=== PATIENT | female | born 1940 | race Caucasian/White ===

== ENCOUNTER → 2016-07-31 | Outpatient (CLI) | payer BC ==
[~2016-07-31] MED LIST: ALBINS/ INH; ALBU0.08 INH; ALBUAER19 INH; ASPI81TA28 PO; ATOR-24 PO; BACL10TA PO; CALC-393 PO; CALCTAB5 PO; CHOL1TAB42 PO; CLC/300 PO; CLOP1TAB15 PO; DIAZ-165 PO; GABA-113 PO; HYDR-4079 PO; LISI-461 PO; LISI10TA PO; MRP25 PO; MULT-506 PO; OXYC1TAB3 PO; PANT1TAB48 PO; PARO1TAB27 PO; PRAM0.754 PO; PRAM1TAB PO; PRED-301 PO; PRED1SUS3 OPR; RANI150T3 PO; SENN-61 PO; SERT50TA PO; VERA180T10 PO; VERA240T20 PO; VITA400C15 PO; VNTHFA/IN INH; VRPSR240 PO
--- NOTE | 2016-07-31 14:29 | DIAGNOSTIC IMAGING REPORT ---
CHEST 2 VIEWS ROUTINE HISTORY: Shortness of breath. COMPARISON: Chest 06/23/2015. FINDINGS: There is a moderate hiatus hernia, unchanged. The heart is normal in size. No focal lung consolidations to suggest pneumonia. No evidence for pulmonary edema. No pleural effusions. No pneumothorax. IMPRESSION: No significant change compared to the prior study. No acute process. Moderate hiatus hernia. Electronically signed by: Caleb Rizo M.D. 07/31/2016 2:27 PM Dictated Date/Time: 07/31/2016 2:26 PM
== END | disposition home or self-care (01) ==
LOC: C.RAD 13:58
PROVIDERS: ATTEND Internal Medicine
DX: R06.02 Shortness of breath (principal); K44.9 Diaphragmatic hernia without obstruction or gangrene

== ENCOUNTER → 2016-10-13 | Day surgery (SDC) | payer BC ==
[2016-09-22 10:41] VITALS: Ht 156.2 cm; Wt 68.2 kg
[~2016-10-13] VITALS: Ht 156.2 cm; Wt 68.2 kg
[~2016-10-13] MED LIST changes: +500ML BSS 0.3ML EPI 1:1000PF IRRIG ONE; +ACETAMINOPHEN 325 MG TAB PO PRN; +AMVISC PLUS 0.8ML SYRINGE INT OCU ONE; +ATROPINE SULFATE 0.1 MG/ML 5ML SYR IV PRN; +BSS FLUSH ONE; -CLOP1TAB15 PO; +EpHEDrine SULFATE INJ 50 MG/ML AMP IV PRN; +EpINEphrine INJ 1MG/ML AMP 1 MG/ML AMP ONE; +FENTANYL CITRATE INJ 50 MCG/1 ML 2 ML VIAL ONE; +LACTATED RINGER'S 1000ML 500 ML IV SCH; +LIDOCAINE 3.5% OPH GEL PER APPLICATION CHARGE ONE; +LIDOCAINE HCL 1% MPF 2 ML VIAL ONE; -LISI10TA PO; +MIDAZOLAM HCL 1 MG/ML 2ML VIAL ONE; -MRP25 PO; +OCUCOAT 1 ML SOLN IO ONE; -OXYC1TAB3 PO; +POVIDONE-IODINE OP SOLN 30 ML BTL ONE; +PROPARACAINE 0.5% OP SOLN PER DROP CHARGE OPR SCH; -RANI150T3 PO; -SENN-61 PO; -SERT50TA PO; +TOBRAMYCIN/DEXAMETHASONE OPH OINT PER APPLN CHARGE ONE; -VERA180T10 PO; -VITA400C15 PO
[2016-10-13] MEDS: PHENYLEPHRINE HCL 2.5% OP SOLN PER DROP CHARGE OPR SCH ×2 (10:38→10:43)
[2016-10-13] MEDS: TROPICAMIDE 1% OP SOLN PER DROP CHARGE OPR SCH ×2 (10:39→10:44)
[2016-10-13] MEDS: CYCLOPENTOLATE HCL 1% OP SOLN PER DROP CHARGE OPR SCH ×2 (10:40→10:45)
[2016-10-13] MEDS: KETOROLAC 0.5% OP SOLN PER DROP CHARGE OPR SCH ×2 (10:41→10:46)
[2016-10-13] MEDS: GATIFLOXACIN OP SOLN PER DROP CHARGE OPR SCH ×2 (10:42→10:52)
--- NOTE | 2016-10-13 11:10 | History & Physical Bridge - SC ---
H&P Re-Evaluation Bridge Note: I have examined the patient, reviewed the History & Physical and in the interval since the performance of the History & Physical I have noted the following changes of clinical significance: Diagnosis: Right Cataract Procedure: Right Cataract Removal with Lens Implant No changes noted
--- NOTE | 2016-10-13 11:36 | History & Physical Bridge - SC ---
H&P Re-Evaluation Bridge Note: I have examined the patient, reviewed the History & Physical and in the interval since the performance of the History & Physical I have noted the following changes of clinical significance: No changes noted
--- NOTE | 2016-10-13 11:55 | Discharge Instructions-SurgCtr ---
Discharge Instructions Date of Service Oct 13, 2016. Visit Reason for Visit: Cataract Right Eye Discharge Discharge Diagnosis / Problem: cataract Discharge Goals Goal(s): Improve function Activity Recommendations Activity Limitations: per Instructions/Follow-up section Anesthesia . Post Anesthesia Instructions: If you have had General Anesthesia or IV Sedation: * Do not drive today. * Resume driving when surgeon permits. * Do not make important decisions or sign legal documents today. * Call surgeon for: 1. Temperature elevations greater than 101 degrees F. 2. Uncontrollable pain. 3. Excessive bleeding. 4. Persistent nausea and vomiting. 5. Medication intolerance (nausea, vomiting or rash). * For nausea and vomiting use only clear liquids such as: tea, soda, bouillon until nausea subsides, then gradually increase diet as tolerated. * If you have any concerns or questions, call your surgeon's office. If physician is unavailable and it is an emergency, call 911 or go to the nearest emergency room. . Instructions / Follow-Up Instructions / Follow-Up ACTIVITY RECOMMENDATIONS: * No strenuous lifting, jogging or running for 4 days * No swimming or yard work for 1 week. * Limited bending is permitted, such as putting on shoes. RETURN TO SCHOOL/WORK: No work until seen by physician in office. MEDICATIONS: Resume previous medications unless instructed otherwise by your surgeon. This includes eye drops for glaucoma. Zymaxid/Gatifloxacin (flores cap) - one drop every 2 hours until bedtime Nevanac/Ilevro/Prolensa/Ketorolac (spear cap) - one drop every 4 hours until bedtime Prednisolone (white/pink cap, SHAKE WELL) - one drop every 2 hours until bedtime Starting tomorrow - all 3 drops every 4 hours until seen in the office Optive drops - as needed for discomfort SPECIAL CARE INSTRUCTIONS: * Wear eyeshield when sleeping, for four nights. * You may wear your own glasses or sunglasses while awake. * You may read or watch TV * You may shower and wash your face, but be gentle around the eye and pat dry. * Blurry vision and mild irritation are normal. * Call office if pain is more severe or vision becomes dark at . FOLLOW UP VISIT: Follow-up with Dr Ivory tomorrow. Diet Recommendations Home Diet: resume previous diet Procedures Procedures Performed: Right Cataract Phacoemulsification With Intraocular Lens Implant Pending Studies Studies pending at discharge: no Medical Emergencies . Who to Call and When: Medical Emergencies: If at any time you feel your situation is an emergency, please call 911 immediately. . Non-Emergent Contact Non-Emergency issues call your: [employer] . . "Provider Documentation" section prepared by Raghav Ivory.
--- NOTE | 2016-10-13 11:56 | [facility] Operative Report ---
Operative Report Date of Service Oct 13, 2016. Operative Report 1. PREOPERATIVE DIAGNOSIS: Cataract of the right eye. 2. POSTOPERATIVE DIAGNOSIS: Same. 3. PROCEDURE: Phacoemulsification with intraocular lens implantation of the right eye. SURGEON: Dr. Raghav Ivory. ANESTHESIA: Topical Lidocaine gel, 1% Non- Preserved intracameral Lidocaine, and monitored intravenous sedation. INDICATIONS FOR THE PROCEDURE: The patient is a 76 - year-old female with a history of cataract of the right eye causing significant visual impairment. The details of the proposed procedure were explained to the patient who asked appropriate questions and following discussion of all risks, benefits and alternatives agreed to have the procedure done. 4. OPERATION AND FINDINGS: DESCRIPTION OF PROCEDURE: After informed consent was obtained, the patient was brought to the Operating Room at the [facility]. The patient was placed in a supine position and then the right eye was prepped and draped in the usual sterile fashion for intraocular surgery. A drop of topical Lidocaine gel was placed in the operative eye. A wire lid speculum was then placed in the fornices. A corneal paracentesis was then created temporally. The Non-Preserved Lidocaine was then instilled into the anterior chamber. The anterior chamber was then pressurized with viscoelastic. A 2.0 mm clear corneal incision was then created temporally. A cystotome was inserted into the anterior chamber and used to create a tear in the anterior lens capsule. This capsular tear was then used to create a small flap and the flap was dragged in a counterclockwise direction in order to create a continuous curvilinear capsulorrhexis. Hydrodissection was accomplished with balanced salt solution. Phacoemulsification of the lens nucleus was then performed in a standard [id number] technique. The phaco time was 21 seconds with an average power of 12 %. The remaining cortical material was removed using irrigation aspiration. The capsular bag was then filled with viscoelastic. A Bausch & Lomb MI60L +23.5 diopters lens was then loaded into the injector and injected into the capsular bag. The remaining viscoelastic was removed with the irrigation aspiration handpiece. The wound was hydrated and then checked and found to be watertight. The intraocular pressure was checked and found to be adequate. The wire lid speculum was removed and the patient's face was cleaned and dried. TobraDex ointment was placed in the inferior fornix. The patient was discharged to the Recovery Room having tolerated the procedure well. There were no complications. The patient will be seen tomorrow in the office for follow-up. I attest to the content of the Intraoperative Record and any orders documented therein. Any exceptions are noted below.
[2016-10-13 12:30] VITALS: BP 151/80; PULSE 63; O2SAT 98
--- NOTE | 2016-10-13 12:47 | Anesthesia Progress Nt - [facility] ---
Anesthesia Post Op Note Date & Time Oct 13, 2016 at 12:46 Vital Signs Pain Intensity: 0 Vital Signs Past 12 Hours Date Time Temp Pulse Resp B/P Pulse Ox O2 Delivery O2 Flow Rate FiO2 10/13/16 12:30 63 16 151/80 98 Room Air 10/13/16 12:00 36.4 62 16 154/75 98 Room Air 10/13/16 10:36 36.8 68 20 150/84 97 Room Air Notes Mental Status: alert / awake / arousable, participated in evaluation Pt Amnestic to Procedure: Yes Nausea / Vomiting: adequately controlled Pain: adequately controlled Airway Patency, RR, SpO2: stable & adequate BP & HR: stable & adequate Hydration State: stable & adequate Anesthetic Complications: no major complications apparent
== END | disposition home or self-care (01) ==
LOC: X.SURG 09:52
PROVIDERS: ATTEND Ophthalmology
DX: H26.9 Unspecified cataract (principal)

== ENCOUNTER → 2016-10-19 | Outpatient (CLI) | payer BC ==
[~2016-10-19] MED LIST changes: -500ML BSS 0.3ML EPI 1:1000PF IRRIG ONE; -ACETAMINOPHEN 325 MG TAB PO PRN; -AMVISC PLUS 0.8ML SYRINGE INT OCU ONE; -ATROPINE SULFATE 0.1 MG/ML 5ML SYR IV PRN; -BSS FLUSH ONE; -EpHEDrine SULFATE INJ 50 MG/ML AMP IV PRN; -EpINEphrine INJ 1MG/ML AMP 1 MG/ML AMP ONE; -FENTANYL CITRATE INJ 50 MCG/1 ML 2 ML VIAL ONE; -LACTATED RINGER'S 1000ML 500 ML IV SCH; -LIDOCAINE 3.5% OPH GEL PER APPLICATION CHARGE ONE; -LIDOCAINE HCL 1% MPF 2 ML VIAL ONE; -MIDAZOLAM HCL 1 MG/ML 2ML VIAL ONE; -OCUCOAT 1 ML SOLN IO ONE; -POVIDONE-IODINE OP SOLN 30 ML BTL ONE; -PROPARACAINE 0.5% OP SOLN PER DROP CHARGE OPR SCH; -TOBRAMYCIN/DEXAMETHASONE OPH OINT PER APPLN CHARGE ONE
[2016-10-19 17:39] LABS: BASO % 0.5 %; BASO ABS # 0.03 K/uL (0-0.2); COMPLETE YES; EOS % 0.3 %; HEMATOCRIT 41.3 % (37-47); IG% 0.2 %; LYMPH % 7.6 %; MEAN CELL VOLUME 97.4 fL (80-100); MEAN CORPUSCULAR HEMOGLOBIN 31.1 pg (25-34); MEAN PLATELET VOLUME 10.4 fL (7.4-10.4); MONO % 5.3 %; NEUT % 86.1 %; PLATELET COUNT 234 K/uL (130-400); RED BLOOD COUNT 4.24 M/uL (4.2-5.4); WHITE BLOOD COUNT 6.61 K/uL (4.8-10.8)
[2016-10-19 19:17] LABS: BLOOD UREA NITROGEN 11 mg/dl (7-18); CALCIUM 8.8 mg/dl (8.5-10.1); CARBON DIOXIDE 23 mmol/L (21-32); CHLORIDE 99 mmol/L (98-107); GLUCOSE 243 mg/dl (70-99); POTASSIUM 3.5 mmol/L (3.5-5.1); SODIUM 137 mmol/L (136-145)
== END | disposition home or self-care (01) ==
LOC: C.LABBFT 11:37
PROVIDERS: ATTEND Nurse Practitioner
DX: R60.9 Edema, unspecified (principal); T14.8 Other injury of unspecified body region; X58.XXXA Exposure to other specified factors, initial encounter

== ENCOUNTER → 2016-10-28 | Outpatient (CLI) | payer BC ==
[2016-10-28 17:44] LABS: ALT/SGPT 30 U/L (12-78); AST/SGOT 16 U/L (15-37); BLOOD UREA NITROGEN 19 mg/dl (7-18); BUN/CREATININE RATIO 22.3 (10-20); CALCIUM 8.7 mg/dl (8.5-10.1); CARBON DIOXIDE 27 mmol/L (21-32); CHLORIDE 105 mmol/L (98-107); CHOLESTEROL 275 mg/dl (0-200); CREATININE 0.85 mg/dl (0.60-1.20); GLUCOSE 118 mg/dl (70-99); POTASSIUM 4.1 mmol/L (3.5-5.1); SODIUM 140 mmol/L (136-145)
[2016-10-28 17:55] LABS: ALB/GLOB RATIO 1.3 (0.9-2); ALKALINE PHOSPHATASE 100 U/L (45-117); CHOLESTEROL/HDL RATIO 3.6; HDL CHOLESTEROL 77 mg/dl; LDL CHOLESTEROL CALCULATED 132 mg/dl; THYROID STIMULATING HORMONE 0.609 uIu/ml (0.300-4.500); TRIGLYCERIDES 329 mg/dl (0-150); VERY LOW DENSITY LIPOPROT CALC 66 mg/dl
[2016-10-29 06:48] LABS: ESTIMATED AVERAGE GLUCOSE 143 mg/dl; HA1C FLAG Normal (Normal)
== END | disposition home or self-care (01) ==
LOC: C.LABBFT 14:28
PROVIDERS: ATTEND Internal Medicine
DX: N31.8 Other neuromuscular dysfunction of bladder (principal); R73.01 Impaired fasting glucose; E78.5 Hyperlipidemia, unspecified

== ENCOUNTER → 2016-11-05 | Day surgery (SDC) | payer BC ==
[2016-10-26 11:06] VITALS: Ht 156.2 cm; Wt 68.2 kg
[~2016-11-05] VITALS: Ht 156.2 cm; Wt 68.2 kg
[~2016-11-05] MED LIST changes: +ACETAMINOPHEN 325 MG TAB PO PRN; +ATROPINE SULFATE 0.1 MG/ML 5ML SYR IV PRN; +EpHEDrine SULFATE INJ 50 MG/ML AMP IV PRN; +EpINEphrine INJ 1MG/ML AMP 1 MG/ML AMP ONE; +FENTANYL CITRATE INJ 50 MCG/1 ML 2 ML VIAL IV PRN; +FENTANYL CITRATE INJ 50 MCG/1 ML 2 ML VIAL ONE; +FLUMAZENIL 0.1 MG/1 ML 10 ML VIAL IV PRN; +HYDROmorphone INJ 2 MG/ML SYR/VIAL IV PRN; +LABETALOL HCL IV 5 MG/ML 20ML IV PRN; +LACTATED RINGER'S 1000ML 500 ML IV SCH; +LIDOCAINE 3.5% OPH GEL PER APPLICATION CHARGE ONE; +LIDOCAINE HCL 1% MPF 2 ML VIAL ONE; +MEPERIDINE HCL 25 MG/ML CARP IV PRN; +MIDAZOLAM HCL 1 MG/ML 2ML VIAL ONE; +NALOXONE HCL 0.4 MG/1 ML VIAL/CARP IV PRN; +ONDANSETRON INJ 2 MG/ML 2 ML VIAL IV PRN; +PHENYLEPHRINE 100MCG/ML 5ML SYR IV PRN; +POVIDONE-IODINE OP SOLN 30 ML BTL ONE; +PROPARACAINE 0.5% OP SOLN PER DROP CHARGE OPL SCH; +TOBRAMYCIN/DEXAMETHASONE OPH OINT PER APPLN CHARGE ONE
[2016-11-05] MEDS: PHENYLEPHRINE HCL 2.5% OP SOLN PER DROP CHARGE OPL SCH ×2 (08:27→08:35)
[2016-11-05] MEDS: TROPICAMIDE 1% OP SOLN PER DROP CHARGE OPL SCH ×2 (08:28→08:36)
[2016-11-05] MEDS: CYCLOPENTOLATE HCL 1% OP SOLN PER DROP CHARGE OPL SCH ×2 (08:29→08:37)
[2016-11-05] MEDS: KETOROLAC 0.5% OP SOLN PER DROP CHARGE OPL SCH ×2 (08:30→08:38)
[2016-11-05] MEDS: GATIFLOXACIN OP SOLN PER DROP CHARGE OPL SCH ×2 (08:31→08:41)
--- NOTE | 2016-11-05 08:52 | History & Physical Bridge - SC ---
H&P Re-Evaluation Bridge Note: I have examined the patient, reviewed the History & Physical and in the interval since the performance of the History & Physical I have noted the following changes of clinical significance: Diagnosis: Left Cataract Procedure: Left Cataract Removal with Lens Implant No changes noted
--- NOTE | 2016-11-05 09:36 | Discharge Instructions-SurgCtr ---
Discharge Instructions Date of Service November 05, 2016. Visit Reason for Visit: Cataract Left Eye Discharge Discharge Diagnosis / Problem: cataract Discharge Goals Goal(s): Improve function Activity Recommendations Activity Limitations: per Instructions/Follow-up section Anesthesia . Post Anesthesia Instructions: If you have had General Anesthesia or IV Sedation: * Do not drive today. * Resume driving when surgeon permits. * Do not make important decisions or sign legal documents today. * Call surgeon for: 1. Temperature elevations greater than 101 degrees F. 2. Uncontrollable pain. 3. Excessive bleeding. 4. Persistent nausea and vomiting. 5. Medication intolerance (nausea, vomiting or rash). * For nausea and vomiting use only clear liquids such as: tea, soda, bouillon until nausea subsides, then gradually increase diet as tolerated. * If you have any concerns or questions, call your surgeon's office. If physician is unavailable and it is an emergency, call 911 or go to the nearest emergency room. . Instructions / Follow-Up Instructions / Follow-Up ACTIVITY RECOMMENDATIONS: * No strenuous lifting, jogging or running for 4 days * No swimming or yard work for 1 week. * Limited bending is permitted, such as putting on shoes. RETURN TO SCHOOL/WORK: No work until seen by physician in office. MEDICATIONS: Resume previous medications unless instructed otherwise by your surgeon. This includes eye drops for glaucoma. Zymaxid/Gatifloxacin (flores cap) - one drop every 2 hours until bedtime Nevanac/Ilevro/Prolensa/Ketorolac (spear cap) - one drop every 4 hours until bedtime Prednisolone (white/pink cap, SHAKE WELL) - one drop every 2 hours until bedtime Starting tomorrow - all 3 drops every 4 hours until seen in the office Optive drops - as needed for discomfort SPECIAL CARE INSTRUCTIONS: * Wear eyeshield when sleeping, for four nights. * You may wear your own glasses or sunglasses while awake. * You may read or watch TV * You may shower and wash your face, but be gentle around the eye and pat dry. * Blurry vision and mild irritation are normal. * Call office if pain is more severe or vision becomes dark at . FOLLOW UP VISIT: Follow-up with Dr Ivory tomorrow. Diet Recommendations Home Diet: resume previous diet Procedures Procedures Performed: Left Cataract Phacoemulsification With Intraocular Lens Implant Pending Studies Studies pending at discharge: no Medical Emergencies . Who to Call and When: Medical Emergencies: If at any time you feel your situation is an emergency, please call 911 immediately. . Non-Emergent Contact Non-Emergency issues call your: [employer] . . "Provider Documentation" section prepared by Raghav Ivory. .
--- NOTE | 2016-11-05 09:37 | [facility] Operative Report ---
Operative Report Date of Service November 05, 2016. Operative Report 1. PREOPERATIVE DIAGNOSIS: Cataract of the left eye. 2. POSTOPERATIVE DIAGNOSIS: Same. 3. PROCEDURE: Phacoemulsification with intraocular lens implantation of the left eye. SURGEON: Dr. Raghav Ivory. ANESTHESIA: Topical Lidocaine gel, 1% Non- Preserved intracameral Lidocaine, and monitored intravenous sedation. INDICATIONS FOR THE PROCEDURE: The patient is a 76 - year-old female with a history of cataract of the left eye causing significant visual impairment. The details of the proposed procedure were explained to the patient who asked appropriate questions and following discussion of all risks, benefits and alternatives agreed to have the procedure done. 4. OPERATION AND FINDINGS: DESCRIPTION OF PROCEDURE: After informed consent was obtained, the patient was brought to the Operating Room at the [facility]. The patient was placed in a supine position and then the left eye was prepped and draped in the usual sterile fashion for intraocular surgery. A drop of topical Lidocaine gel was placed in the operative eye. A wire lid speculum was then placed in the fornices. A corneal paracentesis was then created temporally. The Non-Preserved Lidocaine was then instilled into the anterior chamber. The anterior chamber was then pressurized with viscoelastic. A 2.0 mm clear corneal incision was then created temporally. A cystotome was inserted into the anterior chamber and used to create a tear in the anterior lens capsule. This capsular tear was then used to create a small flap and the flap was dragged in a counterclockwise direction in order to create a continuous curvilinear capsulorrhexis. Hydrodissection was accomplished with balanced salt solution. Phacoemulsification of the lens nucleus was then performed in a standard [id number] technique. The phaco time was 24 seconds with an average power of 14 %. The remaining cortical material was removed using irrigation aspiration. The capsular bag was then filled with viscoelastic. A Bausch & Lomb MI60L +25.5 diopters lens was then loaded into the injector and injected into the capsular bag. The remaining viscoelastic was removed with the irrigation aspiration handpiece. The wound was hydrated and then checked and found to be watertight. The intraocular pressure was checked and found to be adequate. The wire lid speculum was removed and the patient's face was cleaned and dried. TobraDex ointment was placed in the inferior fornix. The patient was discharged to the Recovery Room having tolerated the procedure well. There were no complications. The patient will be seen tomorrow in the office for follow-up. I attest to the content of the Intraoperative Record and any orders documented therein. Any exceptions are noted below.
[2016-11-05 09:39] VITALS: TEMP 36.2
--- NOTE | 2016-11-05 09:51 | Anesthesia Progress Nt - [facility] ---
Anesthesia Post Op Note Date & Time November 05, 2016 at 09:51 Vital Signs Pain Intensity: 0 Vital Signs Past 12 Hours Date Time Temp Pulse Resp B/P Pulse Ox O2 Delivery O2 Flow Rate FiO2 11/05/16 09:39 36.2 57 16 158/77 94 Room Air 11/05/16 08:08 36.5 58 16 145/82 95 Room Air Notes Mental Status: alert / awake / arousable, participated in evaluation Pt Amnestic to Procedure: Yes Nausea / Vomiting: adequately controlled Pain: adequately controlled Airway Patency, RR, SpO2: stable & adequate BP & HR: stable & adequate Hydration State: stable & adequate Anesthetic Complications: no major complications apparent
[2016-11-05 10:08] VITALS: BP 142/76; PULSE 68; O2SAT 95
== END | disposition home or self-care (01) ==
LOC: X.SURG 07:48
PROVIDERS: ATTEND Ophthalmology
DX: H25.9 Unspecified age-related cataract (principal); I25.10 Atherosclerotic heart disease of native coronary artery without angina pectoris; I51.9 Heart disease, unspecified; J45.909 Unspecified asthma, uncomplicated; K21.9 Gastro-esophageal reflux disease without esophagitis; D68.51 Activated protein C resistance; L93.0 Discoid lupus erythematosus; I10 Essential (primary) hypertension; E78.5 Hyperlipidemia, unspecified; Z79.52 Long term (current) use of systemic steroids; M81.0 Age-related osteoporosis without current pathological fracture; G47.33 Obstructive sleep apnea (adult) (pediatric); G25.81 Restless legs syndrome; E55.9 Vitamin D deficiency, unspecified; Z79.899 Other long term (current) drug therapy

== ENCOUNTER 2016-11-18 12:50 | Emergency (ER) | payer BC ==
[~2016-11-18] VITALS: Ht 154.9 cm; Wt 69.7 kg
[~2016-11-18 12:50] MED LIST changes: -ACETAMINOPHEN 325 MG TAB PO PRN; -ASPI81TA28 PO; -ATROPINE SULFATE 0.1 MG/ML 5ML SYR IV PRN; -CALC-393 PO; -CLC/300 PO; -EpHEDrine SULFATE INJ 50 MG/ML AMP IV PRN; -EpINEphrine INJ 1MG/ML AMP 1 MG/ML AMP ONE; -FENTANYL CITRATE INJ 50 MCG/1 ML 2 ML VIAL IV PRN; -FENTANYL CITRATE INJ 50 MCG/1 ML 2 ML VIAL ONE; -FLUMAZENIL 0.1 MG/1 ML 10 ML VIAL IV PRN; -HYDROmorphone INJ 2 MG/ML SYR/VIAL IV PRN; -LABETALOL HCL IV 5 MG/ML 20ML IV PRN; -LACTATED RINGER'S 1000ML 500 ML IV SCH; -LIDOCAINE 3.5% OPH GEL PER APPLICATION CHARGE ONE; -LIDOCAINE HCL 1% MPF 2 ML VIAL ONE; -MEPERIDINE HCL 25 MG/ML CARP IV PRN; -MIDAZOLAM HCL 1 MG/ML 2ML VIAL ONE; -NALOXONE HCL 0.4 MG/1 ML VIAL/CARP IV PRN; -ONDANSETRON INJ 2 MG/ML 2 ML VIAL IV PRN; -PHENYLEPHRINE 100MCG/ML 5ML SYR IV PRN; -POVIDONE-IODINE OP SOLN 30 ML BTL ONE; -PRAM0.754 PO; -PROPARACAINE 0.5% OP SOLN PER DROP CHARGE OPL SCH; -TOBRAMYCIN/DEXAMETHASONE OPH OINT PER APPLN CHARGE ONE; -VNTHFA/IN INH; -VRPSR240 PO
[2016-11-18 12:52] VITALS: TEMP 36.9; Ht 154.9 cm; Wt 69.7 kg
[2016-11-18] MEDS ORDERED: HYDROCODONE/ACETAMOPHEN 5/325MG TAB PO STA (13:20)
--- NOTE | 2016-11-18 14:21 | EMERGENCY ROOM VISIT NOTE ---
ED Visit Note First contact with patient: 13:01 I have seen and examined this patient with Renata Stinson and generally agree with the treatment plan as discussed. Problem List Medical Problems: (1) Acute exacerbation of chronic low back pain Status: Resolved (2) Acute exacerbation of chronic low back pain Status: Resolved (3) Altered mental status Status: Resolved (4) Asthma, Unspecified Status: Chronic (5) Chronic low back pain Status: Chronic (6) Confusion Status: Resolved (7) Factor V Leiden Status: Chronic (8) Fever Status: Resolved (9) History of spinal stenosis Status: Chronic (10) Hypertension Nos Status: Chronic (11) Low back pain Status: Resolved (12) Low back pain Status: Resolved (13) Lupus Status: Chronic (14) Mixed Hyperlipidemia Status: Chronic (15) Narcotic withdrawal Status: Resolved (16) Obstructive Sleep Apnea (Adult) (Pediatric) Status: Chronic (17) Opioid withdrawal Status: Resolved (18) Pneumonia Status: Resolved (19) Reflux Esophagitis Status: Chronic (20) Restless leg syndrome Status: Chronic (21) Shortness of breath Status: Resolved (22) Spinal stenosis Status: Resolved (23) Stroke Status: Resolved (24) Unspecified Urinary Incontinence Status: Chronic (25) Weakness Status: Resolved Surgical Problems: (1) H/O cataract extraction Status: Resolved (2) History of back surgery Status: Resolved Current/Historical Medications Scheduled Albuterol Sulf (Proventil 0.083% 2.5MG/3ML), 2.5 MG INH QAM Atorvastatin (Lipitor), 40 MG PO QPM Calcium (Caltrate), 600 MG PO BID Cholecalciferol (Vitamin D), 1 TAB PO QAM Gabapentin (Neurontin), 300 MG PO HS Lisinopril (Zestril), 10 MG PO HS Multivitamin (Multivitamin), 1 TAB PO QAM Pantoprazole (Protonix), 40 MG PO BID Paroxetine (Paxil), 20 MG PO QAM Pramipexole Dihydrochloride (Mirapex), 1 TAB PO HS Prednisolone Acetate (Ophth) (Pred Forte 1% Oph), 1 DROPS OPR TID Prednisone (Prednisone), 7.5 MG PO QAM Verapamil Sust Rel (Calan Sr Ext Rel), 240 MG PO HS Scheduled PRN Albuterol Inhaler (Ventolin Inhaler), 2 PUFFS INH QID PRN for Shortness of Breath Albuterol Soln (Proventil 0.083% 2.5MG/3ML), 2.5 MG INH QID PRN for SOB/Wheezing Baclofen (Lioresal), 10 MG PO HS PRN for Muscle Spasms Diazepam (Valium), 5 MG PO TID PRN for Muscle Spasms Hydrocodone/Acetaminophen 10MG/325MG (Ephraim 10MG/325MG), 1 TAB PO Q6H PRN for Pain Allergies Coded Allergies: Penicillins (Verified Allergy, Intermediate, HIVES, 11/05/16) Adhesives (Verified Allergy, Unknown, SKIN REDNESS AND IRRITATION, 11/05/16 ) Latex (Verified Allergy, Unknown, PATIENT UNSURE, 11/05/16) Tolterodine (Verified Adverse Reaction, Intermediate, GI SYMPTOMS, 11/05/16 ) Nausea/vomiting Vital Signs Date Time Temp Pulse Resp B/P Pulse Ox O2 Delivery O2 Flow Rate FiO2 11/18/16 12:52 36.9 82 18 171/91 96 Room Air Medications Administered Medications (Trade) Dose Ordered Sig/Bruce Route Start Time Stop Time Status Last Admin Dose Admin Acetaminophen/ Hydrocodone Bitart (Ephraim 5/325 Tab) 1 tab NOW STAT PO 11/18/16 13:20 11/18/16 13:22 DC 11/18/16 13:50 1 TAB Departure Information Referrals Manuel Crum M.D. (PCP) Patient Instructions [facility]
[2016-11-18] MEDS ORDERED: VNTHFA/IN INH (14:25)
[2016-11-18] MEDS ORDERED: ALBINS/ INH (14:25)
[2016-11-18] MEDS ORDERED: VRPSR240 PO (14:25)
[2016-11-18] MEDS ORDERED: PRAM0.754 PO (14:25)
[2016-11-18] MEDS ORDERED: ATOR-24 PO (14:25)
[2016-11-18] MEDS ORDERED: CALC-393 PO (14:26)
[2016-11-18] MEDS ORDERED: ASPI81TA28 PO (14:29)
--- NOTE | 2016-11-18 14:36 | DIAGNOSTIC IMAGING REPORT ---
RIGHT WRIST MIN 3 VIEWS ROUTINE CLINICAL HISTORY: RIGHT, EVAL FX Right trauma. Pain. COMPARISON: None. DISCUSSION: Transverse slightly ankle fracture distal ulnar shaft. No evidence of dislocation. Mild surrounding soft tissue edematous change. Significant degenerative change of the carpometacarpal region. IMPRESSION: Slightly angled fracture distal ulnar shaft. Degenerative change. Electronically signed by: Mitcehl Wright M.D. 11/18/2016 2:35 PM Dictated Date/Time: 11/18/2016 2:34 PM
--- NOTE | 2016-11-18 14:38 | DIAGNOSTIC IMAGING REPORT ---
RIGHT ELBOW 3 VIEWS CLINICAL HISTORY: Fall with right elbow pain. FINDINGS: 3 portable views of the right elbow are obtained. No prior studies are available for comparison at the time of dictation. The examination is degraded by inability to properly position the patient. The skeletal structures are osteopenic. There is no radiographic evidence of fracture. The joint spaces appear maintained. No joint effusion is identified. The overlying soft tissues are within normal limits. IMPRESSION: There is no radiographic evidence of right elbow fracture. Electronically signed by: Elia Junior M.D. 11/18/2016 2:37 PM Dictated Date/Time: 11/18/2016 2:35 PM
[2016-11-18] MEDS ORDERED: DIPHTHERIA/TETANUS/PERTUSSIS 0.5 ML SYR/VIAL IM. ONE (14:45)
[2016-11-18] MEDS ORDERED: LIDOCAINE/EPINEPHRINE 1% 20 ML VIAL INFIL ONE (14:45)
[2016-11-18] MEDS ORDERED: CLC/300 PO (16:19)
--- NOTE | 2016-11-18 16:21 | EMERGENCY ROOM VISIT NOTE ---
History First contact with patient: 13:01 Chief Complaint: FALL Stated Complaint: FALL History of Present Illness Patient is a [id number] 76-year-old white female who presents to the emergency department by S ambulance and accompanied by her for evaluation of a right forearm injury. Patient sustained a mechanical fall outside on her deck this afternoon. She reports that she was picking bugs off follow-up plans, and was walking without her cane or walker, when she lost her balance and fell. She tried to grab a hold of a pole on the deck, but it was not secured and she fell. She landed on her flexed knees, and tried to catch herself on her extended arms, right worse than left. She did not strike her head or lose consciousness. Her was out walking their dog, and found her and helped her up. She was ambulatory into the home where they applied a towel to her forearm and an ice pack. There was bleeding from a small laceration on the right forearm. The patient complains primarily of pain from her right wrist to her right elbow. She has been holding it on her chest and states that it hurts to move. They noted bruising to her knees bilaterally, right worse than left, and a small abrasion. She denies feeling lightheaded, dizzy or experiencing any palpitations prior to the fall. She reports that she has difficulty ambulating well due to arthritis and lumbar spine disease. She reports that she had a fall in her bedroom about a week ago when she injured the same right wrist. Patient rates her discomfort a 9/10. She denies any chest, neck or low back pain. No rib pain. No difficulty breathing, cough, wheezing or shortness of breath. Review of Systems Review of systems as per HPI. All other systems reviewed were negative. 10 systems reviewed. Past Medical/Surgical History Medical Problems: (1) Acute exacerbation of chronic low back pain (2) Acute exacerbation of chronic low back pain (3) Altered mental status (4) Asthma, Unspecified (5) Chronic low back pain (6) Confusion (7) Factor V Leiden (8) Fever (9) History of spinal stenosis (10) Hypertension Nos (11) Low back pain (12) Low back pain (13) Lupus (14) Mixed Hyperlipidemia (15) Narcotic withdrawal (16) Obstructive Sleep Apnea (Adult) (Pediatric) (17) Opioid withdrawal (18) Pneumonia (19) Reflux Esophagitis (20) Restless leg syndrome (21) Shortness of breath (22) Spinal stenosis (23) Stroke (24) Unspecified Urinary Incontinence (25) Weakness Surgical Problems: (1) H/O cataract extraction (2) History of back surgery Electronic medical records are reviewed and summarized as above/below. See Problem List. Family History No pertinent family history Social History Smoking Status: Never Smoker Alcohol Use: none Drug Use: none Marital Status: Housing Status: lives with family, unknown Occupation Status: retired Current/Historical Medications Scheduled Albuterol Hfa (Ventolin Hfa), 2 PUFFS INH QID Albuterol Sulf (Proventil 0.083% 2.5MG/3ML), 2.5 MG INH QID Aspirin (Aspirin Ec), 81 MG PO QPM Calcium Carbonate (Calcium), 600 MG PO BID Cholecalciferol (Vitamin D), 1 TAB PO QAM Clindamycin HCl (Clindamycin HCl), 1 CAP PO TID Gabapentin (Neurontin), 300 MG PO HS Multivitamin (Multivitamin), 1 TAB PO QAM Pantoprazole (Protonix), 40 MG PO BID Paroxetine (Paxil), 20 MG PO QAM Pramipexole Dihydrochloride (Pramipexole Dihydrochlori), 0.75 MG PO QPM Prednisolone Acetate (Ophth) (Pred Forte 1% Oph), 1 DROPS OPR TID Prednisone (Prednisone), 7.5 MG PO QAM Verapamil HCl (Verapamil HCl ER), 240 MG PO QPM Scheduled PRN Baclofen (Lioresal), 10 MG PO HS PRN for Muscle Spasms Diazepam (Valium), 5 MG PO TID PRN for Muscle Spasms Allergies Coded Allergies: Penicillins (Verified Allergy, Intermediate, HIVES, 11/05/16) Adhesives (Verified Allergy, Unknown, SKIN REDNESS AND IRRITATION, 11/05/16 ) Latex (Verified Allergy, Unknown, PATIENT UNSURE, 11/05/16) Tolterodine (Verified Adverse Reaction, Intermediate, GI SYMPTOMS, 11/05/16 ) Nausea/vomiting Physical Exam Vital Signs Date Time Temp Pulse Resp B/P Pulse Ox O2 Delivery O2 Flow Rate FiO2 11/18/16 16:25 68 18 154/82 98 Room Air 11/18/16 12:52 36.9 82 18 171/91 96 Room Air Physical Exam GENERAL: Patient is a well appearing, uncomfortable, 76-year-old white female who is awake and alert and laying on the gurney IA upright, holding her left arm across her chest. HEENT: Head - normocephalic and atraumatic. Pupils are equal, round, and reactive to light. Extraocular eye muscles are intact and sclera are anicteric. Ears - bilaterally patent canals with no evidence of hemotympanum. Mouth - moist buccal mucosa with no trauma to the teeth or signs of malocclusion. Neck: The neck is supple and there is no pain to palpation over the posterior cervical spine and no obvious step-offs or deformities. There is no JVD or tracheal deviation. Chest: There are no signs of deformities, contusions or abrasions to the chest wall. There is no obvious crepitus or paradoxical chest rise. Heart: Regular rate, and regular rhythm. Lungs: Breath sounds equal and clear to auscultation. Abdomen: Soft, completely nontender, nondistended, with good bowel sounds. There is no sign of trauma such as contusions, abrasions or penetrations. Pelvis: Stable to rock and compression. Extremities: Examination of the right forearm show a 3 cm laceration on the ulnar aspect of the forearm. She has an adjacent hematoma. There is no obvious deformity. She has tenderness over the distal radius and ulna, extending into the distal third of the forearm. No pain in the metacarpal distribution. She can wiggle and move her fingers normally. She does not have any pain over the proximal radial head or over the olecranon process. No elbow joint effusion is palpable. She can be gently extended and flexed at the elbow. Pronation and supination not assessed. She has no pain in the humerus or in the shoulder. Well-healed surgical scar is noted. She has chronic decreased range of motion of the right shoulder. Sensation to light touch is intact over the entire right upper extremity. There are easily palpable peripheral pulses. Medical Decision & Procedures ER Provider Diagnostic Interpretation: RIGHT ELBOW 3 VIEWS CLINICAL HISTORY: Fall with right elbow pain. FINDINGS: 3 portable views of the right elbow are obtained. No prior studies are available for comparison at the time of dictation. The examination is degraded by inability to properly position the patient. The skeletal structures are osteopenic. There is no radiographic evidence of fracture. The joint spaces appear maintained. No joint effusion is identified. The overlying soft tissues are within normal limits. IMPRESSION: There is no radiographic evidence of right elbow fracture. RIGHT WRIST MIN 3 VIEWS ROUTINE CLINICAL HISTORY: RIGHT, EVAL FX Right trauma. Pain. COMPARISON: None. DISCUSSION: Transverse slightly ankle fracture distal ulnar shaft. No evidence of dislocation. Mild surrounding soft tissue edematous change. Significant degenerative change of the carpometacarpal region. IMPRESSION: Slightly angled fracture distal ulnar shaft. Degenerative change. Medications Administered Medications (Trade) Dose Ordered Sig/Bruce Route Start Time Stop Time Status Last Admin Dose Admin Acetaminophen/ Hydrocodone Bitart (Adak 5/325 Tab) 1 tab NOW STAT PO 11/18/16 13:20 11/18/16 13:22 DC 11/18/16 13:50 1 TAB Diphtheria/ Pertussis/Tetanus Vacc (Adacel Inj) 0.5 ml ONCE ONCE IM. 11/18/16 14:45 11/18/16 14:46 DC 11/18/16 14:59 0.5 ML Procedure Location: Ulnar aspect right forearm Total length: 3 cm The skin was prepped with betadine and draped sterilely. The target area was anesthetized with 1% lidocaine with epinephrine. Copious irrigation was performed using 250 mL of normal saline solution. The wound was explored for foreign bodies and none found. The wound did extend through to the subcutaneous tissue, however despite thorough examination and palpation, I could not palpate or appreciate the ulna or fracture site in the base of the wound. Debridement was not performed. The wound edges were approximated using 5 -0 simple interrupted nylon sutures. Hemostasis and excellent approximation was achieved. Sterile dressing applied.No complications and the patient tolerated the procedure well. ED Course The patient was seen and evaluated as above. Her old records are reviewed. Patient requested oral medication for discomfort. She is on Adak daily. She was given a Adak 5/325 mg tablet by mouth. X-rays of the right wrist and elbow were obtained. Findings are as noted above with a slightly angulated fracture of the distal ulnar shaft. Patient was reviewed with attending physician who also independently evaluated the patient. Per above procedure note, the area was cleansed and draped sterilely and anesthetized. Wound was inspected thoroughly. Initially, it was thought that wound was superficial, and did not extend through the subcutaneous tissue, however upon further examination it did extend into the deeper space of the forearm. Given this, consultation was placed with Dr. Powell with whom the patient is established from orthopedics. Wound is discussed thoroughly with him. Based on my examination and the radiographic findings, it was felt that the laceration was adjacent to the fracture, and did not correspond with the fracture site. Wound was still irrigated thoroughly as per above, and patient will be placed on prophylactic antibiotics nonetheless. Wound was repaired as above. Patient was placed in a sugar tong splint and an arm sling. She will continue her home Vicodin use as needed for pain. She declined any prescription needs. She will follow-up with [facility] tomorrow for further care and evaluation. The patient sustained a mechanical fall on her patio this afternoon, injuring her right forearm. She has findings consistent with an ulnar fracture and an adjacent laceration. Fall was not consistent with seizure, syncope or arrhythmia. She is neurovascularly intact. The patient rated her discomfort a 2/10 at discharge. Medical Decision See ED course. Impression Primary Impression: Ulna fracture Additional Impressions: Laceration of forearm, right Fall Departure Information Prescriptions Clindamycin HCl (Clindamycin HCl) 300 Mg Cap 1 CAP PO TID for 5 Days, #15 CAP Prov: Cyndee Stinson PA 11/18/16 Referrals Manuel Crum M.D. (PCP) Patient Instructions My [facility] Additional Instructions DO NOT drive, drink alcohol, operate machinery, or perform dangerous activities today. You were given medications in the ER that can affect your ability to safely function or operate a vehicle. Clindamycin 300 mg: Take one pill 3 times daily for 5 days to prevent infection. All antibiotics can cause diarrhea. If this occurs and you feel worse or it does not resolve in 1-2 days follow up with your doctor or return to the Emergency Department as this could be signs of serious underlying problems. Any medication can cause an allergic reaction, stop the pills immediately and return to the ER for rash, hives, breathing difficulties, or swelling. May use your hydrocodone one to one and a half tablets every 4-6 hours as needed for pain. Ice compresses for 20 minutes at a time four times daily for 2-3 days. Use the sling as instructed. Remove your arm from the sling 4-6 times a day and move all the joints around to keep them loose. Rest and elevate your injury. Do not get the splint wet. If your splint feels excessively tight, you have worsening pain, develop numbness or tingling, or your digits appear blue, loosen the kaushik wrap. Then reapply the kaushik wrap gently without removing the splint. If your symptoms are not quickly relieved return to the ER for re- evaluation. Continue current medications. Return to the ER immediately for any numbness, tingling, severe pain, extreme swelling in the extremity or as needed. Call [facility] tomorrow to arrange follow up for your injury. Problem Qualifiers
[2016-11-18 16:25] VITALS: BP 154/82; PULSE 68; O2SAT 98
== END 2016-11-18 16:50 | disposition home or self-care (01) ==
LOC: EDBD 12:50 → C.EDB 12:56
DX: S52.221A Displaced transverse fracture of shaft of right ulna, initial encounter for closed fracture (principal); S51.811A Laceration without foreign body of right forearm, initial encounter; Y93.89 Activity, other specified; Y92.009 Unspecified place in unspecified non-institutional (private) residence as the place of occurrence of the external cause; J45.909 Unspecified asthma, uncomplicated; M54.5 Low back pain; G89.29 Other chronic pain; K21.9 Gastro-esophageal reflux disease without esophagitis; D68.51 Activated protein C resistance; I10 Essential (primary) hypertension; G47.33 Obstructive sleep apnea (adult) (pediatric); G25.81 Restless legs syndrome; M32.9 Systemic lupus erythematosus, unspecified; E78.2 Mixed hyperlipidemia; Z79.899 Other long term (current) drug therapy; Z23 Encounter for immunization

== ENCOUNTER → 2016-11-25 | Outpatient (CLI) | payer BC ==
[~2016-11-25] MED LIST changes: -ALBU0.08 INH; -ALBUAER19 INH; +ASPI81TA28 PO; -ATOR-24 PO; +CALC-393 PO; -CALCTAB5 PO; -HYDR-4079 PO; -LISI-461 PO; +PRAM0.754 PO; -PRAM1TAB PO; -VERA240T20 PO; +VNTHFA/IN INH; +VRPSR240 PO
--- NOTE | 2016-11-25 11:40 | DIAGNOSTIC IMAGING REPORT ---
RIGHT WRIST 3 VIEWS CLINICAL HISTORY: Wrist fracture. FINDINGS: 3 views the right wrist are compared to study dated 11/18/2016. The skeletal structures are osteopenic. Again seen is an angulated fracture through the distal ulnar diaphysis. Alignment is modestly improved from 11/18/2016. No new fracture is seen. Degenerative narrowing is seen at the radiocarpal articulation. There is widening between the scaphoid and the lunate consistent with ligamentous injury with mild proximal migration of the capitate. Arthritic change is seen throughout the intercarpal and carpometacarpal joints. Advanced arthritic change is also seen at the first metacarpophalangeal joint. Chondrocalcinosis is noted in the triangular fibrocartilage. Mild soft tissue swelling is present around the wrist. IMPRESSION: 1. Modestly improved alignment of a minimally distracted and angulated spiral fracture through the distal ulnar metaphysis as compared to 11/18/2016. 2. Soft tissue swelling is present around the wrist. No additional fracture is seen. 3. Osteopenia, arthritic change, chondrocalcinosis of the triangular fibrocartilage, and evidence of a SLAC wrist. Electronically signed by: Elia Junior M.D. 11/25/2016 11:39 AM Dictated Date/Time: 11/25/2016 11:34 AM
--- NOTE | 2016-11-25 12:22 | DIAGNOSTIC IMAGING REPORT ---
RIGHT SHOULDER 2 VIEWS CLINICAL HISTORY: Chronic right shoulder pain. FINDINGS: 2 views of the right shoulder are compared to study dated 11/29/2013. The skeletal structures are osteopenic. No fracture or dislocation is identified. There is advanced sclerotic degenerative change identified in the humeral head. There is superior subluxation of the humeral head with near-complete loss of the subacromial space consistent with chronic rotator cuff injury. This is unchanged from previous. Advanced productive change is seen at the acromioclavicular joint with mild joint space widening. Overlying soft tissues are within normal limits. The visualized right upper lobe lung parenchyma is clear. IMPRESSION: 1. No acute bony abnormality is seen in the right shoulder. 2. Osteopenia, advanced arthritic change, and evidence of chronic rotator cuff injury as above. These findings are similar to the 11/29/2013 examination. Electronically signed by: Elia Junior M.D. 11/25/2016 12:20 PM Dictated Date/Time: 11/25/2016 12:18 PM
--- NOTE | 2016-11-25 12:27 | DIAGNOSTIC IMAGING REPORT ---
RIGHT ELBOW 2 VIEWS CLINICAL HISTORY: Right elbow pain following fall. COMPARISON: Right elbow radiographs November 18, 2016. FINDINGS: Alignment of the right elbow is anatomic. There is no joint effusion or fracture. Minimal calcific density along the olecranon is chronic. IMPRESSION: No acute fracture or joint effusion of the right elbow. Electronically signed by: Jerry Ayoub M.D. 11/25/2016 12:26 PM Dictated Date/Time: 11/25/2016 12:25 PM
== END | disposition home or self-care (01) ==
LOC: C.RDSM 11:50
PROVIDERS: ATTEND Physician Assistant
DX: M25.511 Pain in right shoulder (principal); S52.234D Nondisplaced oblique fracture of shaft of right ulna, subsequent encounter for closed fracture with routine healing; X58.XXXD Exposure to other specified factors, subsequent encounter; M85.811 Other specified disorders of bone density and structure, right shoulder

== ENCOUNTER → 2016-12-02 | Outpatient (CLI) | payer BC | END | disposition home or self-care (01) | LOC: C.RDSM 13:08 | PROVIDERS: ATTEND Physical Medicine & Rehabilitation Sports Medicine | DX: S52.234D Nondisplaced oblique fracture of shaft of right ulna, subsequent encounter for closed fracture with routine healing (principal); X58.XXXD Exposure to other specified factors, subsequent encounter ==

== ENCOUNTER → 2017-01-05 | Outpatient (CLI) | payer BC ==
--- NOTE | 2017-01-05 15:23 | DIAGNOSTIC IMAGING REPORT ---
RIGHT FOREARM 2 VIEWS CLINICAL HISTORY: Fracture. COMPARISON: 12/02/2016 DISCUSSION: The bones are osteopenic. There is a healing fracture of the ulna the junction of middle and distal one third area alignment remains unchanged from the prior study. There is moderately exuberant callus formation at the fracture site IMPRESSION: Healing fracture of the ulna the junction of the middle distal one third. No significant change in alignment. Electronically signed by: Felton Barragan M.D. 01/05/2017 3:21 PM Dictated Date/Time: 01/05/2017 3:19 PM
== END | disposition home or self-care (01) ==
LOC: C.RDSM 09:11
PROVIDERS: ATTEND Physical Medicine & Rehabilitation Sports Medicine
DX: S52.234D Nondisplaced oblique fracture of shaft of right ulna, subsequent encounter for closed fracture with routine healing (principal); X58.XXXD Exposure to other specified factors, subsequent encounter

== ENCOUNTER → 2017-02-05 | Outpatient (CLI) | payer BC ==
--- NOTE | 2017-02-05 14:19 | DIAGNOSTIC IMAGING REPORT ---
RIGHT FOREARM 2 VIEWS CLINICAL HISTORY: Ulnar fracture COMPARISON: 01/05/2017 DISCUSSION: The bones are osteopenic. There is a healing fracture of the ulna the junction of the middle and distal one third. Alignment remains similar. Within the wrist, there is evidence for a scapholunate ligamentous disruption with an instability pattern. There is a lunate rotation. There is capitate subsidence. IMPRESSION: 1. Progressive healing of the ulnar fracture located the junction of middle distal one third 2. Osteopenia 3. Evidence for a radius scaphoid ligamentous disruption with a carpal instability pattern Electronically signed by: Felton Barragan M.D. 02/05/2017 2:18 PM Dictated Date/Time: 02/05/2017 2:16 PM
== END | disposition home or self-care (01) ==
LOC: C.RDSM 13:02
PROVIDERS: ATTEND Physician Assistant
DX: S52.234D Nondisplaced oblique fracture of shaft of right ulna, subsequent encounter for closed fracture with routine healing (principal); M85.831 Other specified disorders of bone density and structure, right forearm; X58.XXXD Exposure to other specified factors, subsequent encounter

== ENCOUNTER → 2017-03-04 | Outpatient (CLI) | payer BC ==
[2017-03-04 17:15] LABS: BLOOD UREA NITROGEN 13 mg/dl (7-18); CALCIUM 9.1 mg/dl (8.5-10.1); CARBON DIOXIDE 26 mmol/L (21-32); CHLORIDE 98 mmol/L (98-107); GLUCOSE 211 mg/dl (70-99); POTASSIUM 4.2 mmol/L (3.5-5.1); SODIUM 134 mmol/L (136-145)
[2017-03-04 17:29] LABS: ALB/GLOB RATIO 1.1 (0.9-2); ALKALINE PHOSPHATASE 104 U/L (45-117); ALT/SGPT 21 U/L (12-78); AST/SGOT 15 U/L (15-37); BUN/CREATININE RATIO 14.1 (10-20); CHOLESTEROL 237 mg/dl (0-200); CHOLESTEROL/HDL RATIO 2.8; CREATININE 0.92 mg/dl (0.60-1.20); HDL CHOLESTEROL 84 mg/dl; LDL CHOLESTEROL CALCULATED 128 mg/dl; THYROID STIMULATING HORMONE 0.685 uIu/ml (0.300-4.500); TRIGLYCERIDES 126 mg/dl (0-150); VERY LOW DENSITY LIPOPROT CALC 25 mg/dl
[2017-03-04 18:33] LABS: ESTIMATED AVERAGE GLUCOSE 146 mg/dl; HA1C FLAG Normal (Normal)
== END | disposition home or self-care (01) ==
LOC: C.LABBFT 13:41
PROVIDERS: ATTEND Internal Medicine
DX: E11.9 Type 2 diabetes mellitus without complications (principal); E78.5 Hyperlipidemia, unspecified

== ENCOUNTER → 2017-03-10 | Outpatient (CLI) | payer BC ==
--- NOTE | 2017-03-10 12:29 | DIAGNOSTIC IMAGING REPORT ---
RIGHT HAND MIN 3 VIEWS ROUTINE CLINICAL HISTORY: 77 years-old Female presenting with arthralgia. TECHNIQUE: Frontal, oblique, and lateral views of the right hand were obtained. COMPARISON: 08/11/2012. FINDINGS: Osteopenia. Advanced degenerative change of the first metacarpal phalangeal joint with osteophytosis and subluxation. Advanced degenerative change of the distal interphalangeal joints of nearly every finger, most severe in the second and third fingers. Joint space loss also suspected at the second metacarpophalangeal joint. Radiocarpal and intercarpal articulations preserved. Chondrocalcinosis of the triangle fibrocartilage may be present. No acute fracture. No soft tissue calcification. IMPRESSION: Findings most consistent with advanced osteoarthritis affecting the first and second metacarpophalangeal joints and distal interphalangeal joints as above. This is not significantly changed since the prior exam in 2012. Osteopenia. Electronically signed by: Stepan Marquez M.D. 03/10/2017 12:28 PM Dictated Date/Time: 03/10/2017 12:25 PM
--- NOTE | 2017-03-10 12:30 | DIAGNOSTIC IMAGING REPORT ---
LEFT HAND 3 VIEWS HISTORY: M25.50 Arthralgia of multiple [id number] Positive VIPIN (antinuclear COMPARISON: None. FINDINGS: Moderate to severe cartilage space narrowing seen throughout the joints of the hand and wrist. This is most pronounced at the first carpometacarpal joint, first MCP joint, and DIP joints. Mild soft tissue swelling at the joints of the hand. There is an erosive arthritis component to the DIP joint of the second through fifth digits. Large marginal osteophytes within the DIP joints of the hands. Chondrocalcinosis within the wrist. No radiopaque foreign bodies. IMPRESSION: 1. Moderate to severe osteoarthritis seen throughout the left hand and wrist with an erosive component at the DIP joints. 2. Chondrocalcinosis. Electronically signed by: Caleb Rizo M.D. 03/10/2017 12:29 PM Dictated Date/Time: 03/10/2017 12:22 PM
--- NOTE | 2017-03-10 12:35 | DIAGNOSTIC IMAGING REPORT ---
LEFT KNEE 1 OR 2 VIEWS ROUTINE CLINICAL HISTORY: 77 years-old Female presenting with positive VIPIN, arthralgia multiple sites. TECHNIQUE: Frontal and lateral views of the left knee were obtained. COMPARISON: 06/16/2016. FINDINGS: Slight interval increase in medial compartment joint space loss. Tricompartmental degenerative change most severe in the medial compartment with osteophytosis, subchondral sclerosis, and joint space loss. Normal osteophytosis in the patellofemoral compartment and more pronounced osteophytosis and subchondral sclerosis evident in the lateral compartment. No acute fracture. Small knee joint effusion may be present. Atherosclerosis. IMPRESSION: Findings most consistent with osteoarthritis of the knee most severe in the medial compartment. Electronically signed by: Stepan Marquez M.D. 03/10/2017 12:33 PM Dictated Date/Time: 03/10/2017 12:32 PM
[2017-03-10 13:31] LABS: RHEUMATOID FACTOR < 10.0 U/mL (0-15); TOTAL IRON BINDING CAPACITY 343 mcg/dl (250-450)
[2017-03-15 15:39] LABS: ANTI-CENTROMERE AB <1.0 NEG AI (<1.0 NEG); ANTI-SS-A <1.0 NEG AI (<1.0 NEG); ANTI-SS-B <1.0 NEG AI (<1.0 NEG); DNA ds CRITHIDIA NEGATIVE (NEGATIVE); Sm Antibody <1.0 NEG AI (<1.0 NEG)
== END | disposition home or self-care (01) ==
LOC: C.RAD1850 11:41
PROVIDERS: ATTEND Internal Medicine Rheumatology
DX: M25.50 Pain in unspecified joint (principal); R76.8 Other specified abnormal immunological findings in serum; M19.042 Primary osteoarthritis, left hand; M19.032 Primary osteoarthritis, left wrist; M11.242 Other chondrocalcinosis, left hand; M85.841 Other specified disorders of bone density and structure, right hand

== ENCOUNTER → 2017-03-26 | Outpatient (CLI) | payer BC | END | disposition home or self-care (01) | LOC: C.RDSM 11:47 | PROVIDERS: ATTEND Physical Medicine & Rehabilitation Sports Medicine | DX: M25.512 Pain in left shoulder (principal) ==

== ENCOUNTER → 2017-05-19 | Outpatient (CLI) | payer BC ==
[2017-05-19 17:18] LABS: URINE APPEARANCE CLEAR (CLEAR); URINE BILIRUBIN NEG (NEG); URINE COLOR YELLOW; URINE NITRITE NEG (NEG); URINE PH 5.5 (4.5-7.5); URINE SPECIFIC GRAVITY 1.026 (1.000-1.030); UROBILINOGEN NEG (NEG)
[2017-05-19 17:22] LABS: MANUAL MICROSCOPIC REQUIRED? NO; REVIEW REQ? NO
== END | disposition home or self-care (01) ==
LOC: C.LABSPEC 09:54
PROVIDERS: ATTEND Physician Assistant Medical
DX: R39.9 Unspecified symptoms and signs involving the genitourinary system (principal)

== ENCOUNTER → 2017-06-10 | Outpatient (CLI) | payer BC ==
[~2017-06-10] MED LIST changes: +PANT1TAB3 PO; -PANT1TAB48 PO
[2017-06-10 13:08] LABS: URINE APPEARANCE CLEAR (CLEAR); URINE BILIRUBIN NEG (NEG); URINE COLOR YELLOW; URINE NITRITE NEG (NEG); URINE SPECIFIC GRAVITY 1.021 (1.000-1.030); UROBILINOGEN NEG (NEG)
[2017-06-10 13:11] LABS: HEMATOCRIT 41.8 % (37-47); MEAN CELL VOLUME 96.3 fL (80-100); MEAN CORPUSCULAR HEMOGLOBIN 31.1 pg (25-34); MEAN CORPUSCULAR HGB CONC 32.3 g/dl (32-36); PLATELET COUNT 206 K/uL (130-400); RED BLOOD COUNT 4.34 M/uL (4.2-5.4); WHITE BLOOD COUNT 6.94 K/uL (4.8-10.8)
[2017-06-10 13:15] LABS: ALT/SGPT 21 U/L (12-78); BLOOD UREA NITROGEN 14 mg/dl (7-18); BUN/CREATININE RATIO 17.4 (10-20); CALCIUM 9.4 mg/dl (8.5-10.1); CARBON DIOXIDE 27 mmol/L (21-32); CHLORIDE 101 mmol/L (98-107); CREATININE 0.78 mg/dl (0.60-1.20); GLUCOSE 165 mg/dl (70-99); POTASSIUM 3.8 mmol/L (3.5-5.1); SODIUM 136 mmol/L (136-145)
[2017-06-10 13:22] LABS: MANUAL MICROSCOPIC REQUIRED? NO; REVIEW REQ? NO
[2017-06-10 13:25] LABS: ALB/GLOB RATIO 1.4 (0.9-2); ALKALINE PHOSPHATASE 88 U/L (45-117); AST/SGOT 16 U/L (15-37)
== END | disposition home or self-care (01) ==
LOC: C.LABBFT 11:00
PROVIDERS: ATTEND Physician Assistant Medical
DX: R41.0 Disorientation, unspecified (principal)

== ENCOUNTER 2017-08-23 17:00 | Inpatient (IN) | payer BC, OTHER ==
[~2017-08-23] VITALS: Ht 154.9 cm; Wt 70.4 kg
[~2017-08-23 17:00] MED LIST changes: -PANT1TAB3 PO; -PRAM0.754 PO; +PRAM0.757 PO
--- NOTE | 2017-08-23 17:52 | EMERGENCY ROOM VISIT NOTE ---
History Report prepared by Natalya: Magalys Harris Under the Supervision of: Dr. George Freire M.D. First contact with patient: 17:24 Chief Complaint: WEAKNESS Stated Complaint: AMS History of Present Illness The patient is a 77 year old female who presents to the Emergency Room with complaints of a persistent generalized weakness that began 2 days ago. The patient's daughter states that 2 days ago, the patient began vomiting, experiencing diarrhea, some coughing, and slightly confused. One day ago, the patient was able to walk around with her walker as needed. The patient lives at home with her , who was diagnosed with the flu earlier today. He reports that she normally has "bad mornings", meaning that she is extremely weak when she first wakes up but feels progressively better throughout the day. He notes that this morning he was trying to help her stand up, but she was so weak that she slid towards the floor. The patient's granddaughter's had to come to help pick her up because her was too weak. Her at home nurse states that the patient has fallen 3 times in the past 2 weeks, noting that it mostly has been because her knee 'gave up'. The patient's daughter states that the patient normally sleeps through most of the day and is incontinent. She takes water pills as needed, but is not on any blood thinners. Source of History: patient Onset: 2 days ago Position: other (generalized) Quality: other (generalized weakness) Timing: other (persistent) Associated Symptoms: + cough (some coughing), + vomiting, + diarrhea Note: Associated symptoms include: slightly confused. Review of Systems See HPI for pertinent positives and negatives. A total of ten systems were reviewed and were otherwise negative. Past Medical & Surgical Medical Problems: (1) Acute exacerbation of chronic low back pain (2) Acute exacerbation of chronic low back pain (3) Altered mental status (4) Asthma, Unspecified (5) Chronic low back pain (6) Confusion (7) Factor V Leiden (8) Fall (9) Fever (10) History of spinal stenosis (11) Hypertension Nos (12) Influenza A (13) Low back pain (14) Low back pain (15) Lupus (16) Mixed Hyperlipidemia (17) Narcotic withdrawal (18) Obstructive Sleep Apnea (Adult) (Pediatric) (19) Opioid withdrawal (20) Pneumonia (21) Reflux Esophagitis (22) Restless leg syndrome (23) Shortness of breath (24) Spinal stenosis (25) Stroke (26) Unspecified Urinary Incontinence (27) Weakness Surgical Problems: (1) H/O cataract extraction (2) History of back surgery Family History No pertinent family history Social History Smoking Status: Never Smoker Alcohol Use: none Drug Use: none Marital Status: Housing Status: lives with family, unknown Occupation Status: retired Current/Historical Medications Scheduled Albuterol Hfa (Ventolin Hfa), 2 PUFFS INH QID Albuterol Sulf (Proventil 0.083% 2.5MG/3ML), 2.5 MG INH QID Calcium Carbonate (Calcium), 600 MG PO BID Cholecalciferol (Vitamin D), 1 TAB PO QAM Duloxetine HCl (Duloxetine HCl), 30 MG PO DAILY Gabapentin (Gabapentin), 100 MG PO UD Multivitamin (Multivitamin), 1 TAB PO QAM Pantoprazole (Protonix), 40 MG PO BID Pramipexole Dihydrochloride (Pramipexole Dihydrochlori), 0.75 MG PO QPM Prednisone (Prednisone), 7.5 MG PO QAM Verapamil HCl (Verapamil HCl ER), 240 MG PO QPM Zoledronic Acid (Reclast), 5 MG INJ UD Scheduled PRN Diazepam (Valium), 5 MG PO TID PRN for Muscle Spasms Furosemide (Lasix), 20 MG PO DAILY PRN for EDEMA Hydrocodone/Acetaminophen 10MG/325MG ([place] 10MG/325MG), 1 TAB PO QID PRN for Pain Allergies Coded Allergies: Penicillins (Verified Allergy, Intermediate, HIVES, 11/05/16) Adhesives (Verified Allergy, Unknown, SKIN REDNESS AND IRRITATION, 11/05/16 ) Latex (Verified Allergy, Unknown, PATIENT UNSURE, 11/05/16) Tolterodine (Verified Adverse Reaction, Intermediate, GI SYMPTOMS, 11/05/16 ) Nausea/vomiting Physical Exam Vital Signs Date Time Temp Pulse Resp B/P (MAP) Pulse Ox O2 Delivery O2 Flow Rate FiO2 08/23/17 22:14 74 18 138/70 93 Room Air 08/23/17 21:26 76 08/23/17 20:13 84 18 131/77 94 Room Air 08/23/17 18:46 84 18 160/94 95 Room Air 08/23/17 17:29 87 08/23/17 17:00 38.0 87 18 145/83 93 Room Air 08/23/17 17:00 93 Room Air Physical Exam GENERAL: Awake, alert, fatigued-appearing, in no distress. Alert to self and place. HENT: Normocephalic, atraumatic. Oropharynx with dry mucous membranes but otherwise unremarkable. EYES: Normal conjunctiva. Sclera non-icteric. NECK: Supple. No nuchal rigidity. FROM. No JVD. RESPIRATORY: Clear to auscultation. CARDIAC: Regular rate, normal rhythm. Extremities warm and well perfused. Pulses equal. ABDOMEN: Soft, non-distended. No tenderness to palpation. No rebound or guarding. No masses. RECTAL: Deferred. MUSCULOSKELETAL: Chest examination reveals no tenderness. The back is symmetrical on inspection without obvious abnormality. There is no CVA tenderness to palpation. No joint edema. LOWER EXTREMITIES: Calves are equal size bilaterally and non-tender. No edema. No discoloration. NEURO: 4/5 strength in all extremities throughout. Sensory intact. SKIN: No rash or jaundice noted. Medical Decision & Procedures ER Provider Diagnostic Interpretation: Radiology results as stated below per my review and radiologist interpretation: CHEST ONE VIEW PORTABLE CLINICAL HISTORY: Fever, sepsis COMPARISON STUDY: July 31, 2016 FINDINGS: The heart is normal in size. There is a retrocardiac opacity consistent with a hiatal hernia. There is no lobar consolidation. There is no failure. There is bibasal atelectasis. Advanced arthritic changes are present within the shoulders. There is evidence for chronic right shoulder rotator cuff tear[ IMPRESSION: No active disease in the chest. Mild basilar atelectasis Electronically signed by: Felton Barragan M.D. 08/23/2017 6:27 PM Dictated Date/Time: 08/23/2017 6:[address] CT DOSE: 537.48 mGy.cm HISTORY: Altered mental status TECHNIQUE: Multiaxial CT images of the head were performed without the use of intravenous contrast. Automated exposure control was utilized for this study. A dose lowering technique was utilized adhering to the principles of ALARA. Comparison: Head CT 12/16/2014. Findings: The paranasal sinuses and mastoid air cells are clear. There is a punctate density within the central cande. This may have been present on the prior study but is likely obscured by artifact. Therefore, this raises the possibility of a tiny focus of pontine hemorrhage versus calcification. Mild atrophy and microvascular ischemic changes are again noted. Old punctate lacunar infarct within the left basal ganglia remains unchanged. No mass, midline shift, or acute territorial infarct. Impression: There is a punctate focus of increased density within the central cande as described above. This raises the possibility of a tiny focus of pontine hemorrhage versus a small calcification. Therefore, [address] follow-up is recommended to ensure stability. Electronically signed by: Caleb Rizo M.D. 08/23/2017 7:09 PM Dictated Date/Time: 08/23/2017 6:59 PM Laboratory Results 08/23/17 18:15 Red Blood Count 4.60, Mean Corpuscular Volume 91.7, Mean Corpuscular Hemoglobin 31.5, Mean Corpuscular Hemoglobin Concent 34.4, Mean Platelet Volume 9.3, Neutrophils (%) (Auto) 71.3, Lymphocytes (%) (Auto) 13.7, Monocytes (%) (Auto) 14.2, Eosinophils (%) (Auto) 0.2, Basophils (%) (Auto) 0.2, Neutrophils # (Auto ) 3.27, Lymphocytes # (Auto) 0.63, Monocytes # (Auto) 0.65, Eosinophils # (Auto ) 0.01, Basophils # (Auto) 0.01 08/23/17 18:15 Test 08/23/17 18:15 08/23/17 18:17 08/23/17 18:42 08/23/17 19:09 White Blood Count 4.59 K/uL (4.8-10.8) Red Blood Count 4.60 M/uL (4.2-5.4) Hemoglobin 14.5 g/dL (12.0-16.0) Hematocrit 42.2 % (37-47) Mean Corpuscular Volume 91.7 fL (80-100) Mean Corpuscular Hemoglobin 31.5 pg (25-34) Mean Corpuscular Hemoglobin Concent 34.4 g/dl (32-36) Platelet Count 182 K/uL (130-400) Mean Platelet Volume 9.3 fL (7.4-10.4) Neutrophils (%) (Auto) 71.3 % Lymphocytes (%) (Auto) 13.7 % Monocytes (%) (Auto) 14.2 % Eosinophils (%) (Auto) 0.2 % Basophils (%) (Auto) 0.2 % Neutrophils # (Auto) 3.27 K/uL (1.4-6.5) Lymphocytes # (Auto) 0.63 K/uL (1.2-3.4) Monocytes # (Auto) 0.65 K/uL (0.11-0.59) Eosinophils # (Auto) 0.01 K/uL (0-0.5) Basophils # (Auto) 0.01 K/uL (0-0.2) RDW Standard Deviation 48.4 fL (36.4-46.3) RDW Coefficient of Variation 14.3 % (11.5-14.5) Immature Granulocyte % (Auto) 0.4 % Immature Granulocyte # (Auto) 0.02 K/uL (0.00-0.02) Anion Gap 11.0 mmol/L (3-11) Est Creatinine Clear Calc Drug Dose 59.7 ml/min Estimated GFR () 96.6 Estimated GFR (Non- 83.4 BUN/Creatinine Ratio 18.9 (10-20) Lactic Acid Level 0.9 mmol/L (0.4-2.0) Calcium Level 8.9 mg/dl (8.5-10.1) Total Bilirubin 0.7 mg/dl (0.2-1) Direct Bilirubin 0.2 mg/dl (0-0.2) Aspartate Amino Transf (AST/SGOT) 24 U/L (15-37) Alanine Aminotransferase (ALT/SGPT) 22 U/L (12-78) Alkaline Phosphatase 71 U/L (45-117) Troponin I < 0.015 ng/ml (0-0.045) Total Protein 7.6 gm/dl (6.4-8.2) Albumin 3.8 gm/dl (3.4-5.0) Lipase 56 U/L (73-393) Influenza Type A Antigen POS for Influ A (NEG) Influenza Type B Antigen Neg for Influ B (NEG) Urine Color DK YELLOW Urine Appearance CLEAR (CLEAR) Urine pH 7.0 (4.5-7.5) Urine Specific [place] 1.020 (1.000-1.030) Urine Protein NEG (NEG) Urine Glucose (UA) NEG (NEG) Urine Ketones TRACE (NEG) Urine Occult Blood NEG (NEG) Urine Nitrite NEG (NEG) Urine Bilirubin NEG (NEG) Urine Urobilinogen NEG (NEG) Urine Leukocyte Esterase NEG (NEG) Venous Blood pH 7.46 (7.36-7.41) Venous Blood Partial Pressure CO2 36 mmHg (38.0-50.0) Venous Blood Partial Pressure O2 62 mmHg Venous Blood HCO3 25 mmol/L Venous Blood Oxygen Saturation 90.8 % Venous Blood Base Excess 1.8 mEq/L Laboratory results reviewed by me Medications Administered Medications (Trade) Dose Ordered Sig/Bruce Route Start Time Stop Time Status Last Admin Dose Admin Sodium Chloride 500 ml @ 999 mls/hr Q31M STAT IV 08/23/17 17:56 08/23/17 18:26 DC 08/23/17 18:20 999 MLS/HR Acetaminophen (Tylenol Tab) 1,000 mg NOW STAT PO 08/23/17 17:58 08/23/17 18:00 DC 08/23/17 18:20 1,000 MG Sodium Chloride 1,000 ml @ 999 mls/hr Q1H1M STAT IV 08/23/17 19:45 08/23/17 20:45 DC 08/23/17 20:11 999 MLS/HR Oseltamivir Phosphate (Tamiflu Cap) 75 mg NOW STAT PO 08/23/17 19:45 08/23/17 19:47 DC 08/23/17 20:10 75 MG Miscellaneous Information (Nursing Verbal Med Order) 1 ea ONE ONCE N/A 08/23/17 20:45 08/23/17 20:46 DC 08/23/17 20:40 1 EA Acetaminophen/ Hydrocodone Bitart ([place] 10/325 Tab) 1 tab STK-MED ONCE .ROUTE 08/23/17 20:34 08/23/17 20:35 DC 08/23/17 20:36 1 TAB ECG Per My Interpretation Indication: weakness Rate (beats per minute): 89 Rhythm: normal sinus Findings: T-wave inversion, left axis deviation, other (precordial T-wave inversion similar to 12/16/14) Comparison ECG Date: precordial T-wave inversion similar to 12/16/14 ED Course 172: The patient was evaluated in room B7. A complete history and physical exam was performed. 1905: Discussed the patient's case with Dr. Larry Moses - neurology, who questioned calcification that might have been there before, but a punctuate hemorrhage appear similar. He suggested that we repeat the CT scan in 6 hours and that MRI will not help. 2041: I reevaluated the patient, who was resting comfortably. I updated her family on test findings. They verbalized complete understanding. 2054: I discussed the patient with Dr. Josué Chapman, [facility] [place] - He will evaluate the patient for further treatment. 2058: I reevaluated the patient, who was still resting. I updated the family on test findings. We discussed the treatment plan and they verbalized complete agreement. Medical Decision I reviewed the patient's past medical history, medications, and the nursing notes as described above. Differential diagnosis: Etiologies such as metabolic, infection, hypo/hyperglycemia, electrolyte abnormalities, cardiac sources, intracerebral event, toxicologic, neurologic, as well as others were entertained. The patient is a 69-year-old woman who presents emergency Department with generalized weakness worsening over the course of today the setting of cough and congestion in the setting of being exposed to her 's influenza. On arrival the patient is fatigued and uncomfortable but in no acute distress. She is febrile to 38.0 signs otherwise stable. WBC 4.59 c/w viral illness. Influenza A positive. Labs otherwise unremarkable. CXR negative for PNA. CT head negative for acute findings although, I d/w Dr. Rizo, radiologist, who explained that pontine finding, while likely calcification could be c/w punctate hemorrhage and recommends repeat CT head to assess for interval change. Patient feeling improved after IVF and demonstrating no gross focal neurologist deficits. CT findings unlikely to be hemorrhage given patient's clinical presentation. Considering the patient's age, and profound weakness on arrival in the setting of influenza it is reasonable to consider admission in this patient. I discussed this with the family and patient and they prefer admission at this time. Dr. Chapman paged and is aware and will evaluate the patient for admission for further management. Medication Reconcilliation Current Medication List: was personally reviewed by me Blood Pressure Screening Patient's blood pressure: Normal blood pressure Blood pressure disposition: Did not require urgent referral Consults Time Called: 1905 Consulting Physician: Dr. Rizo, radiology Returned Call: 1906 Discussed the patient's case with Dr. Rizo, radiologist, pontine finding likely calcification but punctuate hemorrhage could appear similar. MRI unlikely helpful. Recs for repeat CT in 6 hours. Additional Consults: Time Called: 2054 Consulted Physician: KARMEN Borrego Returned Call: 2054 Additional Comments: KARMEN Borrego hospitalist paged - He will evaluate the patient for further treatment. Impression Primary Impression: Influenza A Additional Impressions: Dehydration Generalized weakness Scribe Attestation The scribe's documentation has been prepared under my direction and personally reviewed by me in its entirety. I confirm that the note above accurately reflects all work, treatment, procedures, and medical decision making performed by me. Departure Information Dispostion Being Evaluated By Hospitalist Referrals Manuel Crum M.D. (PCP) Forms HOME CARE DOCUMENTATION FORM, IMPORTANT VISIT INFORMATION Patient Instructions My [facility] Problem Qualifiers
[2017-08-23] MEDS ORDERED: SODIUM CHLORIDE 0.9% 500ML 500 ML IV STA (17:56)
[2017-08-23] MEDS ORDERED: ACETAMINOPHEN 500 MG TAB PO STA (17:58)
--- NOTE | 2017-08-23 18:28 | DIAGNOSTIC IMAGING REPORT ---
CHEST ONE VIEW PORTABLE CLINICAL HISTORY: Fever, sepsis COMPARISON STUDY: July 31, 2016 FINDINGS: The heart is normal in size. There is a retrocardiac opacity consistent with a hiatal hernia. There is no lobar consolidation. There is no failure. There is bibasal atelectasis. Advanced arthritic changes are present within the shoulders. There is evidence for chronic right shoulder rotator cuff tear[ IMPRESSION: No active disease in the chest. Mild basilar atelectasis Electronically signed by: Felton Barragan M.D. 08/23/2017 6:27 PM Dictated Date/Time: 08/23/2017 6:26 PM
[2017-08-23 18:40] LABS: BASO % 0.2 %; BASO ABS # 0.01 K/uL (0-0.2); EOS % 0.2 %; EOS ABS # 0.01 K/uL (0-0.5); HEMATOCRIT 42.2 % (37-47); HEMOGLOBIN 14.5 g/dL (12.0-16.0); IG# 0.02 K/uL (0.00-0.02); LYMPH % 13.7 %; LYMPH ABS # 0.63 K/uL (1.2-3.4); MEAN CELL VOLUME 91.7 fL (80-100); MEAN CORPUSCULAR HEMOGLOBIN 31.5 pg (25-34); MEAN CORPUSCULAR HGB CONC 34.4 g/dl (32-36); MEAN PLATELET VOLUME 9.3 fL (7.4-10.4); MONO % 14.2 %; MONO ABS # 0.65 K/uL (0.11-0.59); NEUT % 71.3 %; NEUT ABS # 3.27 K/uL (1.4-6.5); PLATELET COUNT 182 K/uL (130-400); RED CELL DISTRIBUTION WIDTH CV 14.3 % (11.5-14.5); RED CELL DISTRIBUTION WIDTH SD 48.4 fL (36.4-46.3); WHITE BLOOD COUNT 4.59 K/uL (4.8-10.8)
[2017-08-23] MEDS ORDERED: PANT1TAB3 PO (18:55)
[2017-08-23 19:03] LABS: ALBUMIN 3.8 gm/dl (3.4-5.0); ALT/SGPT 22 U/L (12-78); AST/SGOT 24 U/L (15-37); BLOOD UREA NITROGEN 13 mg/dl (7-18); CALCIUM 8.9 mg/dl (8.5-10.1); CARBON DIOXIDE 25 mmol/L (21-32); CREATININE 0.69 mg/dl (0.60-1.20); GLUCOSE 109 mg/dl (70-99); LIPASE 56 U/L (73-393); POTASSIUM 3.5 mmol/L (3.5-5.1); SODIUM 133 mmol/L (136-145)
[2017-08-23 19:08] LABS: ALKALINE PHOSPHATASE 71 U/L (45-117); TOTAL PROTEIN 7.6 gm/dl (6.4-8.2)
--- NOTE | 2017-08-23 19:11 | DIAGNOSTIC IMAGING REPORT ---
HEAD CT NONCONTRAST CT DOSE: 537.48 mGy.cm HISTORY: Altered mental status TECHNIQUE: Multiaxial CT images of the head were performed without the use of intravenous contrast. Automated exposure control was utilized for this study. A dose lowering technique was utilized adhering to the principles of ALARA. Comparison: Head CT 12/16/2014. Findings: The paranasal sinuses and mastoid air cells are clear. There is a punctate density within the central cande. This may have been present on the prior study but is likely obscured by artifact. Therefore, this raises the possibility of a tiny focus of pontine hemorrhage versus calcification. Mild atrophy and microvascular ischemic changes are again noted. Old punctate lacunar infarct within the left basal ganglia remains unchanged. No mass, midline shift, or acute territorial infarct. Impression: There is a punctate focus of increased density within the central cande as described above. This raises the possibility of a tiny focus of pontine hemorrhage versus a small calcification. Therefore, [address] follow-up is recommended to ensure stability. Electronically signed by: Caleb Rizo M.D. 08/23/2017 7:09 PM Dictated Date/Time: 08/23/2017 6:59 PM
[2017-08-23 19:41] LABS: INFLUENZA B ANTIGEN Neg for Influ B (NEG)
[2017-08-23] MEDS ORDERED: SODIUM CHLORIDE 0.9% 1000ML 1,000 ML IV STA (19:45)
[2017-08-23] MEDS ORDERED: OSELTAMIVIR PHOSPHATE 75 MG CAP PO STA (19:45)
[2017-08-23] MEDS ORDERED: ZOLE5INJ INJ (19:56)
[2017-08-23] MEDS ORDERED: FURO-85 PO (19:56)
[2017-08-23] MEDS ORDERED: CYM30 PO (19:56)
[2017-08-23] MEDS ORDERED: HYDR-4079 PO (19:56)
[2017-08-23] MEDS ORDERED: NRN100 PO (19:56)
[2017-08-23] MEDS ORDERED: HYDROCODONE/ACETAMI 10/325 TAB ONE (20:34)
[2017-08-23] MEDS ORDERED: NURSING VERBAL MED ORDER ONE (20:45)
[2017-08-23] MEDS ORDERED: GABAPENTIN 100 MG CAP PO SCH (21:30)
[2017-08-23] MEDS ORDERED: ALUMINUM/MAGNESIUM/SIMETH (MAALOX MAX) 30 ML UDC PO PRN (22:15)
[2017-08-23] MEDS ORDERED: MAGNESIUM HYDROXIDE SUSP 30 ML UDC PO PRN (22:15)
[2017-08-23] MEDS ORDERED: ONDANSETRON INJ 2 MG/ML 2 ML VIAL IV PRN (22:15)
[2017-08-23] MEDS ORDERED: POLYETHYLENE (MIRALAX) 17 GM PACK PO PRN (22:15)
--- NOTE | 2017-08-23 22:17 | History and Physical ---
History & Physical Date & Time of Service: Aug 23, 2017 at 21:28 Chief Complaint: AMS Primary Care Physician: Manuel Crum M.D. History of Present Illness Source: patient, family, hospital records 77 y/o F Hx HTN, HPL, Factor V Leiden mutation, TIA, RA, chronic pain. Presents with nausea, vomiting, diarrhea, falls, confusion and cough. The diarrhea and vomiting had occurred one day prior and have resolved. She was found on the floor today next to her bed where she had fallen and could not get up. She could not recall suffering any head trauma. This is reportedly her 4th fall in the past 2 weeks. Her daughter also states that during the same time period she appeared to be exhibiting periods of confusion and perhaps cognitive decline. The pt was febrile on arrival to the ER. Initial labs are notable for a positive rapid flu. She lives with her who had been diagnosed with flu a few days earlier. Her daughter is present at bedside to provide the most of the preceding information as she is a poor historian. A CT head was obtained. There is a question of a punctate pontine hemorrhage vs an area of calcification. Past Medical/Surgical History 1) HTN 2) HPL 3) Impaired gait 4) Factor V Leiden mutation - not on anticoagulation therapy 5) History of TIA 6) Possible cognitive impairment 7) RA 8) Chronic pain Surgical 1) Lumbar surgery 2) Hysterectomy 3) Carpal tunnel release 4) Lumbar surgery 5) Rotator cuff surgery Family History No pertinent family history Social History Smoking Status: Never Smoker Drug Use: none Marital Status: Housing status: lives with family Occupational Status: retired Immunizations History of Influenza Vaccine: Yes History of Tetanus Vaccine?: Unknown History of Pneumococcal: Unknown History of Hepatitis B Vaccine: Unknown Multi-Drug Resistant Organisms History of MDRO: No Allergies Coded Allergies: Penicillins (Verified Allergy, Intermediate, HIVES, 11/05/16) Adhesives (Verified Allergy, Unknown, SKIN REDNESS AND IRRITATION, 11/05/16 ) Latex (Verified Allergy, Unknown, PATIENT UNSURE, 11/05/16) Tolterodine (Verified Adverse Reaction, Intermediate, GI SYMPTOMS, 11/05/16 ) Nausea/vomiting Home Medications Scheduled Albuterol Hfa (Ventolin Hfa), 2 PUFFS INH QID Albuterol Sulf (Proventil 0.083% 2.5MG/3ML), 2.5 MG INH QID Calcium Carbonate (Calcium), 600 MG PO BID Cholecalciferol (Vitamin D), 1 TAB PO QAM Duloxetine HCl (Duloxetine HCl), 30 MG PO DAILY Gabapentin (Gabapentin), 100 MG PO UD Multivitamin (Multivitamin), 1 TAB PO QAM Pantoprazole (Protonix), 40 MG PO BID Pramipexole Dihydrochloride (Pramipexole Dihydrochlori), 0.75 MG PO QPM Prednisone (Prednisone), 7.5 MG PO QAM Verapamil HCl (Verapamil HCl ER), 240 MG PO QPM Zoledronic Acid (Reclast), 5 MG INJ UD Scheduled PRN Diazepam (Valium), 5 MG PO TID PRN for Muscle Spasms Furosemide (Lasix), 20 MG PO DAILY PRN for EDEMA Hydrocodone/Acetaminophen 10MG/325MG (Fannin 10MG/325MG), 1 TAB PO QID PRN for Pain Review of Systems Constitutional: + fever, + weakness, No chills, No sweats Eyes: No worsening of vision ENT: No hearing loss, No nasal symptoms Respiratory: + cough, No sputum, No shortness of breath, No dyspnea on exertion Cardiovascular: No chest pain, No orthopnea, No PND Abdomen: + nausea, + vomiting, + diarrhea (resolved), No pain Genitourinary - Female: No dysuria, No urinary frequency, No urinary urgency Neurologic: + weakness, + balance problems, + problem reported (Cognitive impairment - intermittent confusion over the past 2-3 weeks), No memory loss, No paralysis Psychiatric: No depression symptoms Endocrine: No fatigue Hematologic / Lymphatic: No abnormal bleeding/bruising Integumentary: No rash Allergic / Immunologic: No environmental allergies Physical Exam Vital Signs Date Time Temp Pulse Resp B/P (MAP) Pulse Ox O2 Delivery O2 Flow Rate FiO2 08/23/17 21:26 76 08/23/17 20:13 84 18 131/77 94 Room Air 08/23/17 18:46 84 18 160/94 95 Room Air 08/23/17 17:29 87 08/23/17 17:00 38.0 87 18 145/83 93 Room Air 08/23/17 17:00 93 Room Air General Appearance: WD/WN, + pertinent finding (Overweight, elderly female - no distress - AAO x 2) Head: normocephalic, atraumatic Eyes: normal inspection ENT: normal ENT inspection, pharynx normal, + pertinent finding (dry mucosal membranes) Neck: supple, no JVD Respiratory/Chest: chest non-tender, lungs clear, normal breath sounds Cardiovascular: regular rate, rhythm, no edema, no gallop Abdomen/GI: normal bowel sounds, non tender, soft Back: normal inspection, no CVA tenderness Extremities/Musculoskelatal: normal inspection, no calf tenderness, normal capillary refill, no pedal edema Neurologic/Psych: education program manager II-XII nml as tested, no motor/sensory deficits, alert Skin: normal color, warm/dry Diagnostics Laboratory Results Results Past 24 Hours Test 08/23/17 18:15 08/23/17 18:17 08/23/17 18:42 08/23/17 19:09 Range/Units White Blood Count 4.59 4.8-10.8 K/uL Red Blood Count 4.60 4.2-5.4 M/uL Hemoglobin 14.5 12.0-16.0 g/dL Hematocrit 42.2 37-47 % Mean Corpuscular Volume 91.7 80-100 fL Mean Corpuscular Hemoglobin 31.5 25-34 pg Mean Corpuscular Hemoglobin Concent 34.4 32-36 g/dl Platelet Count 182 130-400 K/uL Mean Platelet Volume 9.3 7.4-10.4 fL Neutrophils (%) (Auto) 71.3 % Lymphocytes (%) (Auto) 13.7 % Monocytes (%) (Auto) 14.2 % Eosinophils (%) (Auto) 0.2 % Basophils (%) (Auto) 0.2 % Neutrophils # (Auto) 3.27 1.4-6.5 K/uL Lymphocytes # (Auto) 0.63 1.2-3.4 K/uL Monocytes # (Auto) 0.65 0.11-0.59 K/uL Eosinophils # (Auto) 0.01 0-0.5 K/uL Basophils # (Auto) 0.01 0-0.2 K/uL RDW Standard Deviation 48.4 36.4-46.3 fL RDW Coefficient of Variation 14.3 11.5-14.5 % Immature Granulocyte % (Auto) 0.4 % Immature Granulocyte # (Auto) 0.02 0.00-0.02 K/uL Sodium Level 133 136-145 mmol/L Potassium Level 3.5 3.5-5.1 mmol/L Chloride Level 97 98-107 mmol/L Carbon Dioxide Level 25 21-32 mmol/L Anion Gap 11.0 3-11 mmol/L Blood Urea Nitrogen 13 7-18 mg/dl Creatinine 0.69 0.60-1.20 mg/dl Est Creatinine Clear Calc Drug Dose 59.7 ml/min Estimated GFR () 96.6 Estimated GFR (Non- 83.4 BUN/Creatinine Ratio 18.9 10-20 Random Glucose 109 70-99 mg/dl Lactic Acid Level 0.9 0.4-2.0 mmol/L Calcium Level 8.9 8.5-10.1 mg/dl Total Bilirubin 0.7 0.2-1 mg/dl Direct Bilirubin 0.2 0-0.2 mg/dl Aspartate Amino Transf (AST/SGOT) 24 15-37 U/L Alanine Aminotransferase (ALT/SGPT) 22 12-78 U/L Alkaline Phosphatase 71 45-117 U/L Troponin I < 0.015 0-0.045 ng/ml Total Protein 7.6 6.4-8.2 gm/dl Albumin 3.8 3.4-5.0 gm/dl Lipase 56 73-393 U/L Influenza Type A Antigen POS for Influ A NEG Influenza Type B Antigen Neg for Influ B NEG Venous Blood pH 7.46 7.36-7.41 Venous Blood Partial Pressure CO2 36 38.0-50.0 mmHg Venous Blood Partial Pressure O2 62 mmHg Venous Blood HCO3 25 mmol/L Venous Blood Oxygen Saturation 90.8 % Venous Blood Base Excess 1.8 mEq/L Microbiology Results 08/23/17 Blood Culture, Received Pending 08/23/17 Blood Culture, Received Pending Diagnostic Radiology CT head: There is a punctate focus of increased density within the central cande as described above. This raises the possibility of a tiny focus of pontine hemorrhage versus a small calcification. Therefore, [address] follow-up is recommended to ensure stability. Impression Assessment and Plan 77 y/o F Hx HTN, HPL, Factor V Leiden mutation, TIA, RA, chronic pain. Presents with nausea, vomiting, diarrhea, falls, confusion and cough. The diarrhea and vomiting had occurred one day prior and have resolved. She was found on the floor today next to her bed where she had fallen and could not get up. She could not recall suffering any head trauma. This is reportedly her 4th fall in the past 2 weeks. Her daughter also states that during the same time period she appeared to be exhibiting periods of confusion and perhaps cognitive decline. The pt was febrile on arrival to the ER. Initial labs are notable for a positive rapid flu. A CT head was obtained. There is a question of a punctate pontine hemorrhage vs an area of calcification. 1) Influenza A - provided with Tamiflu and IVF - the pt does not quite meet criteria for admission based on influenza alone. 2) Falls - PT/OT to assess - question of punctate hemorrhage of cande - will repeat CT in 6hrs 3) Confusion - when acute illness has resolved, the pt should be evaluated for onset of dementia 4) HTN - cont Verapamil 5) Factor V Leiden - does not take anticoagulation normally 6) RA - cont daily prednisone Full code - SCDs pending repeat CT head Total time for this admit including review of labs, meds, imaging, records - discussion with pt, daughter, ER attending - 38 min Level of Care Med/Surg Resuscitation Status FULL RESUSCITATION VTE Prophylaxis Given or contraindicated: SCD's
[2017-08-23] MEDS ORDERED: DIAZEPAM 5MG TAB ONE (22:33)
[2017-08-23] MEDS ORDERED: ONDANSETRON INJ 2 MG/ML 2 ML VIAL ONE (22:33)
[2017-08-23] MEDS ORDERED: IV FLUIDS COMPLETED PRN (23:00)
[2017-08-24] VITALS (8 sets, daily range): BP systolic 113–152; BP diastolic 62–76; PULSE 61–70; TEMP 36.1–36.8; O2SAT 91–97; Ht 154.9 cm; Wt 70.4 kg
[2017-08-24] MEDS ORDERED: D5NSS + 20MEQ KCL 1,000 ML IV SCH (00:30)
[2017-08-24] MEDS ORDERED: NURSING VERBAL MED ORDER ONE (01:15)
[2017-08-24] MEDS ORDERED: VERAPAMIL HCL 240 MG TABCR PO ONE (02:15)
[2017-08-24] MEDS: ALBUTEROL 0.083% NEBU SOLN 3 ML VIAL INH SCH ×4 (07:02→19:51)
[2017-08-24] MEDS: PANTOprazole SOD 40 MG TAB PO SCH ×2 (07:20→19:55)
[2017-08-24] MEDS: CALCIUM 600MG + VIT D 400 IU TAB PO SCH ×2 (07:20→19:55)
[2017-08-24] MEDS: DULOXETINE (CYMBALTA) 30 MG CAP PO SCH (07:20)
[2017-08-24] MEDS: CHOLECALCIFEROL 1000 INTER.UNIT TAB PO SCH (07:21)
--- NOTE | 2017-08-24 07:54 | DIAGNOSTIC IMAGING REPORT ---
HEAD WITHOUT CONTRAST (CT) CLINICAL HISTORY: 77 years-old Female with follow-up for possible pontine hemorrhage. Follow-up study in a patient with possible pontine hemorrhage TECHNIQUE: Multiple axial CT images of the head were obtained without contrast. A dose lowering technique was utilized adhering to the principles of ALARA. CT DOSE: 537.48 mGy.cm COMPARISON: CT head 08/23/2017 at 6:57 PM, CT head 12/16/2014, 07/07/2014, brain MRI 08/09/[address] head 05/24/2012. FINDINGS: Punctate focus of increased attenuation is again noted within the central cande which appears unchanged on image 8 series 2. Moderate atrophy with ill-defined areas of low-attenuation redemonstrated within the periventricular white matter compatible with chronic microvascular ischemic changes. Ex vacuo ventriculomegaly. Remote lacunar infarction of the left basal ganglia. No evidence of territorial infarct, midline shift or hydrocephalus. No abnormal extra-axial collections. Cerebral vascular calcifications are seen at the level of the skull base. No skull fracture. Mastoid air cells and middle ear cavities are clear. Paranasal sinuses are also generally clear. Soft tissues are unremarkable. The orbits are symmetric. IMPRESSION: 1. Unchanged punctate focus of increased attenuation involving the central cande appears stable from study dated 08/23/2017. Differential considerations again would include area of parenchymal calcification or a tiny intra-axial hemorrhage. 2. Chronic changes as above. The above report was generated using voice recognition software. It may contain grammatical, syntax or spelling errors. Electronically signed by: Gianfranco Eaton M.D. 08/24/2017 7:53 AM Dictated Date/Time: 08/24/2017 7:48 AM
[2017-08-24] MEDS ORDERED: OSELTAMIVIR PHOSPHATE SUSP 30 MG/5 ML UDP PO SCH (08:00)
[2017-08-24] MEDS: HYDROCODONE/ACETAMI 10/325 TAB PO PRN ×3 (08:15→20:08)
[2017-08-24 08:27] LABS: CALCIUM 7.8 mg/dl (8.5-10.1); CREATININE 0.61 mg/dl (0.60-1.20); POTASSIUM 3.1 mmol/L (3.5-5.1)
[2017-08-24] MEDS ORDERED: POTASSIUM CHLORIDE 10 MEQ TABCR PO ONE (10:00)
--- NOTE | 2017-08-24 11:38 | Hospitalist Progress Note ---
Hospitalist Progress Note Date of Service Aug 24, 2017. Subjective Pt evaluation today including: conversation w/ patient, conversation w/ family (Granddaughter in the room) Voiding: gill catheter in place (Due to patient and family's request for significant incontinence) Patient feeling much better today. Still coughing quite a bit. Denies shortness of breath. Reports 4-5 falls over the last month that are not preceded by any prodrome, no chest pain or palpitations, no headaches, no numbness tingling or weakness except for some paresthesias in the left first 3 fingers. She denies orthostasis although 1 of the falls occurred when she got out of bed and started walking across the room. She denies any loss of consciousness with any of the falls, no head trauma. She does report that her left knee gives out at times but when that happens she usually has significant pain with that-she has not had pain in the knee with any of these falls. As for her flulike symptoms, they started about 2 days ago with cough, vomiting and diarrhea. Her vomiting and diarrhea has completely resolved. All Other Systems: Reviewed and Negative Objective Vital Signs Date Time Temp Pulse Resp B/P (MAP) Pulse Ox O2 Delivery O2 Flow Rate FiO2 08/24/17 11:27 61 16 91 Room Air 08/24/17 08:00 Room Air 08/24/17 07:14 36.7 66 18 113/71 (85) 97 2.0 08/24/17 07:02 67 14 97 Nasal Cannula 2.0 08/24/17 01:00 95 Nasal Cannula 1.0 08/24/17 00:15 36.1 70 17 148/76 95 Nasal Cannula 1.0 08/23/17 23:44 73 18 144/81 92 Room Air 08/23/17 22:14 74 18 138/70 93 Room Air 08/23/17 21:26 76 08/23/17 20:13 84 18 131/77 94 Room Air 08/23/17 18:46 84 18 160/94 95 Room Air 08/23/17 17:29 87 08/23/17 17:00 38.0 87 18 145/83 93 Room Air 08/23/17 17:00 93 Room Air Physical Exam General Appearance: WD/WN, no apparent distress (Sitting in chair at bedside) Eyes: normal inspection, EOMI, sclerae normal ENT: hearing grossly normal Neck: trachea midline Respiratory/Chest: no respiratory distress, no accessory muscle use, + crackles (Mild at bases, otherwise clear) Cardiovascular: regular rate, rhythm, no edema, no gallop, no murmur Abdomen: normal bowel sounds, non tender, soft Extremities: no pedal edema, no calf tenderness, + pertinent finding ( Significant ulnar deviation of the MCPs and PIPs of the hands bilaterally) Neurologic/Psychiatric: alert, normal mood/affect, oriented x 3 Skin: normal color, warm/dry, no rash Laboratory Results Last 24 Hours Test 08/23/17 18:15 08/23/17 18:17 08/23/17 18:42 08/23/17 19:09 White Blood Count 4.59 K/uL Red Blood Count 4.60 M/uL Hemoglobin 14.5 g/dL Hematocrit 42.2 % Mean Corpuscular Volume 91.7 fL Mean Corpuscular Hemoglobin 31.5 pg Mean Corpuscular Hemoglobin Concent 34.4 g/dl Platelet Count 182 K/uL Mean Platelet Volume 9.3 fL Neutrophils (%) (Auto) 71.3 % Lymphocytes (%) (Auto) 13.7 % Monocytes (%) (Auto) 14.2 % Eosinophils (%) (Auto) 0.2 % Basophils (%) (Auto) 0.2 % Neutrophils # (Auto) 3.27 K/uL Lymphocytes # (Auto) 0.63 K/uL Monocytes # (Auto) 0.65 K/uL Eosinophils # (Auto) 0.01 K/uL Basophils # (Auto) 0.01 K/uL RDW Standard Deviation 48.4 fL RDW Coefficient of Variation 14.3 % Immature Granulocyte % (Auto) 0.4 % Immature Granulocyte # (Auto) 0.02 K/uL Sodium Level 133 mmol/L Potassium Level 3.5 mmol/L Chloride Level 97 mmol/L Carbon Dioxide Level 25 mmol/L Anion Gap 11.0 mmol/L Blood Urea Nitrogen 13 mg/dl Creatinine 0.69 mg/dl Est Creatinine Clear Calc Drug Dose 59.7 ml/min Estimated GFR () 96.6 Estimated GFR (Non- 83.4 BUN/Creatinine Ratio 18.9 Random Glucose 109 mg/dl Lactic Acid Level 0.9 mmol/L Calcium Level 8.9 mg/dl Total Bilirubin 0.7 mg/dl Direct Bilirubin 0.2 mg/dl Aspartate Amino Transf (AST/SGOT) 24 U/L Alanine Aminotransferase (ALT/SGPT) 22 U/L Alkaline Phosphatase 71 U/L Troponin I < 0.015 ng/ml Total Protein 7.6 gm/dl Albumin 3.8 gm/dl Lipase 56 U/L Influenza Type A Antigen POS for Influ A Influenza Type B Antigen Neg for Influ B Urine Color DK YELLOW Urine Appearance CLEAR Urine pH 7.0 Urine Specific [place] 1.020 Urine Protein NEG Urine Glucose (UA) NEG Urine Ketones TRACE Urine Occult Blood NEG Urine Nitrite NEG Urine Bilirubin NEG Urine Urobilinogen NEG Urine Leukocyte Esterase NEG Venous Blood pH 7.46 Venous Blood Partial Pressure CO2 36 mmHg Venous Blood Partial Pressure O2 62 mmHg Venous Blood HCO3 25 mmol/L Venous Blood Oxygen Saturation 90.8 % Venous Blood Base Excess 1.8 mEq/L Test 08/24/17 07:30 Sodium Level 135 mmol/L Potassium Level 3.1 mmol/L Chloride Level 101 mmol/L Carbon Dioxide Level 27 mmol/L Anion Gap 7.0 mmol/L Blood Urea Nitrogen 8 mg/dl Creatinine 0.61 mg/dl Est Creatinine Clear Calc Drug Dose 68.2 ml/min Estimated GFR () 100.6 Estimated GFR (Non- 86.8 BUN/Creatinine Ratio 13.0 Random Glucose 123 mg/dl Calcium Level 7.8 mg/dl Magnesium Level 2.0 mg/dl Assessment and Plan This patient is a 77 y/o F Hx HTN, HPL, Factor V Leiden mutation not on anticoagulation, TIA, RA, chronic pain, and ROGERIO. Presents with nausea, vomiting , diarrhea, frequent falls falls over the last month, acute confusion and cough. The diarrhea and vomiting had occurred one day prior and have resolved. She was found on the floor on the day of admission next to her bed where she had fallen and could not get up. She could not recall suffering any head trauma. This is reportedly her 4th fall in the past month. Her daughter also states that during the same time period she appeared to be exhibiting periods of confusion and perhaps cognitive decline. The pt was febrile on arrival to the ER. Initial labs are notable for a positive rapid flu. A CT head was obtained. There is a question of a punctate pontine hemorrhage vs an area of calcification. Influenza A, lower respiratory infection/acute metabolic encephalopathy-fairly stable from this aspect. Encephalopathy seems to have resolved. She is not hypoxic and her chest x-ray does not show evidence of pneumonia. -Continue 5 day course of Tamiflu -Will now discontinue IVF Falls/abnormal head CT-multiple falls of unknown etiology over the last month. Does not sound cardiac in nature, there is been no syncope. She does have significant rheumatoid arthritis and is on chronic steroids so perhaps she could have steroid-induced myopathy and/or weakness. There is the abnormal CT of the head with questionable hemorrhage in the cande that is stable on repeat CT scan that perhaps could be contributing? -PT/OT to assess and recommend 24-hour care versus SNF placement -Consult neurology for this plus the question of punctate hemorrhage of the cande HTN -stable -cont Verapamil Factor V Leiden - does not take anticoagulation normally RA - cont daily prednisone, no need for stress dose steroids right now GERD-worsened by Tamiflu currently -Continue PPI twice daily -Add on Zantac 150 millirems p.o. twice daily -Maalox as needed Chronic pain and arthritis pain- takes hydrocodone as needed, Valium as needed-caution with falls and these medications in the elderly -Continue Cymbalta and gabapentin FEN-hypokalemia -Replace potassium orally Continue Gill as per patient and family's request for now but explained increased risk of infection and would like to remove as soon as possible Prophylaxis-SCDs only until question of intracerebral hemorrhage is ruled out Full code Disposition- will likely need SNF versus rehab placement
[2017-08-24] MEDS ORDERED: RANITIDINE HCL 150 MG TAB PO ONE (12:00)
[2017-08-24] MEDS: OSELTAMIVIR PHOSPHATE 75 MG CAP PO SCH (19:53)
[2017-08-24] MEDS: PRAMIPEXOLE DIHYDROCHLORIDE 0.25MG TAB PO SCH (19:55)
[2017-08-24] MEDS: VERAPAMIL HCL 240 MG TABCR PO SCH (19:55)
[2017-08-24] MEDS: RANITIDINE HCL 150 MG TAB PO SCH (19:55)
[2017-08-24] MEDS: DIAZEPAM 5MG TAB PO PRN (20:07)
[2017-08-25] VITALS (9 sets, daily range): BP systolic 104–154; BP diastolic 58–69; PULSE 58–72; TEMP 36.6–37; O2SAT 93–97
[2017-08-25 06:52] LABS: BASO % 0.9 %; BASO ABS # 0.03 K/uL (0-0.2); EOS % 1.7 %; EOS ABS # 0.06 K/uL (0-0.5); HEMATOCRIT 37.2 % (37-47); HEMOGLOBIN 12.5 g/dL (12.0-16.0); IG# 0.02 K/uL (0.00-0.02); LYMPH % 35.3 %; LYMPH ABS # 1.21 K/uL (1.2-3.4); MEAN CELL VOLUME 92.8 fL (80-100); MEAN CORPUSCULAR HEMOGLOBIN 31.2 pg (25-34); MEAN CORPUSCULAR HGB CONC 33.6 g/dl (32-36); MEAN PLATELET VOLUME 9.4 fL (7.4-10.4); MONO % 14.6 %; NEUT % 46.9 %; NEUT ABS # 1.61 K/uL (1.4-6.5); PLATELET COUNT 169 K/uL (130-400); RED CELL DISTRIBUTION WIDTH CV 14.3 % (11.5-14.5); RED CELL DISTRIBUTION WIDTH SD 48.9 fL (36.4-46.3); WHITE BLOOD COUNT 3.43 K/uL (4.8-10.8)
[2017-08-25] MEDS: ALBUTEROL 0.083% NEBU SOLN 3 ML VIAL INH SCH ×4 (06:54→18:53)
[2017-08-25 07:22] LABS: CALCIUM 8.2 mg/dl (8.5-10.1); CREATININE 0.57 mg/dl (0.60-1.20); POTASSIUM 4.2 mmol/L (3.5-5.1)
[2017-08-25] MEDS: PANTOprazole SOD 40 MG TAB PO SCH ×2 (08:27→20:37)
[2017-08-25] MEDS: CALCIUM 600MG + VIT D 400 IU TAB PO SCH ×2 (08:27→20:36)
[2017-08-25] MEDS: CHOLECALCIFEROL 1000 INTER.UNIT TAB PO SCH (08:27)
[2017-08-25] MEDS: RANITIDINE HCL 150 MG TAB PO SCH ×2 (08:27→20:38)
[2017-08-25] MEDS: DULOXETINE (CYMBALTA) 30 MG CAP PO SCH (08:27)
[2017-08-25] MEDS: OSELTAMIVIR PHOSPHATE 75 MG CAP PO SCH ×2 (08:27→20:36)
[2017-08-25] MEDS: HYDROCODONE/ACETAMI 10/325 TAB PO PRN ×3 (09:37→21:22)
--- NOTE | 2017-08-25 12:04 | Neurology Consultation ---
Neurology Consultation Date of Consultation: Aug 25, 2017. Attending Physician: Lor Horowitz MD Primary Care Physician: Manuel Crum M.D. Reason for Consultation: Patient is a 77-year-old, was asked to see the request of Dr. Horowitz, for neurologic consultation regarding an abnormal CT scan of the head (question punctate pontine hemorrhage versus calcium), weakness, and mental status changes. History of Present Illness Source: patient, family, caregiver, clinic records, hospital records Patient has had some history of TIAs. They report several. I only see 1 in the chart and that was in April of 2012 when she was admitted for a 10 minutes episode of slurred and garbled speech followed by a significant headache. She saw Dr. Ruano during that visit and he diagnosed migraine and not a TIA. I do not have any details about the other events that she and her daughter (who is present at bedside today) state were TIAs. The patient has a longstanding history of rheumatoid arthritis and she carries a diagnosis of lupus (although not active currently as far as I can gather) and factor 5 Leiden. She has been on warfarin in the past and other medication for the factor 5 Leiden but all of them made her extremely bruised so they stopped medication. She has been on Plaquenil in the past but stopped this. Currently she has been on relatively low dose prednisone, for many years. Over the last year so the patient's memory has been declining. She gets forgetful for names and what she wants to say. The daughter notices a decline over time. She denies headaches or vision problems. Patient has had urinary incontinence for years. This is very regular currently. The patient has had weakness and balance problems for several years. Is been getting worse over the last 6 months or so. She has fallen multiple times and believes that her legs give out and she does not become lightheaded or have syncope. She is not vertiginous either. She loses her balance or legs will buckle. Her joints hurt diffusely. Patient was admitted on August 23 with a 2 day history of nausea, vomiting, diarrhea, cough, and some confusion. By the day of admission she could not stand or walk. On August 23, at 1700 hours, blood pressure was 145/83, pulse 87 and regular, respiratory rate 18, blood pressure 30 8.0, and O2 saturation 93 percent. She was alert in the emergency room but very fatigued. She had weakness in all limbs at a 4/5 strength. Chest x-ray was unremarkable CT scan of the head showed increased density in the left central cande consistent of possible hemorrhage versus calcium. A repeat CT scan the next day showed similar findings. There is no mass effect with this. I reviewed these films. Patient denies any new numbness weakness or pain of the legs in the last day or so. She feels better today. When asked about her mood, the patient lopez Michele said that she was very stressed and depressed. Her is ill and can't care for self at home she realizes she cannot do as much as she used to. CBC and Chem profile were unremarkable. Past Medical/Surgical History Medical Problems: (1) Asthma, Unspecified Status: Chronic (2) Chronic low back pain Status: Chronic (3) Dehydration Status: Acute (4) Factor V Leiden Status: Chronic (5) Fall Status: Acute (6) Fall Status: Acute (7) Generalized weakness Status: Acute (8) History of spinal stenosis Status: Chronic (9) Hypertension Nos Status: Chronic (10) Laceration of forearm, right Status: Acute (11) Laceration of forearm, right Status: Acute (12) Lupus Status: Chronic (13) Mixed Hyperlipidemia Status: Chronic (14) Obstructive Sleep Apnea (Adult) (Pediatric) Status: Chronic (15) Reflux Esophagitis Status: Chronic (16) Restless leg syndrome Status: Chronic (17) Ulna fracture Status: Acute (18) Ulna fracture Status: Acute (19) Unspecified Urinary Incontinence Status: Chronic Factor 5 Leiden Dyslipidemia Hypertension Gastroesophageal reflux disease Obstructive sleep apnea Restless leg syndrome History of elevated VIPIN and lupus History of significant rheumatoid arthritis History of TIA versus migraine 2012 Urinary incontinence Mild memory problems Depression History of low back pain with spinal stenosis post lumbar spine surgery by Dr. Jenkins in 2015 Post bilateral cataract surgery Hysterectomy Right carpal tunnel syndrome repair Failed right rotator cuff repair surgery with chronic right rotator cuff problems. Family History Patient's mother in her 70s of a stroke. She had diabetes. Patient's father in his 60s of a stroke. He had heart disease. Social History Patient has never used tobacco products and does not use alcohol. 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 Smoking Status: Never smoker Smokeless Tobacco Use: No Alcohol Use: none Drug Use: none Marital Status: Housing Status: lives with family, unknown Occupation Status: retired Allergies Coded Allergies: Penicillins (Verified Allergy, Intermediate, HIVES, 11/05/16) Adhesives (Verified Allergy, Unknown, SKIN REDNESS AND IRRITATION, 11/05/16 ) Latex (Verified Allergy, Unknown, PATIENT UNSURE, 11/05/16) Tolterodine (Verified Adverse Reaction, Intermediate, GI SYMPTOMS, 11/05/16 ) Nausea/vomiting Current Inpatient Medications Current Inpatient Medications Medications (Trade) Dose Ordered Sig/Bruce Route Start Time Stop Time Status Last Admin Dose Admin Albuterol Sulfate (Ventolin 0.083% 2.5MG/3ML Neb) 2.5 mg QIDR INH 08/24/17 08:00 09/23/17 07:59 08/25/17 11:30 2.5 MG Diazepam (Valium Tab) 5 mg TID PRN PO 08/23/17 21:30 09/22/17 21:29 08/24/17 20:07 5 MG Duloxetine HCl (Cymbalta Cap) 30 mg DAILY PO 08/24/17 08:00 09/23/17 08:59 08/25/17 08:27 30 MG Acetaminophen/ Hydrocodone Bitart ([place] 10/325 Tab) 1 tab QID PRN PO 08/23/17 21:30 09/06/17 21:29 08/25/17 09:37 1 TAB Pantoprazole Sodium (Protonix Tab) 40 mg BID PO 08/24/17 08:00 09/23/17 08:59 08/25/17 08:27 40 MG Prednisone (PredniSONE TAB) 7.5 mg QAM PO 08/24/17 08:00 09/23/17 08:59 08/25/17 08:27 7.5 MG Verapamil HCl (Calan-Sr Tab) 240 mg QPM PO 08/24/17 21:00 09/23/17 20:59 08/24/17 19:55 240 MG Calcium/Vitamin D (Caltrate Plus Tab) 1 tab BID PO 08/24/17 08:00 09/23/17 08:59 08/25/17 08:27 1 TAB Cholecalciferol (Vitamin D Tab) 5,000 inter.unit QAM PO 08/24/17 08:00 09/23/17 08:59 08/25/17 08:27 5,000 INTER.UNIT Pramipexole Dihydrochloride (miraPEX TAB) 0.75 mg QPM PO 08/24/17 21:00 09/23/17 20:59 08/24/17 19:55 0.75 MG Al Hydrox/Mg Hydrox/Simethicone (Maalox Max Susp) 15 ml Q4H PRN PO 08/23/17 22:15 09/22/17 22:14 08/24/17 09:30 15 ML Magnesium Hydroxide (Milk Of Magnesia Susp) 30 ml Q6H PRN PO 08/23/17 22:15 09/22/17 22:14 Polyethylene (Miralax Powder Packet) 17 gm DAILY PRN PO 08/23/17 22:15 09/22/17 22:14 Ondansetron HCl (Zofran Inj) 4 mg Q6H PRN IV 08/23/17 22:15 09/22/17 22:14 Miscellaneous (Iv Fluids Completed) 1 ea PRN PRN N/A 08/23/17 23:00 08/23/18 22:59 Oseltamivir Phosphate (Tamiflu Cap) 75 mg BID PO 08/24/17 20:00 08/29/17 19:59 08/25/17 08:27 75 MG Ranitidine HCl (zANTac TAB) 150 mg BID PO 08/24/17 20:00 09/23/17 19:59 08/25/17 08:27 150 MG Review of Systems Constitutional: + weakness, + fatigue, No fever Eyes: No worsening of vision, No diplopia ENT: No hearing loss, No tinnitus Respiratory: No cough, No shortness of breath Cardiovascular: No chest pain, No palpitations Abdomen: No pain, No nausea Musculoskeletal: + joint pain, + muscle pain Genitourinary - Female: + urinary incontinence, No dysuria Neurologic: + memory loss, + weakness, No numbness/tingling, No balance problems Psychiatric: + depression symptoms, + anxiety Endocrine: + fatigue Hematologic / Lymphatic: No abnormal bleeding/bruising Integumentary: No rash Allergic / Immunologic: No hives Physical Exam Vital Signs (Past 24 Hrs): Date Time Temp Pulse Resp B/P (MAP) Pulse Ox O2 Delivery O2 Flow Rate FiO2 08/25/17 11:33 68 16 95 Room Air 08/25/17 08:00 94 Room Air 08/25/17 07:48 36.6 61 20 104/58 (73) 94 Room Air 08/25/17 07:46 Room Air 08/25/17 06:57 58 16 93 Room Air 08/25/17 00:05 Nasal Cannula 1.0 08/24/17 23:31 36.8 70 18 152/75 (100) 97 Nasal Cannula 1.0 08/24/17 20:00 Nasal Cannula 1.0 08/24/17 16:26 36.6 67 20 116/62 (80) 96 Room Air 08/24/17 16:00 Room Air 08/24/17 15:34 64 16 91 Room Air Patient is right-handed. The patient is awake and alert. Speech is normal without aphasia or dysarthria. Mentation and thought processes are somewhat slow and she has somewhat poor long and short-term memory. Mood is somewhat down and affect is appropriate. Appearance and grooming are normal. The discs are sharp with positive venous pulsations. There are no exudates, hemorrhages, or blood vessel changes seen. Pupils are 3mm bilaterally and reactive to light. Extraocular eye muscles are intact without nystagmus. Visual acuity and visual sepulveda seem normal grossly to confrontation. There are no deficits to sensation of the face bilaterally. Corneal reflexes are positive bilaterally. Facial strength and symmetry is normal bilaterally. Hearing seems intact grossly to voice and finger rub. Palate moves well without asymmetry. There is normal sternocleidomastoid and trapezius strength bilaterally. Tongue is midline with good strength bilaterally. Neck is with full range of motion without discomfort. There are no cervical bruits. There are no cranial or ocular bruits. Heart is without murmur. Cervical, thoracic, and lumbar spine are nontender to palpation. Gait is slow and cautious and she holds onto a walker for support. With outstretched arms there is no drift. There are no resting, postural, or action tremors. There is no ataxia with [id number] testing. There is reasonable facility in the hands, given her joint deformities in the fingers of both hands. There are no abnormal involuntary movements noted. Motor strength is 4/5 proximally in the triceps and biceps bilaterally along with the left deltoid. The right rotator cuff is quite weak and painful limiting movement. Wrist extensors , job hand, and wrist flexors are 5/5 bilaterally. Hip flexors and hamstring muscles are 4/5 bilaterally and quadriceps were 4+/5 bilaterally. Tibialis anterior and gastrocnemius strength is 5/5 bilaterally. The limbs have good tone without rigidity or spasticity, and there some atrophy noted in the small muscles of the hands and feet bilaterally diffusely. Muscle bulk is normal, there is no tenderness, no myotonia noted to percussion, and no fasciculations seen. Sensory examination is intact to pin and touch throughout all four limbs. Reflexes are 2/4 in the biceps, triceps, brachioradialis, quadriceps, and Achilles tendons bilaterally. Toes are downgoing with plantar stimulation bilaterally. Peripheral pulses are present and of normal quality distally in all four limbs. There is no peripheral edema noted. Laboratory Results Past 24 Hours: 08/25/17 06:31 Red Blood Count 4.01, Mean Corpuscular Volume 92.8, Mean Corpuscular Hemoglobin 31.2, Mean Corpuscular Hemoglobin Concent 33.6, Mean Platelet Volume 9.4, Neutrophils (%) (Auto) 46.9, Lymphocytes (%) (Auto) 35.3, Monocytes (%) (Auto) 14.6, Eosinophils (%) (Auto) 1.7, Basophils (%) (Auto) 0.9, Neutrophils # (Auto ) 1.61, Lymphocytes # (Auto) 1.21, Monocytes # (Auto) 0.50, Eosinophils # (Auto ) 0.06, Basophils # (Auto) 0.03 08/25/17 06:31 Test 08/25/17 06:31 White Blood Count 3.43 K/uL (4.8-10.8) Red Blood Count 4.01 M/uL (4.2-5.4) Hemoglobin 12.5 g/dL (12.0-16.0) Hematocrit 37.2 % (37-47) Mean Corpuscular Volume 92.8 fL (80-100) Mean Corpuscular Hemoglobin 31.2 pg (25-34) Mean Corpuscular Hemoglobin Concent 33.6 g/dl (32-36) Platelet Count 169 K/uL (130-400) Mean Platelet Volume 9.4 fL (7.4-10.4) Neutrophils (%) (Auto) 46.9 % Lymphocytes (%) (Auto) 35.3 % Monocytes (%) (Auto) 14.6 % Eosinophils (%) (Auto) 1.7 % Basophils (%) (Auto) 0.9 % Neutrophils # (Auto) 1.61 K/uL (1.4-6.5) Lymphocytes # (Auto) 1.21 K/uL (1.2-3.4) Monocytes # (Auto) 0.50 K/uL (0.11-0.59) Eosinophils # (Auto) 0.06 K/uL (0-0.5) Basophils # (Auto) 0.03 K/uL (0-0.2) RDW Standard Deviation 48.9 fL (36.4-46.3) RDW Coefficient of Variation 14.3 % (11.5-14.5) Immature Granulocyte % (Auto) 0.6 % Immature Granulocyte # (Auto) 0.02 K/uL (0.00-0.02) Anion Gap 7.0 mmol/L (3-11) Est Creatinine Clear Calc Drug Dose 73.0 ml/min Estimated GFR () 102.9 Estimated GFR (Non- 88.8 BUN/Creatinine Ratio 11.3 (10-20) Calcium Level 8.2 mg/dl (8.5-10.1) Magnesium Level 2.1 mg/dl (1.8-2.4) Imaging HEAD WITHOUT CONTRAST (CT) CLINICAL HISTORY: 77 years-old Female with follow-up for possible pontine hemorrhage. Follow-up study in a patient with possible pontine hemorrhage TECHNIQUE: Multiple axial CT images of the head were obtained without contrast. A dose lowering technique was utilized adhering to the principles of ALARA. CT DOSE: 537.48 mGy.cm COMPARISON: CT head 08/23/2017 at 6:57 PM, CT head 12/16/2014, 07/07/2014, brain MRI 08/09/[address] head 05/24/2012. FINDINGS: Punctate focus of increased attenuation is again noted within the central cande which appears unchanged on image 8 series 2. Moderate atrophy with ill-defined areas of low-attenuation redemonstrated within the periventricular white matter compatible with chronic microvascular ischemic changes. Ex vacuo ventriculomegaly. Remote lacunar infarction of the left basal ganglia. No evidence of territorial infarct, midline shift or hydrocephalus. No abnormal extra-axial collections. Cerebral vascular calcifications are seen at the level of the skull base. No skull fracture. Mastoid air cells and middle ear cavities are clear. Paranasal sinuses are also generally clear. Soft tissues are unremarkable. The orbits are symmetric. IMPRESSION: 1. Unchanged punctate focus of increased attenuation involving the central cande appears stable from study dated 08/23/2017. Differential considerations again would include area of parenchymal calcification or a tiny intra-axial hemorrhage. 2. Chronic changes as above. The above report was generated using voice recognition software. It may contain grammatical, syntax or spelling errors. Electronically signed by: Gianfranco Eaton M.D. 08/24/2017 7:53 AM Impression 1. Abnormal CT scan of the head. I believe this punctate lesion in the left central cande is consistent with a bit of calcium. I do not believe there is any evidence of hemorrhage and she does not have any acute symptoms correlating to this area of the brainstem on exam or by history. 2. Memory dysfunction I believe she has a mild dementia, possibly vascular versus other. This, Incorporated with her urinary incontinence and balance issues could indicate normal pressure hydrocephalus. However, the CT scan of the head seem to have significant atrophy in general so that her on large ventricles were likely hydrocephalus ex vacuo. 3. Weakness She has a proximal weakness consistent with a myopathy. 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 This coupled with her significant arthritis is likely affecting her gait. She is probably falling because of mechanical issues. 4. Depression This is situational but needs attention. 5. Significant rheumatoid arthritis and possible lupus on chronic steroid use. She is off Plaquenil. Plan 1. MRI of the brain with without contrast to evaluate the ventricles and evaluate for cerebral vascular disease in lieu of her dementia. 2. Additional recommendations regarding her dementia or normal pressure hydrocephalus will be considered as an outpatient, also depending upon the MRI results. 3. Consider EMG and nerve conduction studies of 1 arm and leg to evaluate for myopathy, neuropathy, or radiculopathy. This should be done as an outpatient. 4. Consider evaluation for her mood as this is affecting her general condition. I will defer this to her primary care physician. 5. Consider Rheumatology evaluation. The patient wishes to have a no other residential therapist. Again, this would be done as an outpatient. I spoke with Dr. Horowitz regarding this case including treatment options and differential diagnosis. Overall, I spent a total of 110 minutes with this case including records and film review, discussion with clinicians and caregivers, direct bedside evaluation and discussion with the patient and her daughter who was at bedside today.
--- NOTE | 2017-08-25 13:45 | Medical Student: [facility] ---
Consultation Date of Consultation: Aug 25, 2017. Reason for Consultation: Confusion, falls History of Present Illness This is a 77-year-old female with a history of rheumatoid arthritis, HTN, factor 5 leiden, essential tremor, restless legs syndrome, depression, and episodes concerning TIA vs. migraine who presented to [facility] for fevers, chills, vomiting/diarrhea, headache, confusion and falls. In the ED she was found to be influenza positive and was started on oseltamivir and IVF. Work-up in the ED also revealed a punctate pontine hyperdensity indicating hemorrhage vs. calcification. Neurology is consulted for evaluating patient's confusion, falls , and worsening incontinence. Sobia states that her first fall was about one year ago when she stood up from the toilet and fell into the shower in her home. Other times she fell when trying to get out of bed, when standing from sitting, when ambulating in her yard, and while trying to reach the bathroom after sudden urge to urinate. She denies losing consciousness, dizziness, palpitations, chest pain, numbness, or tingling associated with these events. She does have thigh weakness and shares that her knees do "give out" on her, but this is usually associated with pain, and she has never fallen from it. She is unable to identify any prodrome before a fall. She does have a walker and a cane in her home but finds them difficult to use in certain areas of her house, such as moving through doorways. Sometimes her is able to help her up, but other times she will call one of her daughters to come over to help her. However, she reveals that she does not always tell her children that she has fallen because she feels they are already very busy and does not want to burden them. In addition to falls, Sobia has had confusion for about 1 year. Her daughter states that while she was on oxycontin, Sobia was very confused. She was unable to do her bills and required help for home tasks like this. She was tapered from the oxycontin and is now on hydrocodone. Even after the taper, cognitive symptoms were less severe but still present. They say that she is always one to remember birthdays, but she has started to forget about them. Daughter claims that her mother has forgotten how to use her phone. She also has depression and feels she has been more irritable lately. Daughter states that her mother has been mean to cleaning staff and this is very uncharacteristic of her. She says she feels like she could cry at any moment. Sobia becomes quickly tearful when describing how stressed she is over her 's health. She is sad that he has to take care of her mistakes, such as breaking things in the kitchen. Chelsea says that she is also had urinary incontinence for many years. She sometimes has the urge to void, but cannot make it to the restroom in time. She says other times it will "just come out" without warning, too. She normally wears a smaller pad during the day and a larger pad for sleep. Lately she has needed to wear the larger nighttime pad during the day because she has leaked more urine. She states that she also has the sensation that she has urinated with urine running down her legs, when she did not actually void. The falling, cognitive impairment, and incontinence have all been present for at least a year, but have worsened in recent weeks. She now wears a larger pad and is falling more frequently. On Tuesday 08/22, she was not feeling well with nausea, vomiting and diarrhea which resolved by the next day. On Wednesday, she had cough and fever. When she woke up and tried to get out of bed in the morning , she says she "slid out" She was unable to get up on her own, and her couldn't help her. They called their daughter who came by and got her sitting up in a chair. Later on that day, Sobia says she felt too weak to get up again. This is what prompted them to come to the ED. Currently she feels well with less cough, no fevers or chills. She does have intermittent muscle "cramps. " Past Medical/Surgical History Medical History: 1. HTN 2. Factor 5 Leiden - she is not anticoagulated as warfarin made her bruise extensively. 3. Rheumatoid arthritis since age 29 approximately 4. Depression 5. Restless leg syndrome 6. Osteoporosis 7. Essential tremor 8. Obstructive sleep apnea 9. Lupus 10. TIA vs. migraine Surgical History: 1. Lumbar surgery 2. Hysterectomy 3. Right carpal tunnel release 4. Right rotator cuff repair 5. Bilateral cataract surgery Family History Mother: heart disease, diabetes mellitus, passed from stroke in her 70s Father: heart disease, passed from stroke in his 60s Sister: Parkinson disease Daughters: hypothyroidism, HTN, hyperlipidemia, rheumatoid arthritis. Social History Smoking Status: Never Smoker History of Alcohol Use: No Drug Use: none Marital Status: Housing Status: lives with family Occupation Status: retired Review of Systems Constitutional: No fever, No chills Respiratory: + cough, No shortness of breath Cardiac: No chest pain, No palpitations Abdomen: No pain, No nausea, No vomiting, No diarrhea Musculoskeletal: + joint pain, + muscle pain Neurologic: + memory loss, + weakness, + numbness/tingling (tingling in first 3 fingers of left hand) Psychiatric: + depression symptoms Skin: No rash Allergies Coded Allergies: Penicillins (Verified Allergy, Intermediate, HIVES, 11/05/16) Adhesives (Verified Allergy, Unknown, SKIN REDNESS AND IRRITATION, 11/05/16 ) Latex (Verified Allergy, Unknown, PATIENT UNSURE, 11/05/16) Tolterodine (Verified Adverse Reaction, Intermediate, GI SYMPTOMS, 11/05/16 ) Nausea/vomiting Medications Current Inpatient Medications Medications (Trade) Dose Ordered Sig/Bruce Route Start Time Stop Time Status Last Admin Dose Admin Albuterol Sulfate (Ventolin 0.083% 2.5MG/3ML Neb) 2.5 mg QIDR INH 08/24/17 08:00 09/23/17 07:59 08/25/17 11:30 2.5 MG Diazepam (Valium Tab) 5 mg TID PRN PO 08/23/17 21:30 09/22/17 21:29 08/24/17 20:07 5 MG Duloxetine HCl (Cymbalta Cap) 30 mg DAILY PO 08/24/17 08:00 09/23/17 08:59 08/25/17 08:27 30 MG Acetaminophen/ Hydrocodone Bitart (Edmond 10/325 Tab) 1 tab QID PRN PO 08/23/17 21:30 09/06/17 21:29 08/25/17 09:37 1 TAB Pantoprazole Sodium (Protonix Tab) 40 mg BID PO 08/24/17 08:00 09/23/17 08:59 08/25/17 08:27 40 MG Prednisone (PredniSONE TAB) 7.5 mg QAM PO 08/24/17 08:00 09/23/17 08:59 08/25/17 08:27 7.5 MG Verapamil HCl (Calan-Sr Tab) 240 mg QPM PO 08/24/17 21:00 09/23/17 20:59 08/24/17 19:55 240 MG Calcium/Vitamin D (Caltrate Plus Tab) 1 tab BID PO 08/24/17 08:00 09/23/17 08:59 08/25/17 08:27 1 TAB Cholecalciferol (Vitamin D Tab) 5,000 inter.unit QAM PO 08/24/17 08:00 09/23/17 08:59 08/25/17 08:27 5,000 INTER.UNIT Pramipexole Dihydrochloride (miraPEX TAB) 0.75 mg QPM PO 08/24/17 21:00 09/23/17 20:59 08/24/17 19:55 0.75 MG Al Hydrox/Mg Hydrox/Simethicone (Maalox Max Susp) 15 ml Q4H PRN PO 08/23/17 22:15 09/22/17 22:14 08/24/17 09:30 15 ML Magnesium Hydroxide (Milk Of Magnesia Susp) 30 ml Q6H PRN PO 08/23/17 22:15 09/22/17 22:14 Polyethylene (Miralax Powder Packet) 17 gm DAILY PRN PO 08/23/17 22:15 09/22/17 22:14 Ondansetron HCl (Zofran Inj) 4 mg Q6H PRN IV 08/23/17 22:15 09/22/17 22:14 Miscellaneous (Iv Fluids Completed) 1 ea PRN PRN N/A 08/23/17 23:00 08/23/18 22:59 Oseltamivir Phosphate (Tamiflu Cap) 75 mg BID PO 08/24/17 20:00 08/29/17 19:59 08/25/17 08:27 75 MG Ranitidine HCl (zANTac TAB) 150 mg BID PO 08/24/17 20:00 09/23/17 19:59 08/25/17 08:27 150 MG Physical Exam Date Time Temp Pulse Resp B/P (MAP) Pulse Ox O2 Delivery O2 Flow Rate FiO2 08/25/17 11:33 68 16 95 Room Air 08/25/17 08:00 94 Room Air 08/25/17 07:48 36.6 61 20 104/58 (73) 94 Room Air 08/25/17 07:46 Room Air 08/25/17 06:57 58 16 93 Room Air 08/25/17 00:05 Nasal Cannula 1.0 08/24/17 23:31 36.8 70 18 152/75 (100) 97 Nasal Cannula 1.0 08/24/17 20:00 Nasal Cannula 1.0 08/24/17 16:26 36.6 67 20 116/62 (80) 96 Room Air 08/24/17 16:00 Room Air 08/24/17 15:34 64 16 91 Room Air General Appearance: WD/WN, no apparent distress Respiratory: + crackles Cardiovascular: regular rate, rhythm, + systolic murmur (2/6 ejection type) Abdomen: normal bowel sounds, non tender, soft Neurologic/Psychiatric: + pertinent finding (Patient is tearful when discussing life stressors) Neurologic Examination: Mental status: Patient is alert and oriented to person, place, and time. Language is fluent. She struggles with remote memory and often turns to her daughter to remember timeline of medical history. Cranial Nerves: I deferred II Pupils equal and small, but minimall reactive to light which is expected with history of bilateral cataract surgery. Visual sepulveda intact. Fundoscopy does not show venous engorgement, difficult to visualize optic disc and pulsations. III, IV, Extraocular movements intact without nystagmus. V Facial sensation intact in all distributions. Normal masseter tone. VII Facial movements symmetric. VIII No gross hearing impairment. IX, X Palate elevates normally. XI Weak shoulder shrug on right, related to shoulder pain. XII Sadie protrudes midline. Motor: Strength is 5/5 on upper and lower extremities distally. Patient has pain in R shoulder and is unable to abduct against resistance. Left shoulder abduction is 4/5. Hip abduction is 4/5 bilaterally. Her tone is felt to be normal. There is no pronator drift. Sensory: Light touch is preserved proximally and distally in upper and lower extremities. Vibration is impaired in lower extremities bilaterally, normal in upper extremities bilaterally. Romberg was not tested. Reflexes: Biceps, triceps, brachioradialis, patellar, and achilles were 2+ bilaterally. Gait: Patient has normal appearing gait when walking with walker but is slow in pace. Cerebellar: Finger to nose motion is smooth without tremor or dysmetria. Laboratory Results Last 24 Hours Test 08/25/17 06:31 White Blood Count 3.43 K/uL Red Blood Count 4.01 M/uL Hemoglobin 12.5 g/dL Hematocrit 37.2 % Mean Corpuscular Volume 92.8 fL Mean Corpuscular Hemoglobin 31.2 pg Mean Corpuscular Hemoglobin Concent 33.6 g/dl Platelet Count 169 K/uL Mean Platelet Volume 9.4 fL Neutrophils (%) (Auto) 46.9 % Lymphocytes (%) (Auto) 35.3 % Monocytes (%) (Auto) 14.6 % Eosinophils (%) (Auto) 1.7 % Basophils (%) (Auto) 0.9 % Neutrophils # (Auto) 1.61 K/uL Lymphocytes # (Auto) 1.21 K/uL Monocytes # (Auto) 0.50 K/uL Eosinophils # (Auto) 0.06 K/uL Basophils # (Auto) 0.03 K/uL RDW Standard Deviation 48.9 fL RDW Coefficient of Variation 14.3 % Immature Granulocyte % (Auto) 0.6 % Immature Granulocyte # (Auto) 0.02 K/uL Sodium Level 136 mmol/L Potassium Level 4.2 mmol/L Chloride Level 102 mmol/L Carbon Dioxide Level 27 mmol/L Anion Gap 7.0 mmol/L Blood Urea Nitrogen 6 mg/dl Creatinine 0.57 mg/dl Est Creatinine Clear Calc Drug Dose 73.0 ml/min Estimated GFR () 102.9 Estimated GFR (Non- 88.8 BUN/Creatinine Ratio 11.3 Random Glucose 112 mg/dl Calcium Level 8.2 mg/dl Magnesium Level 2.1 mg/dl Assessment & Plan This is a 77-year-old female with a history of rheumatoid arthritis, HTN, factor 5 leiden, essential tremor, restless legs syndrome, depression, and episodes concerning TIA vs. migraine who presented to [facility] for fevers, chills, vomiting/diarrhea, headache, confusion and falls. In the ED she was found to be influenza positive and was started on oseltamivir and IVF. Work-up in the ED also revealed a punctate pontine hyperdensity indicating hemorrhage vs. calcification. Neurology is consulted for evaluating patient's confusion, falls , and worsening incontinence. One diagnosis that could unify these symptoms is normal pressure hydrocephalus. CT scan of the head obtained in the ED did not indicate ventricular enlargement out of proportion for age. However, MRI may show more clarity, so we would recommend having this done while in the hospital. It is also possible that each of these complaints are occurring separately in etiology but concurrently in time. FALLS Patient has a long history of rheumatoid arthritis on prednisone on the order of years and chronic pain. She has also has intermittent muscle "cramping." Her gait disturbance may be musculoskeletal related from diffuse joint disease. She does have a walker and a cane in her home but finds it difficult to maneuver. Each time she has fallen she was not using assist devices. Muscle cramping in the setting of chronic prednisone use also raises a flag for steroid myopathy. The pattern of muscle weakness is more proximal which could indicate other myositises, but this is much less likely. Patient also has impaired vibratory sense in her peripheral legs which could contribute to a sensory ataxia. She could undergo and EMG to evaluate these muscular and peripheral neuropathic findings. I would also recommend following up with rheumatology to discuss possibly changing from prednisone if it is causing myopathy. Because most of her falls occur when she is transferring from laying to sitting or sitting to standing, I would also consider orthostatic hypotension as a cause of her falls. The day prior to this fall she was vomiting and had diarrhea which could lead to volume depletion, putting her at risk for orthostasis. However, she did not feel lightheaded before any of her falls and did not black out. I would still recommend orthostatic blood pressure measurements to evaluate this as a potential cause of her falls. CONFUSION Pt and family believe the confusion mostly started around the time when she was on oxycontin a year ago, but deficits have persisted even while off of it. I am concerned about the possibility of pseudodementia because of her mood problems. She is quickly tearful in our interview. She and daughter agree that she has become more irritable lately. She also feels like a burden to her children and . Depression can certainly have cognitive impairment in the elderly. This should be evaluated and corrected if present before considering other types of dementia. INCONTINENCE Incontinence has features of both urge and overflow by patient's story. Urinalysis on admission does not indicate UTI. PUNCTATE HEMORRHAGE VS. CALCIFICATION ON HEAD CT Abnormality on imaging is very small. Our team is skeptical if this is a true abnormal finding as it does not correlate with symptoms. MRI would also help evaluate this lesion.
[2017-08-25] MEDS ORDERED: GADAVIST IV PRN (15:15)
--- NOTE | 2017-08-25 15:30 | DIAGNOSTIC IMAGING REPORT ---
MRI OF THE BRAIN WITHOUT AND WITH IV CONTRAST CLINICAL HISTORY: Frequent falls. Headache. Possible pontine hemorrhage. COMPARISON STUDY: MRI of the brain August 09, [address] August 24, 2017. TECHNIQUE: Utilizing a 1.5 Meena magnet and dedicated coil, multiplanar, multiecho imaging of the brain was performed pre and postcontrast administration. IV administration of 7 mL of Gadavist contrast was uneventful. FINDINGS: There are no foci of restricted diffusion. No acute intracranial hemorrhage, midline shift or mass effect is present. Moderate atrophy is noted. This accounts for mild ventricular dilatation. The basilar cisterns are patent. There are no extra-axial collections. Flow-voids for the major intracranial vessels are present. There is no intracranial mass or pathologic enhancement. The punctate hyperdense focus within the cande shown on head CT is not evident on this exam. No pontine abnormality is present on this exam. White matter T2 hyperintense foci suggest moderate small vessel disease. Calvarial signal is maintained. There is mild mucosal thickening of the ethmoid sinuses. IMPRESSION: 1. No acute intracranial findings. 2. No intracranial mass or pathologic enhancement. 3. No MR correlate for the pontine hyperdensity on head CT. This remains indeterminate although lack of signal abnormality on this exam would favor calcification over hemorrhage. Electronically signed by: Jerry Ayoub M.D. 08/25/2017 3:29 PM Dictated Date/Time: 08/25/2017 3:22 PM
--- NOTE | 2017-08-25 19:06 | Hospitalist Progress Note ---
Hospitalist Progress Note Date of Service Aug 25, 2017. Subjective Pt evaluation today including: conversation w/ patient, conversation w/ family Feeling depressed today and is tearful. Has an intermittent headache. Cough is still present and appetite is improved. Remains afebrile. I discussed the case with the neurologist. All Other Systems: Reviewed and Negative Objective Vital Signs Date Time Temp Pulse Resp B/P (MAP) Pulse Ox O2 Delivery O2 Flow Rate FiO2 08/25/17 18:53 59 16 95 Room Air 08/25/17 14:31 72 16 97 Room Air 08/25/17 14:06 37.0 62 18 121/69 (86) 93 Room Air 08/25/17 11:33 68 16 95 Room Air 08/25/17 08:00 94 Room Air 08/25/17 07:48 36.6 61 20 104/58 (73) 94 Room Air 08/25/17 07:46 Room Air 08/25/17 06:57 58 16 93 Room Air 08/25/17 00:05 Nasal Cannula 1.0 08/24/17 23:31 36.8 70 18 152/75 (100) 97 Nasal Cannula 1.0 08/24/17 20:00 Nasal Cannula 1.0 Physical Exam General Appearance: WD/WN, no apparent distress Eyes: normal inspection, sclerae normal ENT: + pertinent finding (hard of hearing) Neck: trachea midline Respiratory/Chest: no respiratory distress, no accessory muscle use, + crackles (At the bases bilaterally) Cardiovascular: regular rate, rhythm, no edema, no murmur Abdomen: normal bowel sounds, non tender, soft Extremities: no pedal edema, no calf tenderness, + pertinent finding (Ulnar deviation of the hands in the MCP and PIP joints bilaterally) Neurologic/Psychiatric: alert, + depressed affect Skin: normal color, warm/dry, no rash Laboratory Results Last 24 Hours Test 08/25/17 06:31 White Blood Count 3.43 K/uL Red Blood Count 4.01 M/uL Hemoglobin 12.5 g/dL Hematocrit 37.2 % Mean Corpuscular Volume 92.8 fL Mean Corpuscular Hemoglobin 31.2 pg Mean Corpuscular Hemoglobin Concent 33.6 g/dl Platelet Count 169 K/uL Mean Platelet Volume 9.4 fL Neutrophils (%) (Auto) 46.9 % Lymphocytes (%) (Auto) 35.3 % Monocytes (%) (Auto) 14.6 % Eosinophils (%) (Auto) 1.7 % Basophils (%) (Auto) 0.9 % Neutrophils # (Auto) 1.61 K/uL Lymphocytes # (Auto) 1.21 K/uL Monocytes # (Auto) 0.50 K/uL Eosinophils # (Auto) 0.06 K/uL Basophils # (Auto) 0.03 K/uL RDW Standard Deviation 48.9 fL RDW Coefficient of Variation 14.3 % Immature Granulocyte % (Auto) 0.6 % Immature Granulocyte # (Auto) 0.02 K/uL Sodium Level 136 mmol/L Potassium Level 4.2 mmol/L Chloride Level 102 mmol/L Carbon Dioxide Level 27 mmol/L Anion Gap 7.0 mmol/L Blood Urea Nitrogen 6 mg/dl Creatinine 0.57 mg/dl Est Creatinine Clear Calc Drug Dose 73.0 ml/min Estimated GFR () 102.9 Estimated GFR (Non- 88.8 BUN/Creatinine Ratio 11.3 Random Glucose 112 mg/dl Calcium Level 8.2 mg/dl Magnesium Level 2.1 mg/dl Assessment and Plan This patient is a 77 y/o F Hx HTN, HPL, Factor V Leiden mutation not on anticoagulation, questionable TIA, RA on chronic steroids, chronic pain, and ROGERIO. Presents with nausea, vomiting, diarrhea, frequent falls falls over the last month, acute confusion and cough. The diarrhea and vomiting had occurred one day prior and have resolved. She was found on the floor on the day of admission next to her bed where she had fallen and could not get up. She could not recall suffering any head trauma. This is reportedly her 4th fall in the past month. Her daughter also states that during the same time period she appeared to be exhibiting periods of confusion and perhaps cognitive decline. The pt was febrile on arrival to the ER. Initial labs are notable for a positive rapid flu. A CT head was obtained. There is a question of a punctate pontine hemorrhage vs an area of calcification. Influenza A, lower respiratory infection/acute metabolic encephalopathy-fairly stable from this aspect. Encephalopathy seems to have resolved. She is not hypoxic and her chest x-ray does not show evidence of pneumonia. -Continue 5 day course of Tamiflu IV fluids have been discontinued Falls/abnormal head CT/suspected early dementia perhaps vascular in nature- multiple falls of unknown etiology over the last month. Does not sound cardiac in nature, there is been no syncope. She does have significant rheumatoid arthritis and is on chronic steroids so perhaps she could have steroid-induced myopathy and/or weakness. Neurology concurs. There is the abnormal CT of the head with questionable hemorrhage in the cande that is stable on repeat CT scan. MRI of the brain does not show any abnormality area and is likely therefore consistent with calcification. -PT/OT recommend SNF placement -Consult neurology appreciated-also recommend EMG as an outpatient and follow- up with neurology for dementia formal evaluation HTN -stable -cont Verapamil Factor V Leiden - does not take anticoagulation normally due to history of extensive bruising on Coumadin and patient choice RA - cont daily prednisone, no need for stress dose steroids right now-consider rheumatology referral as an outpatient to try to get off of chronic steroids GERD-worsened by Tamiflu currently-resolved -Continue PPI twice daily -Continue Zantac 150 millirems p.o. twice daily -Maalox as needed Chronic pain and arthritis pain- takes hydrocodone as needed, Valium as needed-caution with falls and these medications in the elderly -Continue Cymbalta and gabapentin FEN-hypokalemia -Replaced-resolved potassium orally Continue Oliva as per patient and family's request for now but explained increased risk of infection and will remove today Prophylaxis-SCDs, Lovenox given no intracerebral hemorrhage Full code Disposition-to SNF tomorrow
[2017-08-25] MEDS ORDERED: NURSING VERBAL MED ORDER ONE (20:00)
[2017-08-25] MEDS: PRAMIPEXOLE DIHYDROCHLORIDE 0.25MG TAB PO SCH (20:36)
[2017-08-25] MEDS: VERAPAMIL HCL 240 MG TABCR PO SCH (20:37)
[2017-08-25 21:02] LABS: INR 0.9 (0.9-1.1)
[2017-08-25] MEDS: DICLOFENAC SOD 1% GEL 100 GM TUBE EXT SCH (21:18)
[2017-08-26] MEDS: ENOXAPARIN 40 MG/0.4 ML SYR SQ SCH (05:50)
[2017-08-26 07:12] VITALS: PULSE 63; O2SAT 91
[2017-08-26] MEDS: ALBUTEROL 0.083% NEBU SOLN 3 ML VIAL INH SCH ×2 (07:12→19:09)
[2017-08-26 08:00] VITALS: O2SAT 92
--- NOTE | 2017-08-26 08:04 | Neurology Progress Notes ---
Neurology Progress Note Date of Service Aug 26, 2017. Subjective Patient has no complaint of pain or headache. She still feels weak as before. Nursing reports no new events or problems overnight or this morning. MRI of the brain was obtained and revealed significant generalized atrophy with hydrocephalus ex vacuo as well as mild to moderate old small vessel ischemic changes scattered in the deep white matter bilaterally. I reviewed these films and report. Objective Date Time Temp Pulse Resp B/P (MAP) Pulse Ox O2 Delivery O2 Flow Rate FiO2 08/26/17 07:12 63 16 91 Room Air 08/26/17 00:00 Room Air 08/25/17 23:31 36.7 72 16 154/60 (91) 95 Room Air 08/25/17 18:53 59 16 95 Room Air 08/25/17 16:00 93 Room Air 08/25/17 14:31 72 16 97 Room Air 08/25/17 14:06 37.0 62 18 121/69 (86) 93 Room Air 08/25/17 11:33 68 16 95 Room Air 08/25/17 08:00 94 Room Air Last 24 Hours Test 08/25/17 20:38 Prothrombin Time 9.5 SECONDS Prothromb Time International Ratio 0.9 Imaging: MRI OF THE BRAIN WITHOUT AND WITH IV CONTRAST CLINICAL HISTORY: Frequent falls. Headache. Possible pontine hemorrhage. COMPARISON STUDY: MRI of the brain August 09, [address] August 24, 2017. TECHNIQUE: Utilizing a 1.5 Meena magnet and dedicated coil, multiplanar, multiecho imaging of the brain was performed pre and postcontrast administration. IV administration of 7 mL of Gadavist contrast was uneventful. FINDINGS: There are no foci of restricted diffusion. No acute intracranial hemorrhage, midline shift or mass effect is present. Moderate atrophy is noted. This accounts for mild ventricular dilatation. The basilar cisterns are patent. There are no extra-axial collections. Flow-voids for the major intracranial vessels are present. There is no intracranial mass or pathologic enhancement. The punctate hyperdense focus within the cande shown on head CT is not evident on this exam. No pontine abnormality is present on this exam. White matter T2 hyperintense foci suggest moderate small vessel disease. Calvarial signal is maintained. There is mild mucosal thickening of the ethmoid sinuses. IMPRESSION: 1. No acute intracranial findings. 2. No intracranial mass or pathologic enhancement. Exam: Patient is awake and alert. Speech is without aphasia or dysarthria. Mood and affect are normal and appropriate. She has cognitive and memory issues as before. Extraocular eye muscles are intact without nystagmus. There are no involuntary movements noted and she has no ataxia with [id number] testing. Current Inpatient Medications Medications (Trade) Dose Ordered Sig/Bruce Route Start Time Stop Time Status Last Admin Dose Admin Albuterol Sulfate (Ventolin 0.083% 2.5MG/3ML Neb) 2.5 mg QIDR INH 08/24/17 08:00 09/23/17 07:59 08/26/17 07:12 2.5 MG Diazepam (Valium Tab) 5 mg TID PRN PO 08/23/17 21:30 09/22/17 21:29 08/24/17 20:07 5 MG Duloxetine HCl (Cymbalta Cap) 30 mg DAILY PO 08/24/17 08:00 09/23/17 08:59 08/25/17 08:27 30 MG Acetaminophen/ Hydrocodone Bitart ([place]trim 10/325 Tab) 1 tab QID PRN PO 08/23/17 21:30 09/06/17 21:29 08/25/17 21:22 1 TAB Pantoprazole Sodium (Protonix Tab) 40 mg BID PO 08/24/17 08:00 09/23/17 08:59 08/25/17 20:37 40 MG Prednisone (PredniSONE TAB) 7.5 mg QAM PO 08/24/17 08:00 09/23/17 08:59 08/25/17 08:27 7.5 MG Verapamil HCl (Calan-Sr Tab) 240 mg QPM PO 08/24/17 21:00 09/23/17 20:59 08/25/17 20:37 240 MG Calcium/Vitamin D (Caltrate Plus Tab) 1 tab BID PO 08/24/17 08:00 09/23/17 08:59 08/25/17 20:36 1 TAB Cholecalciferol (Vitamin D Tab) 5,000 inter.unit QAM PO 08/24/17 08:00 09/23/17 08:59 08/25/17 08:27 5,000 INTER.UNIT Pramipexole Dihydrochloride (miraPEX TAB) 0.75 mg QPM PO 08/24/17 21:00 09/23/17 20:59 08/25/17 20:36 0.75 MG Al Hydrox/Mg Hydrox/Simethicone (Maalox Max Susp) 15 ml Q4H PRN PO 08/23/17 22:15 09/22/17 22:14 08/24/17 09:30 15 ML Magnesium Hydroxide (Milk Of Magnesia Susp) 30 ml Q6H PRN PO 08/23/17 22:15 09/22/17 22:14 Polyethylene (Miralax Powder Packet) 17 gm DAILY PRN PO 08/23/17 22:15 09/22/17 22:14 Ondansetron HCl (Zofran Inj) 4 mg Q6H PRN IV 08/23/17 22:15 09/22/17 22:14 Miscellaneous (Iv Fluids Completed) 1 ea PRN PRN N/A 08/23/17 23:00 08/23/18 22:59 Oseltamivir Phosphate (Tamiflu Cap) 75 mg BID PO 08/24/17 20:00 08/29/17 19:59 08/25/17 20:36 75 MG Ranitidine HCl (zANTac TAB) 150 mg BID PO 08/24/17 20:00 09/23/17 19:59 08/25/17 20:38 150 MG Gadobutrol (Gadavist) 7 mmol UD PRN IV 08/25/17 15:15 08/29/17 15:14 Enoxaparin Sodium (Lovenox Inj) 40 mg Q24H SQ 08/26/17 06:00 09/25/17 05:59 08/26/17 05:50 40 MG Diclofenac Sodium (Voltaren 1% Top Gel) 2 appln QID EXT 08/25/17 20:00 09/24/17 19:59 08/25/17 21:18 2 APPLN Albuterol Sulfate (Ventolin 0.083% 2.5MG/3ML Neb) 2.5 mg BIDR INH 08/26/17 20:00 09/25/17 19:59 UNV Impression 1. Abnormal CT scan of the head. I believe this punctate lesion in the left central cande is consistent with a bit of calcium. I do not believe there is any evidence of hemorrhage and she does not have any acute symptoms correlating to this area of the brainstem on exam or by history. MRI is more compatible with calcium as well. 2. Memory dysfunction She has a mild dementia, likely vascular. This, Incorporated with her urinary incontinence and balance issues could indicate normal pressure hydrocephalus. 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 Weakness She has a proximal weakness consistent with a myopathy. 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 This coupled with her significant arthritis is likely affecting her gait. She is probably falling because of mechanical issues. 4. Depression This is situational but needs attention. 5. Significant rheumatoid arthritis and possible lupus on chronic steroid use. She is off Plaquenil. Plan 1. Consider EMG and nerve conduction studies of one arm and leg to evaluate for myopathy, neuropathy, or radiculopathy. This should be done as an outpatient. 2. Consider evaluation for her mood as this is affecting her general condition. I will defer this to her primary care physician. I will hold off on initiating any medication for dementia or mood at this time but we will reconsider as an outpatient. 5. Consider Rheumatology evaluation. The patient wishes to have another rheumatologic opinion. Again, this would be done as an outpatient. I have no further neurologic recommendations to make at this time. Please contact me if I can be of further assistance on this case. I can follow as an outpatient.
[2017-08-26 08:05] VITALS: BP 129/60; PULSE 72; TEMP 36.5; O2SAT 92
[2017-08-26] MEDS: CALCIUM 600MG + VIT D 400 IU TAB PO SCH ×2 (08:13→20:38)
[2017-08-26] MEDS: CHOLECALCIFEROL 1000 INTER.UNIT TAB PO SCH (08:13)
[2017-08-26] MEDS: PANTOprazole SOD 40 MG TAB PO SCH ×2 (08:13→20:39)
[2017-08-26] MEDS: OSELTAMIVIR PHOSPHATE 75 MG CAP PO SCH ×2 (08:13→20:40)
[2017-08-26] MEDS: RANITIDINE HCL 150 MG TAB PO SCH ×2 (08:13→20:39)
[2017-08-26] MEDS: DULOXETINE (CYMBALTA) 30 MG CAP PO SCH (08:13)
[2017-08-26] MEDS: DICLOFENAC SOD 1% GEL 100 GM TUBE EXT SCH ×4 (08:13→20:37)
[2017-08-26] MEDS: HYDROCODONE/ACETAMI 10/325 TAB PO PRN ×2 (08:48→15:57)
[2017-08-26 15:16] VITALS: BP 144/78; PULSE 74; TEMP 36.5; O2SAT 96
[2017-08-26 19:09] VITALS: PULSE 75; O2SAT 93
[2017-08-26] MEDS: VERAPAMIL HCL 240 MG TABCR PO SCH (20:39)
[2017-08-26] MEDS: PRAMIPEXOLE DIHYDROCHLORIDE 0.25MG TAB PO SCH (20:40)
[2017-08-26] MEDS: DIAZEPAM 5MG TAB PO PRN (20:47)
--- NOTE | 2017-08-26 23:53 | Hospitalist Progress Note ---
Hospitalist Progress Note Date of Service Aug 26, 2017. Subjective Pt evaluation today including: conversation w/ patient Pt feeling even better. Still some cough, appetite improving, no headache. All Other Systems: Reviewed and Negative Objective Vital Signs Date Time Temp Pulse Resp B/P (MAP) Pulse Ox O2 Delivery O2 Flow Rate FiO2 08/26/17 19:09 75 16 93 Room Air 08/26/17 16:00 Room Air 08/26/17 15:16 36.5 74 16 144/78 (100) 96 Room Air 08/26/17 08:05 36.5 72 20 129/60 (83) 92 Room Air 08/26/17 08:00 92 Room Air 08/26/17 07:12 63 16 91 Room Air 08/26/17 00:00 Room Air Physical Exam Notes: Physical Exam General Appearance: WD/WN, no apparent distress Eyes: normal inspection, sclerae normal ENT: + pertinent finding (hard of hearing) Neck: trachea midline Respiratory/Chest: no respiratory distress, no accessory muscle use, + crackles (At the bases bilaterally) Cardiovascular: regular rate, rhythm, no edema, no murmur Abdomen: normal bowel sounds, non tender, soft Extremities: no pedal edema, no calf tenderness, + pertinent finding (Ulnar deviation of the hands in the MCP and PIP joints bilaterally) Neurologic/Psychiatric: alert, mood good today Skin: normal color, warm/dry, no rash Assessment and Plan This patient is a 77 y/o F Hx HTN, HPL, Factor V Leiden mutation not on anticoagulation, questionable TIA, RA on chronic steroids, chronic pain, and ROGERIO. Presents with nausea, vomiting, diarrhea, frequent falls falls over the last month, acute confusion and cough. The diarrhea and vomiting had occurred one day prior and have resolved. She was found on the floor on the day of admission next to her bed where she had fallen and could not get up. She could not recall suffering any head trauma. This is reportedly her 4th fall in the past month. Her daughter also states that during the same time period she appeared to be exhibiting periods of confusion and perhaps cognitive decline. The pt was febrile on arrival to the ER. Initial labs are notable for a positive rapid flu. A CT head was obtained. There is a question of a punctate pontine hemorrhage vs an area of calcification. Influenza A, lower respiratory infection/acute metabolic encephalopathy-fairly stable from this aspect. Encephalopathy seems to have resolved. She is not hypoxic and her chest x-ray does not show evidence of pneumonia. -Continue 5 day course of Tamiflu today day 3/5 IV fluids have been discontinued Falls/abnormal head CT/suspected early dementia perhaps vascular in nature- multiple falls of unknown etiology over the last month. Does not sound cardiac in nature, there is been no syncope. She does have significant rheumatoid arthritis and is on chronic steroids so perhaps she could have steroid-induced myopathy and/or weakness. Neurology concurs. There is the abnormal CT of the head with questionable hemorrhage in the cande that is stable on repeat CT scan. MRI of the brain does not show any abnormality in that area and is likely therefore consistent with calcification. Has generalized atrophy, no evidence of NPH -PT/OT recommend SNF placement -Consult neurology appreciated-also recommend EMG to assess for myopathy as an outpatient and follow-up with neurology for dementia (possibly vascular type) formal evaluation HTN -stable -cont Verapamil Factor V Leiden - does not take anticoagulation normally due to history of extensive bruising on Coumadin and patient choice RA - cont daily prednisone, no need for stress dose steroids right now-consider rheumatology referral as an outpatient to try to get off of chronic steroids GERD-worsened by Tamiflu currently-resolved -Continue PPI twice daily -Continue Zantac 150 millirems p.o. twice daily -Maalox as needed Chronic pain and arthritis pain- takes hydrocodone as needed, Valium as needed-caution with falls and these medications in the elderly -Continue Cymbalta and gabapentin FEN-hypokalemia -Replaced-resolved potassium orally dcd Perez Prophylaxis-SCDs, Lovenox given no intracerebral hemorrhage Full code Disposition-to SNF tomorrow
[2017-08-27 00:41] VITALS: BP 151/84; PULSE 63; TEMP 36.9; O2SAT 93
[2017-08-27] MEDS: ENOXAPARIN 40 MG/0.4 ML SYR SQ SCH (06:37)
[2017-08-27] MEDS: ALBUTEROL 0.083% NEBU SOLN 3 ML VIAL INH SCH (07:09)
[2017-08-27 07:15] VITALS: PULSE 57; O2SAT 96
[2017-08-27 07:55] VITALS: BP 138/62; PULSE 56; TEMP 36.8; O2SAT 97
[2017-08-27 08:00] VITALS: O2SAT 97
[2017-08-27] MEDS: DULOXETINE (CYMBALTA) 30 MG CAP PO SCH (08:44)
[2017-08-27] MEDS: RANITIDINE HCL 150 MG TAB PO SCH (08:44)
[2017-08-27] MEDS: CHOLECALCIFEROL 1000 INTER.UNIT TAB PO SCH (08:44)
[2017-08-27] MEDS: OSELTAMIVIR PHOSPHATE 75 MG CAP PO SCH (08:45)
[2017-08-27] MEDS: CALCIUM 600MG + VIT D 400 IU TAB PO SCH (08:45)
[2017-08-27] MEDS: PANTOprazole SOD 40 MG TAB PO SCH (08:45)
[2017-08-27] MEDS: HYDROCODONE/ACETAMI 10/325 TAB PO PRN (08:46)
[2017-08-27] MEDS: DICLOFENAC SOD 1% GEL 100 GM TUBE EXT SCH ×2 (08:46→11:07)
[2017-08-27] MEDS ORDERED: TMF75 PO (09:55)
[2017-08-27] MEDS ORDERED: VLTG EXT (09:55)
[2017-08-27] MEDS ORDERED: ZNT150 PO (09:55)
[2017-08-27] MEDS ORDERED: HYDR-4079 PO (09:55)
[2017-08-27] MEDS ORDERED: DIAZ-165 PO (09:55)
--- NOTE | 2017-08-27 10:06 | Discharge Instructions ---
Discharge Instructions Date of Service Aug 27, 2017. Admission Reason for Admission: Fall, Influenza A Discharge Discharge Diagnosis / Problem: Influenza A, fall Discharge Goals Goal(s): Improve disease control, Diagnostic testing, Therapeutic intervention Activity Recommendations Activity Level: Assistance Required Therapies: Physical Therapy, Occupational Therapy Exercise/Sports Limitations: gradually increase as tolerated Shower/Bathe: no limitations . Additional Information Patient informed of condition: Yes Advance Directives: Yes DNR: No Level of Care: Skilled Communicable Disease: Yes (Influenza a) Prognosis: Stable Oxygen at (LPM): NA Oliva Catheter: No Instructions / Follow-Up Instructions / Follow-Up This patient is a 77 y/o F Hx HTN, HPL, Factor V Leiden mutation not on anticoagulation, questionable TIA history, RA on chronic steroids, chronic pain , and ROGERIO not on CPAP. Presents with nausea, vomiting, diarrhea, frequent falls falls over the last month, acute confusion and cough. The diarrhea and vomiting had occurred one day prior and have resolved. She was found on the floor on the day of admission next to her bed where she had fallen and could not get up. She could not recall suffering any head trauma. This is reportedly her 4th fall in the past month. Her daughter also states that during the same time period she appeared to be exhibiting periods of confusion and perhaps cognitive decline. The pt was febrile on arrival to the ER. Initial labs are notable for a positive rapid flu. A CT head was obtained. There was a question of a punctate pontine hemorrhage vs an area of calcification on head CT which was ruled out on MRI brain. Influenza A, lower respiratory infection/acute metabolic encephalopathy-fairly stable from this aspect. Encephalopathy seems to have resolved. She is not hypoxic and her chest x-ray does not show evidence of pneumonia. -Continue 5 day course of Tamiflu today day 4/5 IV fluids have been discontinued Falls/abnormal head CT/suspected early dementia perhaps vascular in nature- multiple falls of unknown etiology over the last month. Does not sound cardiac in nature, there is been no syncope. She does have significant rheumatoid arthritis and is on chronic steroids so perhaps she could have steroid-induced myopathy and/or weakness. Neurology concurs. There is the abnormal CT of the head with questionable hemorrhage in the cande that is stable on repeat CT scan. MRI of the brain does not show any abnormality in that area and is likely therefore consistent with calcification. Has generalized atrophy, no evidence of NPH -PT/OT recommend SNF placement -Consult neurology appreciated-also recommend EMG to assess for myopathy as an outpatient and follow-up with neurology for dementia (possibly vascular type) formal evaluation within 1 month HTN -stable -cont Verapamil Factor V Leiden - does not take anticoagulation normally due to history of extensive bruising on Coumadin and patient choice RA - cont daily prednisone, no need for stress dose steroids right now-consider rheumatology referral as an outpatient to try to get off of chronic steroids GERD-worsened by Tamiflu currently-resolved -Continue PPI twice daily -Continue Zantac 150 millirems p.o. twice daily as needed -Maalox as needed Chronic pain and arthritis pain- takes hydrocodone as needed, Valium as needed-caution with falls and these medications in the elderly -Continue Cymbalta -Continue Voltaren gel as is working well for her [id number] -Replaced- Stable for discharge to SNF today Current Hospital Diet Patient's current hospital diet: AHA Diet (Heart Healthy) Discharge Diet Recommended Diet: AHA Diet (Heart Healthy) Procedures Procedures Performed: CT head 2 Brain MRI Chest x-ray Pending Studies Studies pending at discharge: yes List of pending studies: Final blood culture results Physician Orders On Transfer Special Precautions: Fall risk IV Therapy: NA Vital Signs: Routine Weigh: Routine Additional Orders: Follow-up with neurology within 1 month POLST Discussion: Not Applicable Medical Emergencies . Who to Call and When: Medical Emergencies: If at any time you feel your situation is an emergency, please call 911 immediately. . Non-Emergent Contact Non-Emergency issues call your: Primary Care Provider Call Non-Emergent contact if: you have a fever, temperature is above 100.5, your pain is not controlled, your pain is worsening, your pain is unusual for you, your pain is concerning you, you have any medication questions . . "Provider Documentation" section prepared by Lor Horowitz. . Core Measure Problem Core Measures: None [place] Drug Monitoring Program Search Results: patient reviewed within database (Attempted to review in the database and the website is down)
[2017-08-27 10:22] VITALS: BP 138/62; PULSE 56; TEMP 36.8; O2SAT 97
--- NOTE | 2017-08-27 10:27 | Discharge Summary ---
Discharge Summary Date of Service Aug 27, 2017. 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 GERD Hypokalemia Immunizations: Have You Had Influenza Vaccine: Yes History of Tetanus Vaccine?: Unknown History of Pneumococcal: Unknown History of Hepatitis B Vaccine: Unknown Procedures: Brain MRI CT head 2 Chest x-ray Consultations: Neurology Medication Reconciliation New Medications: Diclofenac Sod (Voltaren) 100 Appln/100 Gm Gel 2 APPLN EXT QID for 30 Days Oseltamivir Phosphate (Tamiflu) 75 Mg Cap 75 MG PO BID for 1 Day, #2 CAP Ranitidine HCl (Ranitidine HCl) 150 Mg Tab 150 MG PO BID PRN for heartburn for 30 Days, TAB Continued Medications: Albuterol Hfa (Ventolin Hfa) 200 Puffs/86595 Mcg Aers 2 PUFFS INH QID, #1 INHALER Albuterol Sulf (Proventil 0.083% 2.5MG/3ML) 2.5 Mg/3 Ml Nebu 2.5 MG INH QID, EA Calcium Carbonate (Calcium) 600 Mg Tab 600 MG PO BID Cholecalciferol (Vitamin D) 5,000 Unit Tab 1 TAB PO QAM Diazepam (Valium) 5 Mg Tab 5 MG PO TID PRN for Muscle Spasms for 2 Days, #6 TAB (This prescription has been renewed) Duloxetine HCl (Duloxetine HCl) 30 Mg Cap 30 MG PO DAILY Furosemide (Lasix) 20 Mg Tab 20 MG PO DAILY PRN for EDEMA, TAB Hydrocodone/Acetaminophen 10MG/325MG ([place] 10MG/325MG) Tab 1 TAB PO QID PRN for Pain for 2 Days, #8 TAB (This prescription has been renewed ) PRN PAIN Multivitamin (Multivitamin) Tab 1 TAB PO QAM Pantoprazole (Protonix) 40 Mg Tab 40 MG PO BID Pramipexole Dihydrochloride (Pramipexole Dihydrochlori) 0.75 Mg Tab 0.75 MG PO QPM, #90 Prednisone (Prednisone) 5 Mg Tab 7.5 MG PO QAM, TAB Verapamil HCl (Verapamil HCl ER) 240 Mg Tabcr 240 MG PO QPM, #90 Zoledronic Acid (Reclast) 5 Mg/100 Ml Inj 5 MG INJ UD Discontinued Medications: Gabapentin (Gabapentin) 100 Mg Cap 100 MG PO UD Discharge Exam Feeling well, cough is improved, right shoulder is hurting more the last few days due to her arthritis and she strained it reaching for the covers. No chest pain or shortness of breath. Physical Exam General Appearance: WD/WN, no apparent distress, sitting in chair Eyes: normal inspection, sclerae normal ENT: + pertinent finding (hard of hearing) Neck: trachea midline Respiratory/Chest: no respiratory distress, no accessory muscle use clear to auscultation, breathing unlabored Cardiovascular: regular rate, rhythm, no edema, no murmur Abdomen: normal bowel sounds, non tender, soft Extremities: no pedal edema, no calf tenderness, + pertinent finding (Ulnar deviation of the hands in the MCP and PIP joints bilaterally, right shoulder with positive tenderness to palpation anteriorly and into the right trapezius, significant crepitus in the right shoulder and right elbow with any range of motion with significant pain, no swelling or erythema, there is a surgical scar over the anterior shoulder; left antecubital area with mild erythema and palpable venous cord consistent with thrombophlebitis) Neurologic/Psychiatric: alert, mood good today Skin: normal color, warm/dry, no rash except mild thrombophlebitis with erythema in the left antecubital fossa Review of Systems: Constitutional: No problem reported Eyes: No problem reported ENT: No problem reported Respiratory: + cough Cardiovascular: No chest pain Abdomen: No pain Musculoskeletal: + joint pain Genitourinary - Female: No problem reported Neurologic: + weakness Psychiatric: No problem reported Endocrine: No problem reported Hematologic / Lymphatic: No problem reported Integumentary: No problem reported Hospital Course This patient is a 77 y/o F Hx HTN, HPL, Factor V Leiden mutation not on anticoagulation, questionable TIA history, RA on chronic steroids, chronic pain , and ROGERIO not on CPAP. Presents with nausea, vomiting, diarrhea, frequent falls falls over the last month, acute confusion and cough. The diarrhea and vomiting had occurred one day prior and have resolved. She was found on the floor on the day of admission next to her bed where she had fallen and could not get up. She could not recall suffering any head trauma. This is reportedly her 4th fall in the past month. Her daughter also states that during the same time period she appeared to be exhibiting periods of confusion and perhaps cognitive decline. The pt was febrile on arrival to the ER. Initial labs are notable for a positive rapid flu. A CT head was obtained. There was a question of a punctate pontine hemorrhage vs an area of calcification on head CT which was ruled out on MRI brain. Influenza A, lower respiratory infection/acute metabolic encephalopathy-fairly stable from this aspect. Encephalopathy seems to have resolved. She is not hypoxic and her chest x-ray does not show evidence of pneumonia. -Continue 5 day course of Tamiflu today day 4/5 IV fluids have been discontinued Falls/abnormal head CT/suspected early dementia perhaps vascular in nature- multiple falls of unknown etiology over the last month. Does not sound cardiac in nature, there is been no syncope. She does have significant rheumatoid arthritis and is on chronic steroids so perhaps she could have steroid-induced myopathy and/or weakness. Neurology concurs. There is the abnormal CT of the head with questionable hemorrhage in the cande that is stable on repeat CT scan. MRI of the brain does not show any abnormality in that area and is likely therefore consistent with calcification. Has generalized atrophy, no evidence of NPH -PT/OT recommend SNF placement -Consult neurology appreciated-also recommend EMG to assess for myopathy as an outpatient and follow-up with neurology for dementia (possibly vascular type) formal evaluation within 1 month HTN -stable -cont Verapamil Factor V Leiden - does not take anticoagulation normally due to history of extensive bruising on Coumadin and patient choice RA - cont daily prednisone, no need for stress dose steroids right now-consider rheumatology referral as an outpatient to try to get off of chronic steroids GERD-worsened by Tamiflu currently-resolved -Continue PPI twice daily -Continue Zantac 150 millirems p.o. twice daily as needed -Maalox as needed Chronic pain and arthritis pain-with acute on chronic right shoulder pain takes hydrocodone as needed, Valium as needed-caution with falls and these medications in the elderly -Continue Cymbalta -Continue Voltaren gel as is working well for her -Cool compresses to the right shoulder 3 times daily -Orthopedics follow-up if persists [id number] -Replaced- Left antecubital fossa superficial thrombophlebitis-warm compresses recommended Stable for discharge to SNF today Total Time Spent: Greater than 30 minutes This includes examination of the patient, discharge planning, medication reconciliation, and communication with other providers. Discharge Instructions Please refer to the electronic Patient Visit Report (Discharge Instructions) for additional information. Follow-Up With neurology within 1 month With PCP after discharge from SNF With orthopedic surgery as needed With rheumatology routinely Additional Copies To Manuel Crum M.D.
[2017-08-27 10:35] VITALS: O2SAT 97
== END 2017-08-27 11:10 | DRG 193 ==
LOC: EDBD 17:00 → C.EDB 17:02 → C.4E 22:14 → ENRESERV 22:29 → OBSVTOIN 08-25 19:05
PROVIDERS: ADMIT Internal Medicine; ATTEND Family Medicine
DX: J10.1 Influenza due to other identified influenza virus with other respiratory manifestations (principal); G93.41 Metabolic encephalopathy; D68.51 Activated protein C resistance; G72.0 Drug-induced myopathy; F11.20 Opioid dependence, uncomplicated; J22 Unspecified acute lower respiratory infection; T38.0X5A Adverse effect of glucocorticoids and synthetic analogues, initial encounter; R29.6 Repeated falls; R90.89 Other abnormal findings on diagnostic imaging of central nervous system; F01.50 Vascular dementia, unspecified severity, without behavioral disturbance, psychotic disturbance, mood disturbance, and anxiety; E87.6 Hypokalemia; I10 Essential (primary) hypertension; M06.9 Rheumatoid arthritis, unspecified; K21.9 Gastro-esophageal reflux disease without esophagitis; G89.29 Other chronic pain; G25.81 Restless legs syndrome; F32.9 Major depressive disorder, single episode, unspecified; Z86.73 Personal history of transient ischemic attack (TIA), and cerebral infarction without residual deficits; Z86.2 Personal history of diseases of the blood and blood-forming organs and certain disorders involving the immune mechanism; Z79.52 Long term (current) use of systemic steroids; Z79.83 Long term (current) use of bisphosphonates; Z79.899 Other long term (current) drug therapy; Z91.040 Latex allergy status; Z88.0 Allergy status to penicillin; Z88.8 Allergy status to other drugs, medicaments and biological substances; Z90.710 Acquired absence of both cervix and uterus; Z98.49 Cataract extraction status, unspecified eye; Z98.890 Other specified postprocedural states; Z82.3 Family history of stroke; Z83.3 Family history of diabetes mellitus; Z82.49 Family history of ischemic heart disease and other diseases of the circulatory system

== ENCOUNTER → 2017-11-05 | Outpatient (CLI) | payer BC, OTHER ==
[~2017-11-05] MED LIST changes: -ASPI81TA28 PO; -BACL10TA PO; +CYM30 PO; +FURO-85 PO; -GABA-113 PO; +HYDR-4079 PO; +PANT1TAB3 PO; -PARO1TAB27 PO; -PRED1SUS3 OPR; +TMF75 PO; +VLTG EXT; +ZNT150 PO; +ZOLE5INJ INJ
== END | disposition home or self-care (01) ==
LOC: C.LABBFT 14:34
PROVIDERS: ATTEND Physician Assistant Medical
DX: R39.9 Unspecified symptoms and signs involving the genitourinary system (principal)

== ENCOUNTER → 2017-11-05 | Outpatient (CLI) | payer BC, OTHER ==
[2017-11-05 12:15] LABS: BASO % 0.6 %; BASO ABS # 0.04 K/uL (0-0.2); EOS % 1.5 %; HEMATOCRIT 41.9 % (37-47); IG# 0.02 K/uL (0.00-0.02); LYMPH % 13.6 %; LYMPH ABS # 0.93 K/uL (1.2-3.4); MEAN CELL VOLUME 94.8 fL (80-100); MEAN CORPUSCULAR HEMOGLOBIN 31.7 pg (25-34); MEAN CORPUSCULAR HGB CONC 33.4 g/dl (32-36); MEAN PLATELET VOLUME 10.1 fL (7.4-10.4); MONO % 6.4 %; MONO ABS # 0.44 K/uL (0.11-0.59); NEUT % 77.6 %; NEUT ABS # 5.31 K/uL (1.4-6.5); PLATELET COUNT 225 K/uL (130-400); RED CELL DISTRIBUTION WIDTH CV 13.7 % (11.5-14.5); RED CELL DISTRIBUTION WIDTH SD 47.8 fL (36.4-46.3); WHITE BLOOD COUNT 6.84 K/uL (4.8-10.8)
[2017-11-05 12:39] LABS: ALBUMIN 4.1 gm/dl (3.4-5.0); BLOOD UREA NITROGEN 16 mg/dl (7-18); CALCIUM 9.4 mg/dl (8.5-10.1); CARBON DIOXIDE 32 mmol/L (21-32); CREATININE 0.83 mg/dl (0.60-1.20); GLUCOSE 110 mg/dl (70-99); SODIUM 138 mmol/L (136-145)
[2017-11-05 12:42] LABS: ALKALINE PHOSPHATASE 74 U/L (45-117); ALT/SGPT 19 U/L (12-78); AST/SGOT 17 U/L (15-37); TOTAL PROTEIN 7.5 gm/dl (6.4-8.2)
== END | disposition home or self-care (01) ==
LOC: C.LABBFT 10:04
PROVIDERS: ATTEND Physician Assistant Medical
DX: R60.9 Edema, unspecified (principal); R63.1 Polydipsia

== ENCOUNTER → 2017-11-11 | Outpatient (CLI) | payer BC ==
[2017-11-12 06:23] LABS: HEMOGLOBIN A1C 6.9 % (4.5-5.6)
== END | disposition home or self-care (01) ==
LOC: C.LABBFT 12:29
PROVIDERS: ATTEND Internal Medicine
DX: E11.9 Type 2 diabetes mellitus without complications (principal)

== ENCOUNTER → 2018-01-17 | Outpatient (CLI) | payer BC ==
[~2018-01-17] MED LIST changes: +ANT25 PO; +ASPI-461 PO; +CARB25TA2 PO; +CEFU1TAB35 PO; +CHOL1CAP74 PO; -CHOL1TAB42 PO; -CYM30 PO; -DIAZ-165 PO; -HYDR-4079 PO; +LPT40 PO; -MULT-506 PO; +PARO1TAB29 PO; -TMF75 PO; +VLM5 PO; -VNTHFA/IN INH; -ZNT150 PO
== END | disposition home or self-care (01) ==
LOC: C.LABSPEC 17:11
PROVIDERS: ATTEND Nurse Practitioner Family
DX: N39.46 Mixed incontinence (principal)

== ENCOUNTER 2018-09-09 21:02 | Observation (INO) ==
[2018-09-09 21:31] LABS: Basophils # (auto) 0.01 K/uL (0-0.2); Basophils % (auto) 0.1 %; Eosinophils # (auto) 0.04 K/uL (0-0.5); Eosinophils % (auto) 0.5 %; Hematocrit (blood only) 37.8 % (37-47); Hemoglobin 12.6 g/dL (12.0-16.0); Immature Granulocytes % (auto) 1.1 %; Lymphocytes # (auto) 1.05 K/uL (1.2-3.4); Mean Corpuscular Hgb Conc 33.3 g/dL (32-36); Mean Corpuscular Volume 95.5 fL (80-100); Mean Platelet Volume 9.7 fL (7.4-10.4); Monocytes # (auto) 0.96 K/uL (0.11-0.59); Neutrophils # (auto) 6.58 K/uL (1.4-6.5); Neutrophils % (auto) 75.3 %; Platelet Count 250 K/uL (130-400); RDW Coefficient of Variation 15.9 % (11.5-14.5); RDW Standard Deviation 55.5 fL (36.4-46.3); Red Blood Count 3.96 M/uL (4.2-5.4); White Blood Count 8.74 K/uL (4.8-10.8)
[2018-09-09 21:48] LABS: Albumin Level 3.9 gm/dl (3.4-5.0); BUN Creatinine Ratio 21.4 (10-20); Calcium 9.5 mg/dl (8.5-10.1); Creatinine Clr Calc Pharmacy 42.1 ml/min; Est GFR (African American) 65.2; Est GFR (Non-African American) 56.2; Potassium 3.8 mmol/L (3.5-5.1)
[2018-09-09 21:49] LABS: Albumin Globulin Ratio 1.3 (0.9-2); Bilirubin,Total 0.3 mg/dl (0.2-1); Globulin 3.1 gm/dl (2.5-4.0)
[2018-09-09 22:05] LABS: Appearance Urine Clear (Clear); Bacteria Urine Automated Negative (Negative); Bilirubin Urine Negative (Negative); Blood Urine Negative (Negative); Color Urine Dark Yellow; Glucose Urine UA 2+ (Negative); Ketones Urine 1+ (Negative); Leukocyte Esterase Urine Negative (Negative); Nitrite Urine Negative (Negative); Protein Urine 1+ (Negative); RBC Urine Automated 0-4 /hpf (0-4); Specific Gravity Urine 1.031 (1.000-1.030); Urobilinogen Urine Negative (Negative)
[2018-09-09] MEDS ORDERED: SODIUM CHLORIDE 0.9% 1000ML 500 ML IV ONE (22:12)
[2018-09-09 22:17] LABS: Mucus Urine Present (None Prsent)
[2018-09-09] MEDS ORDERED: cefTRIAXone SODIUM 1,000 MG/50 ML BAG IV STA (23:36)
--- NOTE | 2018-09-09 23:57 | Emergency Department Note ---
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 additionally lactic acid is mildly elevated. She will be admitted/observed and her is in agreement with the plan. Impression & Plan Metabolic encephalopathy, UTI (urinary tract infection), Agitation, Vascular dementia Discharge Plan Visit Data *Final* Discharge Date/Time: 09/10/18 02:38 Chief Complaint: Illness Stated Complaint: MENTAL STATUS CHANGE ED Provider: Lang Escobar Discharge Problem: Metabolic encephalopathy, UTI (urinary tract infection), Agitation, Vascular dementia Patient Disposition: Admitted As Inpatient Discharge Instructions Interventions: ED Discharge Assessment Last Done: 09/10/18 02:38 The scribe's documentation has been prepared under my direction and personally reviewed by me in its entirety. I confirm that the note above accurately reflects all work, treatment, procedures, and medical decision making performed by me.
--- NOTE | 2018-09-10 00:14 | CT Scan Report ---
CT SCAN OF THE BRAIN WITHOUT IV CONTRAST CLINICAL HISTORY: Change in mental status. COMPARISON STUDY: CT of the brain dated 07/28/2018. TECHNIQUE: Unenhanced axial CT scan of the brain is performed from the vertex to the skull base. A do se lowering technique was utilized adhering to the principles of ALARA. CT DOSE: 537.48 mGy.cm FINDINGS: Brain parenchyma: There are age-related involutional changes noting moderate subcortical and periven tricular microangiopathic change. There is no hemorrhage, mass effect, or evidence of acute territori al ischemia by CT criteria. Blue-white matter differentiation is preserved. No extra-axial fluid dmitriy ection is seen. A small calcification in the cande is unchanged. Ventricles, sulci, cisterns: Prominent secondary to involutional change. Intracranial vasculature: There is atherosclerotic calcification of the cavernous carotid and vertebr al arteries. Calvarium: Unremarkable. Sinuses and mastoids: The visualized paranasal sinuses are clear. The mastoid air cells are well pneu matized. Orbits: There is chronic deformity of the right orbital floor. The bony orbits are otherwise grossly intact. There are bilateral ocular lens implants. IMPRESSION: There is no hemorrhage, mass effect, or evidence of acute territorial ischemia by CT samantha crouch. Electronically signed by: Elia Junior M.D. 09/10/2018 12:12 AM
[2018-09-10 00:21] LABS: Magnesium 1.4 mg/dl (1.8-2.4)
--- NOTE | 2018-09-10 00:52 | XRay Report ---
SINGLE VIEW CHEST CLINICAL HISTORY: Change in mental status. FINDINGS: An AP, portable, upright chest radiograph is compared to study dated 07/08/2018 and correlat ed with chest CT dated 04/14/2018. The examination is degraded by portable technique, apical lordotic positioning, and patient rotation. The heart is top normal for projection, and there is atheroscler otic calcification of the thoracic aorta. A hiatal hernia is observed. Chronic interstitial thickenin g is similar to previous. There is mild bibasilar atelectasis. No airspace consolidation or large ple ural effusion is identified. No pneumothorax is seen. The skeletal structures are osteopenic. The bon y thorax is grossly intact. IMPRESSION: No active disease in the chest. Electronically signed by: Elia Junior M.D. 09/10/2018 12:51 AM
[2018-09-10] MEDS ORDERED: NSS + 20MEQ KCL 20 MEQ/1,000 ML BAG IV ONE ×2 (01:09→04:00)
--- NOTE | 2018-09-10 02:14 | History & Physical Report ---
Date of Service September 10, 2018 Assessment & Plan (1) Agitation: History of dementia Mild clinical dehydration on examination given lactic acidosis and increased serum creatinine. Complicated UTI, history of overactive bladder as per records, ongoing Bactrim Rx, patient not septic hypertension, slight elevated history of TIA on Aggrenox SLE/rheumatoid arthritis on chronic steroid Rx past history DVT/factor V Leiden mutation DM 2 on oral meds, reasonable control as of recent outpatient hemoglobin A1c of 7.6 last June 2018 RLS on Sinemet and pramipexole OBS GMF Zyprexa as needed IVF, follow lactic acid IV Ceftriaxone for complicated UTI Basal insulin, ISS BG goal 140-180, carb count coverage PT OT eval Return to [facility] in 24 to 48 hours if patient agitation manageable DVT prophylaxis Lovenox subcu DNR as per patient's previous wishes as per , Mr. Caleb Chau. (Contact #[phone]) History of Present Illness Chief Complaint: Agitation as per records Primary Care Provider: [facility] History obtained from patient, family, and records. Limited history from patient secondary to dementia. Medical history significant for dementia, hypertension, history of TIA as per records, SLE/rheumatoid arthritis on chronic steroid Rx, history DVT/factor V Leiden mutation as per records, DM 2 on oral meds, restless leg syndrome. Recent confinement June 2018 for TIA symptoms. Patient discharged on Aggrenox Rx. Patient noted to be agitated yesterday at the [facility]. Not acting like herself as per records. Currently undergoing treatment for Bactrim sensitive E. coli/Klebsiella UTI. Patient denies chest pain, S OB, headache, abdominal pain, diarrhea, dysuria. Does not know why she is in the hospital. Medical History as above Surgical History : Hysterectomy, shoulder surgery, cataract surgery Family History : Stroke, heart disease, diabetes Personal/Social history : Non-smoker, no EtOH intake, assisted living facility resident Allergies Allergy/AdvReac Type Severity Reaction Status Date / Time Penicillins Allergy Intermediate HIVES Verified 09/09/18 22:33 adhesive Allergy Unknown SKIN Verified 09/09/18 22:33 REDNESS AND IRRITATION latex Allergy Unknown PATIENT Verified 09/09/18 22:33 UNSURE tolterodine AdvReac Intermediate GI SYMPTOMS Verified 09/09/18 22:33 Home Medications Home Medications Medication Instructions Recorded Confirmed Type Lidocaine Patch Otc 1 patch TOPICAL DAILY PRN 09/09/18 09/09/18 History acetaminophen 500 mg PO Q4 PRN 09/09/18 09/09/18 History albuterol sulfate [Ventolin HFA] 2 puff INHALATION Q6H PRN 09/09/18 09/09/18 History aspirin-dipyridamole [Aggrenox] 1 tab PO Q12 09/09/18 09/09/18 History atorvastatin [Lipitor] 40 mg PO DAILY 09/09/18 09/09/18 History carbidopa-levodopa [Sinemet] 0.5 tab PO BID 09/09/18 09/09/18 History celecoxib [Celebrex] 200 mg PO BID 09/09/18 09/09/18 History cholecalciferol (vitamin D3) 5,000 unit PO DAILY 09/09/18 09/09/18 History [Vitamin D3] ferrous sulfate 325 mg PO BIDM 09/09/18 09/09/18 History furosemide [Lasix] 20 mg PO DAILY PRN 09/09/18 09/09/18 History gabapentin [Neurontin] 100 mg PO HS 09/09/18 09/09/18 History guar gum 4 g PO BID 09/09/18 09/09/18 History losartan [Cozaar] 25 mg PO DAILY 09/09/18 09/09/18 History meclizine 12.5 mg PO BID PRN 09/09/18 09/09/18 History metformin [Glucophage] 500 mg PO BIDM 09/09/18 09/09/18 History mirabegron [Myrbetriq] 25 mg PO HS 09/09/18 09/09/18 History pantoprazole 20 mg PO BID 09/09/18 09/09/18 History paroxetine HCl 40 mg PO DAILY 09/09/18 09/09/18 History pramipexole 0.75 mg PO HS 09/09/18 09/09/18 History prednisone 2.5 mg PO DAILY 09/09/18 09/09/18 History sodium chloride 1 g PO TID 09/09/18 09/09/18 History verapamil [Calan SR] 240 mg PO HS 09/09/18 09/09/18 History Past Med/Surg History Social History Preferred Language: [place] Communication Ability: 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 Beliefs That Will Affect Care: None marital status: Current Living Situation: Retirement Feels Safe at Home: Yes Safety Concerns: Feels Safe At This Time Smoking Status: Never smoker Hx Alcohol Use: No Hx Substance Use: No Review of Systems Could not be reliably obtained Physical Exam Vital Signs (Past 24 Hours): Last Vital Signs Temp 36.6 C 09/09/18 21:10 Pulse 91 H 09/10/18 00:06 Resp 20 09/10/18 00:06 BP 152/79 H 09/10/18 00:06 Pulse Ox 96 09/10/18 00:06 Physical Exam: GENERAL: Comfortable, demented, follows some commands, no respiratory distress SKIN: Normal color, warm HEENT: Bespectacled, pink palpebral conjunctivae, no ptosis, dry buccal mucosa NECK : Supple, no tenderness CHEST : CTA, no tenderness HEART : RRR, no obvious murmurs ABDOMEN: Some distention, nontender EXTREMITIES : No LE swelling, minimal tenderness right knee, no other conspicuous deformities noted NEUROLOGIC : Demented, no facial asymmetry, gait and stance not assessed Results & Data Laboratory Results Laboratory Results WBC 8.74 K/uL (4.8-10.8) 09/09/18 21:15 RBC 3.96 M/uL (4.2-5.4) L 09/09/18 21:15 Hgb 12.6 g/dL (12.0-16.0) 09/09/18 21:15 Hct 37.8 % (37-47) 09/09/18 21:15 MCV 95.5 fL (80-100) 09/09/18 21:15 MCH 31.8 pg (25-34) 09/09/18 21:15 MCHC 33.3 g/dL (32-36) 09/09/18 21:15 RDW Std Deviation 55.5 fL (36.4-46.3) H 09/09/18 21:15 RDW Coeff of Sugar 15.9 % (11.5-14.5) H 09/09/18 21:15 Plt Count 250 K/uL (130-400) 09/09/18 21:15 MPV 9.7 fL (7.4-10.4) 09/09/18 21:15 Immature Gran % (Auto) 1.1 % 09/09/18 21:15 Neut % (Auto) 75.3 % 09/09/18 21:15 Lymph % (Auto) 12.0 % 09/09/18 21:15 [place] % (Auto) 11.0 % 09/09/18 21:15 Eos % (Auto) 0.5 % 09/09/18 21:15 Baso % (Auto) 0.1 % 09/09/18 21:15 Immature Gran # (Auto) 0.10 K/uL (0.00-0.02) H 09/09/18 21:15 Neut # (Auto) 6.58 K/uL (1.4-6.5) H 09/09/18 21:15 Lymph # (Auto) 1.05 K/uL (1.2-3.4) L 09/09/18 21:15 [place] # (Auto) 0.96 K/uL (0.11-0.59) H 09/09/18 21:15 Eos # (Auto) 0.04 K/uL (0-0.5) 09/09/18 21:15 Baso # (Auto) 0.01 K/uL (0-0.2) 09/09/18 21:15 Sodium 138 mmol/L (136-145) 09/09/18 21:15 Potassium 3.8 mmol/L (3.5-5.1) 09/09/18 21:15 Chloride 101 mmol/L (98-107) 09/09/18 21:15 Carbon Dioxide 26 mmol/L (21-32) 09/09/18 21:15 Anion Gap 12.0 (3-11) H 09/09/18 21:15 BUN 21 mg/dl (7-18) H 09/09/18 21:15 Creatinine 0.96 mg/dl (0.6-1.2) D 09/09/18 21:15 Est Cr Clr Drug Dosing 42.1 ml/min 09/09/18 21:15 Est GFR ( Amer) 65.2 09/09/18 21:15 Est GFR (Non-Af Amer) 56.2 09/09/18 21:15 BUN/Creatinine Ratio 21.4 (10-20) H 09/09/18 21:15 Glucose 150 mg/dl (70-99) H 09/09/18 21:15 POC Glucose 142 (70-99) H 09/09/18 21:47 Lactate 2.6 mmol/L (0.4-2.0) H* 09/09/18 23:02 Calcium 9.5 mg/dl (8.5-10.1) 09/09/18 21:15 Magnesium 1.4 mg/dl (1.8-2.4) L 09/09/18 21:15 Total Bilirubin 0.3 mg/dl (0.2-1) 09/09/18 21:15 AST 20 U/L (15-37) 09/09/18 21:15 ALT 15 U/L (12-78) 09/09/18 21:15 Alkaline Phosphatase 157 U/L (45-117) H 09/09/18 21:15 Total Protein 7.0 gm/dl (6.4-8.2) 09/09/18 21:15 Albumin 3.9 gm/dl (3.4-5.0) 09/09/18 21:15 Globulin 3.1 gm/dl (2.5-4.0) 09/09/18 21:15 Albumin/Globulin Ratio 1.3 (0.9-2) 09/09/18 21:15 TSH 1.420 uIu/ml (0.300-4.500) 09/09/18 21:15 Specimen Hemolysis 09/09/18 21:15 Urine Color Dark Yellow 09/09/18 21:35 Urine Appearance Clear (Clear) 09/09/18 21:35 Urine pH 5.0 (4.5-7.5) 09/09/18 21:35 Ur Specific [place] 1.031 (1.000-1.030) H 09/09/18 21:35 Urine Protein 1+ (Negative) H 09/09/18 21:35 Urine Glucose (UA) 2+ (Negative) H 09/09/18 21:35 Urine Ketones 1+ (Negative) H 09/09/18 21:35 Urine Blood Negative (Negative) 09/09/18 21:35 Urine Nitrite Negative (Negative) 09/09/18 21:35 Urine Bilirubin Negative (Negative) 09/09/18 21:35 Urine Urobilinogen Negative (Negative) 09/09/18 21:35 Ur Leukocyte Esterase Negative (Negative) 09/09/18 21:35 Urine WBC (Auto) 1-5 /hpf (0-5) 09/09/18 21:35 Urine RBC (Auto) 0-4 /hpf (0-4) 09/09/18 21:35 U Hyaline Cast (Auto) 10-30 /lpf (0-5) H 09/09/18 21:35 U Epithel Cells (Auto) 10-20 /lpf (0-5) H 09/09/18 21:35 Urine Bacteria (Auto) Negative (Negative) 09/09/18 21:35 Urine Mucus Present (None Prsent) H 09/09/18 21:35 Diagnostic Findings Chest x-ray showed no acute pathology EKG as per my interpretation : Rate 100, NSR, incomplete RBBB, diffuse T wave flattening/inversion CT head: No hemorrhage, no mass-effect
[2018-09-10] MEDS ORDERED: CARBOHYDRATES FOR HYPOGLYCEMIA PO PRN (03:57)
[2018-09-10] MEDS ORDERED: TRAMADOL HCL 50 MG TABLET PO PRN (03:57)
[2018-09-10] MEDS ORDERED: ACETAMINOPHEN 325 MG TAB PO PRN ×2 (03:57)
[2018-09-10] MEDS ORDERED: PROCHLORPERAZINE 5 MG in SYRINGE 4 ML IV PRN (03:57)
[2018-09-10] MEDS ORDERED: DEXTROSE 50% 50 ML SYRINGE IV PRN (03:57)
[2018-09-10] MEDS ORDERED: OLANZapine 10 MG/2.1 ML SDV IM PRN (03:57)
[2018-09-10] MEDS ORDERED: GLUCAGON FOR INJ 1 MG VIAL SQ PRN (03:57)
[2018-09-10] MEDS ORDERED: GLUCOSE 10 TABS/TUBE PO PRN (03:57)
[2018-09-10] MEDS ORDERED: GLUCOSE 40% GEL 15 GM TUBE PO PRN (03:57)
[2018-09-10] MEDS ORDERED: INSULIN GLARGINE SOLOSTAR 100 UNITS/ML 3 ML PEN SC STA (03:57)
[2018-09-10] MEDS: MAGNESIUM SULFATE / D5W 1 GM/100 ML BAG IV SCH ×3 (04:25→06:37)
[2018-09-10] MEDS: INSULIN ASPART 100 UNITS/ML 3 ML PEN SC SCH ×5 (04:32→21:49)
[2018-09-10 04:53] LABS: Basophils # (auto) 0.03 K/uL (0-0.2); Basophils % (auto) 0.4 %; Eosinophils # (auto) 0.11 K/uL (0-0.5); Eosinophils % (auto) 1.4 %; Hematocrit (blood only) 33.9 % (37-47); Hemoglobin 11.3 g/dL (12.0-16.0); Immature Granulocytes # (auto) 0.08 K/uL (0.00-0.02); Lymphocytes # (auto) 1.58 K/uL (1.2-3.4); Lymphocytes % (auto) 20.5 %; Mean Corpuscular Hgb Conc 33.3 g/dL (32-36); Mean Corpuscular Volume 95.8 fL (80-100); Mean Platelet Volume 9.2 fL (7.4-10.4); Monocytes % (auto) 11.7 %; Neutrophils # (auto) 4.99 K/uL (1.4-6.5); Platelet Count 206 K/uL (130-400); RDW Coefficient of Variation 15.9 % (11.5-14.5); RDW Standard Deviation 55.9 fL (36.4-46.3); Red Blood Count 3.54 M/uL (4.2-5.4); White Blood Count 7.69 K/uL (4.8-10.8)
[2018-09-10 05:09] LABS: BUN Creatinine Ratio 21.6 (10-20); Calcium 8.2 mg/dl (8.5-10.1); Creatinine Clr Calc Pharmacy 58.5 ml/min; Est GFR (Non-African American) 82.8; Potassium 4.1 mmol/L (3.5-5.1)
[2018-09-10] MEDS: LOSARTAN POTASSIUM 25 MG TAB PO SCH (08:06)
[2018-09-10] MEDS: ATORVASTATIN 40 MG TAB PO SCH (08:06)
[2018-09-10] MEDS: DIPYRIDAMOLE/ASPIRIN CAP PO SCH ×2 (08:06→21:50)
[2018-09-10] MEDS: FERROUS SULFATE 325 MG TAB PO SCH ×2 (08:06→18:10)
[2018-09-10] MEDS: PANTOprazole 40 MG TAB PO SCH ×2 (08:07→21:50)
[2018-09-10] MEDS: PARoxetine HCl 20 MG TAB PO SCH (08:07)
[2018-09-10] MEDS: predniSONE 2.5 MG TAB PO SCH (08:07)
[2018-09-10] MEDS: SODIUM CHLORIDE 1 GM TABLET PO SCH ×3 (08:08→21:51)
[2018-09-10] MEDS: CARBIDOPA/LEVODOPA 25/100MG TAB PO SCH ×2 (08:08→21:50)
--- NOTE | 2018-09-10 17:07 | Hospitalist Progress Note ---
Date of Service September 10, 2018 Assessment & Plan (1) Agitation: H/O Dementia CT head:There is no hemorrhage, mass effect, or evidence of acute territorial ischemia by CT criteria. No agitation since hospitalization Reorient patient frequently to avoid delirium Zyprexa PRN Mild dehydration Received IV fluids Monitor renal function Lactic acidosis Likely due to Metformin, Dehydration Lactate levels improved Received IV fluids Hold Metformin for now Complicated UTI H/O overactive bladder Ongoing Bactrim Rx--Hold Recent Urine Culture:Pansensitive E.Coli, Klebsiella Continue Rocephin Hypertension slightly elevated Continue home meds Monitor H/O TIA Continue Aggrenox, Lipitor SLE/rheumatoid arthritis On chronic Prednsione Continue home meds H/O DVT/factor V Leiden mutation Not on anticoagulation DM II: Last A1C:7.6 in Jun 2018 Hold PO meds Continue ISS RLS on Sinemet and pramipexole DVT Px: Lovenox SQ Code Status DNR Disposition: PT/OT Return to [facility] Subjective Patient is seen and examined at bedside No agitation noted as per staff Offers no complaints Denies chest pain, SOB, dizziness, dysuria No family at bedside Oriented to person and place only Physical Exam Vital Signs (Past 24 Hours): Last Vital Signs Temp 36.7 C 09/10/18 15:34 Pulse 77 09/10/18 15:34 Resp 18 09/10/18 15:34 BP 159/81 H 09/10/18 15:34 Pulse Ox 98 09/10/18 15:34 Physical Exam: Physical Exam: Vitals signs as noted above General Appearance:Moderately built and nourished, no apparent distress Head: normocephalic, Atraumatic Eyes: normal inspection, EOMI Neck: supple, Trachea midline Respiratory/Chest: Normal breath sounds, CTA Cardiovascular: S1, S2, No murmur Abdomen/GI:Soft, Non tender, Bowel sounds present Extremities/Musculoskelatal:normal inspection, 1+ B/L LE edema Neurologic/Psych:AAOX3, grossly no focal neurological deficits Skin: normal color, warm Results & Data Laboratory Results Short CBC 09/09/18 09/10/18 Range/Units 21:15 04:40 WBC 8.74 7.69 (4.8-10.8) K/uL Hgb 12.6 11.3 L (12.0-16.0) g/dL Hct 37.8 33.9 L (37-47) % Plt Count 250 206 (130-400) K/uL BMP 09/09/18 09/10/18 21:15 04:40 Sodium 138 139 Potassium 3.8 4.1 Chloride 101 106 Carbon Dioxide 26 27 BUN 21 H 15 Creatinine 0.96 D 0.69 Glucose 150 H 127 H Calcium 9.5 8.2 L Liver Function 09/09/18 09/10/18 Range/Units 21:15 04:46 Total Bilirubin 0.3 (0.2-1) mg/dl AST 20 (15-37) U/L ALT 15 (12-78) U/L Alkaline Phosphatase 157 H (45-117) U/L Albumin 3.9 3.3 L (3.4-5.0) gm/dl Urine 09/09/18 Range/Units 21:35 Urine Color Dark Yellow Urine Appearance Clear (Clear) Urine pH 5.0 (4.5-7.5) Ur Specific [place] 1.031 H (1.000-1.030) Urine Protein 1+ H (Negative) Urine Glucose (UA) 2+ H (Negative)
[2018-09-10] MEDS ORDERED: PRAMIPEXOLE DIHYDROCHLO 0.25 MG TAB PO SCH (21:00)
[2018-09-10] MEDS ORDERED: cefTRIAXone SODIUM 1,000 MG in DEXTROSE 5% 50 ML IV SCH (21:00)
[2018-09-10] MEDS ORDERED: GABAPENTIN 100 MG CAP PO SCH (21:00)
[2018-09-10] MEDS ORDERED: VERAPAMIL HCL 240 MG TABCR PO SCH (21:00)
[2018-09-11 06:51] LABS: BUN Creatinine Ratio 12.8 (10-20); Creatinine Clr Calc Pharmacy 60.3 ml/min; Est GFR (African American) 96.9; Est GFR (Non-African American) 83.6
[2018-09-11] MEDS: SODIUM CHLORIDE 1 GM TABLET PO SCH ×2 (07:42→13:39)
[2018-09-11] MEDS: CARBIDOPA/LEVODOPA 25/100MG TAB PO SCH (07:42)
[2018-09-11] MEDS: PANTOprazole 40 MG TAB PO SCH (07:43)
[2018-09-11] MEDS: ATORVASTATIN 40 MG TAB PO SCH (07:43)
[2018-09-11] MEDS: LOSARTAN POTASSIUM 25 MG TAB PO SCH (07:44)
[2018-09-11] MEDS: DIPYRIDAMOLE/ASPIRIN CAP PO SCH (07:44)
[2018-09-11] MEDS: PARoxetine HCl 20 MG TAB PO SCH (07:44)
[2018-09-11] MEDS: predniSONE 2.5 MG TAB PO SCH (07:45)
[2018-09-11] MEDS: FERROUS SULFATE 325 MG TAB PO SCH (07:45)
[2018-09-11 08:22] VITALS: BP 146/76; TEMP 97.9; O2SAT 95
[2018-09-11] MEDS ORDERED: ENOXAPARIN INJ 40 MG/0.4 ML SYR SQ SCH (09:00)
[2018-09-11] MEDS ORDERED: INSULIN GLARGINE SOLOSTAR 100 UNITS/ML 3 ML PEN SC SCH (09:00)
[2018-09-11] MEDS: INSULIN ASPART 100 UNITS/ML 3 ML PEN SC SCH ×2 (09:24→12:39)
[2018-09-11] MEDS ORDERED: CEFDINIR 125 MG/5 ML 60 ML BTL PO SCH (11:45)
[2018-09-11] MEDS ORDERED: CEFDINIR 300 MG CAP PO SCH (13:00)
[2018-09-11 14:16] VITALS: PULSE 82
--- NOTE | 2018-09-11 14:21 | Hospitalist Progress Note ---
Date of Service September 11, 2018 Assessment & Plan (1) Agitation: H/O Dementia CT head:There is no hemorrhage, mass effect, or evidence of acute territorial ischemia by CT criteria. No agitation since hospitalization Reorient patient frequently to avoid delirium Zyprexa PRN Mild dehydration Received IV fluids Monitor renal function Lactic acidosis Likely due to Metformin, Dehydration Lactate levels normalized Received IV fluids Hold Metformin for now Complicated UTI H/O overactive bladder Ongoing Bactrim Rx--Hold Recent Urine Culture:Pansensitive E.Coli, Klebsiella Continue Rocephin>>>Transitioned to Omnicef Hypertension BP labile Continue home meds Monitor H/O TIA Continue Aggrenox, Lipitor SLE/rheumatoid arthritis On chronic Prednsione Continue home meds H/O DVT/factor V Leiden mutation Not on anticoagulation DM II: Last A1C:7.6 in Jun 2018 Hold PO meds Continue ISS RLS on Sinemet and pramipexole DVT Px: Lovenox SQ Code Status DNR Disposition: PT/OT prior to discharge Subjective Patient is seen and examined at bedside No recurrence of agitation States feeling well Offers no complaints Denies chest pain, SOB, dizziness, dysuria Forgetful at times due to vascular dementia Physical Exam Vital Signs (Past 24 Hours): Last Vital Signs Temp 36.6 C 09/11/18 08:00 Pulse 78 09/11/18 08:00 Resp 18 09/11/18 08:00 BP 146/76 H 09/11/18 08:00 Pulse Ox 95 09/11/18 08:00 Physical Exam: Physical Exam: Vitals signs as noted above General Appearance:Moderately built and nourished, no apparent distress Head: normocephalic, Atraumatic Eyes: normal inspection, EOMI Neck: supple, Trachea midline Respiratory/Chest: Normal breath sounds, CTA Cardiovascular: S1, S2, No murmur Abdomen/GI:Soft, Non tender, Bowel sounds present Extremities/Musculoskelatal:normal inspection, 1+ B/L LE edema Neurologic/Psych:AAOX3, grossly no focal neurological deficits Skin: normal color, warm Results & Data Laboratory Results [facility] 09/11/18 05:13 Sodium 137 Potassium 4.0 Chloride 102 Carbon Dioxide 31 BUN 9 D Creatinine 0.67 Glucose 105 H Calcium 8.0 L
--- NOTE | 2018-09-11 14:32 | Discharge Summary ---
Date of Service September 11, 2018 Admission HPI Per Admitting Provider History obtained from patient, family, and records. Limited history from patient secondary to dementia. Medical history significant for dementia, hypertension, history of TIA as per records, SLE/rheumatoid arthritis on chronic steroid Rx, history DVT/factor V Leiden mutation as per records, DM 2 on oral meds, restless leg syndrome. Recent confinement June 2018 for TIA symptoms. Patient discharged on Aggrenox Rx. Patient noted to be agitated yesterday at the [facility]. Not acting like herself as per records. Currently undergoing treatment for Bactrim sensitive E. coli/Klebsiella UTI. Patient denies chest pain, S OB, headache, abdominal pain, diarrhea, dysuria. Does not know why she is in the hospital. Medical History as above Surgical History : Hysterectomy, shoulder surgery, cataract surgery Family History : Stroke, heart disease, diabetes Personal/Social history : Non-smoker, no EtOH intake, assisted living facility resident Admission Exam Per Admitting Provider GENERAL: Comfortable, demented, follows some commands, no respiratory distress SKIN: Normal color, warm HEENT: Bespectacled, pink palpebral conjunctivae, no ptosis, dry buccal mucosa NECK : Supple, no tenderness CHEST : CTA, no tenderness HEART : RRR, no obvious murmurs ABDOMEN: Some distention, nontender EXTREMITIES : No LE swelling, minimal tenderness right knee, no other conspicuous deformities noted NEUROLOGIC : Demented, no facial asymmetry, gait and stance not assessed Principal Diagnosis Discharge Information Discharge Diagnosis Agitation Dehydration Ongoing UTI Discharge Goals Decrease discomfort,Improve disease control, Improve function Discharge Activity Limitations Resume your previous activity Discharge Data Allergies Allergy/AdvReac Type Severity Reaction Status Date / Time Penicillins Allergy Intermediate HIVES Verified 09/09/18 22:33 adhesive Allergy Unknown SKIN Verified 09/09/18 22:33 REDNESS AND IRRITATION latex Allergy Unknown PATIENT Verified 09/09/18 22:33 UNSURE tolterodine AdvReac Intermediate GI SYMPTOMS Verified 09/09/18 22:33 Consultations 09/09/18 23:37 ED Decision to Admit Stat 09/10/18 03:57 Consult Case Management - Discharge Planning Routine Procedures Performed CT head; There is no hemorrhage, mass effect, or evidence of acute territorial ischemia by CT criteria. CXR: No active disease in the chest. Ordered Studies 09/09/18 22:05 CT head/brain wo con Stat Hospital Course (1) Agitation: H/O Dementia CT head:There is no hemorrhage, mass effect, or evidence of acute territorial ischemia by CT criteria. No agitation since hospitalization Reorient patient frequently to avoid delirium Zyprexa PRN Mild dehydration Received IV fluids Monitor renal function Lactic acidosis Likely due to Metformin, Dehydration Lactate levels normalized Received IV fluids Hold Metformin for now Complicated UTI H/O overactive bladder Ongoing Bactrim Rx--Hold Recent Urine Culture:Pansensitive E.Coli, Klebsiella Continue Rocephin>>>Transitioned to Omnicef Hypertension BP labile Continue home meds Monitor H/O TIA Continue Aggrenox, Lipitor SLE/rheumatoid arthritis On chronic Prednsione Continue home meds H/O DVT/factor V Leiden mutation Not on anticoagulation DM II: Last A1C:7.6 in Jun 2018 Hold PO meds Continue ISS RLS on Sinemet and pramipexole DVT Px: Lovenox SQ Code Status DNR Disposition: PT/OT prior to discharge Total Time Total Time Spent Total Time Spent (In Minutes): 26 minutes Total Time Includes: Examination of the Patient, Discharge Planning, Medication Reconciliation and Other Discharge Plan Discharge Items Patient Disposition: Personal Snf Reason For Visit: AGITATION Discharge Diagnosis: Agitation Dehydration Ongoing UTI Discharge Goals: Decrease discomfort, Improve disease control and Improve function Activity: Resume your previous activity Exercise/Sports: Gradually increase as tolerated Non-emergency contact: Primary Care Provider Call non-emergency contact if: you have any medication questions, your symptoms worsen, your pain is not controlled, your pain is worsening, your pain is unusual for you, your pain is concerning for you, you have a fever and your temperature is above 100.5 Follow-up/Referrals: Rajinder Hough [Primary Care Provider] - Diet: Carb Consistent or DM2 and Heart Healthy Addtl Provider Instructions: Follow up with your Primary Care Physician in 1 week Complete the antibiotic course as prescribed Seek immediate medical attention if your symptoms reoccur or worsen Prescriptions: New cefdinir 300 mg capsule 300 mg PO BID 5 Days Qty: 10 RF: 0 Continued celecoxib [Celebrex] 200 mg capsule 200 mg PO BID RF: 0 pantoprazole 20 mg Tablet,Delayed Release (Dr/Ec) 20 mg PO BID RF: 0 atorvastatin [Lipitor] 40 mg tablet 40 mg PO DAILY RF: 0 metformin [Glucophage] 500 mg tablet 500 mg PO BIDM RF: 0 aspirin-dipyridamole [Aggrenox] 25-200 mg capsule, ER multiphase 12 hr 1 tab PO Q12 RF: 0 guar gum Powder 4 g PO BID RF: 0 sodium chloride 1 gram tablet 1 g PO TID RF: 0 meclizine 12.5 mg tablet 12.5 mg PO BID PRN (Reason: dizzyness) RF: 0 acetaminophen 500 mg Tablet 500 mg PO Q4 PRN (Reason: Fever Or Pain) RF: 0 prednisone 2.5 mg Tablet 2.5 mg PO DAILY RF: 0 ferrous sulfate 325 mg (65 mg iron) tablet 325 mg PO BIDM RF: 0 losartan [Cozaar] 25 mg tablet 25 mg PO DAILY RF: 0 verapamil [Calan SR] 240 mg tablet extended release 240 mg PO HS RF: 0 furosemide [Lasix] 20 mg Tablet 20 mg PO DAILY PRN (Reason: leg swelling/wt gain 3 lbs in ) RF: 0 gabapentin [Neurontin] 100 mg capsule 100 mg PO HS RF: 0 albuterol sulfate [Ventolin HFA] 90 mcg/actuation Hfa Aerosol Inhaler 2 puff INHALATION Q6H PRN (Reason: Wheezing) RF: 0 paroxetine HCl 40 mg Tablet 40 mg PO DAILY RF: 0 carbidopa-levodopa [Sinemet] 25-100 mg tablet 0.5 tab PO BID RF: 0 pramipexole 0.75 mg Tablet 0.75 mg PO HS RF: 0 cholecalciferol (vitamin D3) [Vitamin D3] 5,000 unit Tablet 5,000 unit PO DAILY RF: 0 Myrbetriq 25 mg tablet extended release 24 hr 25 mg PO HS RF: 0 Lidocaine Patch Otc 1 patch topical DAILY PRN (Reason: Pain) RF: 0 Stand-Alone Forms: [facility] Discharge Orders: Discharge Order (Routine); Ordered 09/11/18 Ordered By: Haseeb Tsai Admission Data Admit Date/Time: 09/10/18 02:18 Attending Provider: Haseeb Tsai Admit Provider: Kai Ansari Primary Care Provider: Rajinder Hough Other Providers: Kai Ansari Service: Medical Other Interventions: Discharge Summary Assessment (RN) Last Done: 09/11/18 14:14 Pending Studies at Discharge: No DC Date/Time DO NOT enter until pt leaves facility: 09/11/18 15:12
== END 2018-09-11 15:12 | disposition home or self-care (01) ==
LOC: 4E 21:02 → ED 21:02 → SUATTDRO 09-10 02:18 → 4E 09-10 02:38

== ENCOUNTER 2019-02-26 22:00 | Inpatient (IN) ==
[2019-02-26] MEDS ORDERED: SODIUM CHLORIDE 0.9% 1000ML 500 ML IV ONE (22:18)
--- NOTE | 2019-02-26 22:40 | XRay Report ---
XR chest 1V portable HISTORY: Sepsis COMPARISON: Chest 09/10/2018. FINDINGS: No pneumothorax. The right lung is clear. The heart is normal in size. Retrocardiac lucency favors a moderate hiatus hernia. Left basilar densities and a left pleural effusion are new from the prior study. The bones are osteopenic. Degenerative changes within the right shoulder. IMPRESSION: 1. Small left pleural effusion and left basilar densities. This may represent atelectasis or pneumoni a. 2. Moderate to large hiatus hernia. Electronically signed by: Caleb Rizo M.D. 02/26/2019 10:38 PM
[2019-02-26 22:43] LABS: Appearance Urine Clear (Clear); Bilirubin Urine Negative (Negative); Blood Urine Negative (Negative); Color Urine Yellow; Glucose Urine UA Negative (Negative); Ketones Urine Trace (Negative); Leukocyte Esterase Urine Negative (Negative); Nitrite Urine Negative (Negative); Protein Urine Negative (Negative); Urobilinogen Urine Negative (Negative)
[2019-02-26 22:56] LABS: Basophils # (auto) 0.03 K/uL (0-0.2); Basophils % (auto) 0.6 %; Eosinophils % (auto) 3.7 %; Hematocrit (blood only) 36.2 % (37-47); Hemoglobin 12.2 g/dL (12.0-16.0); Immature Granulocytes # (auto) 0.02 K/uL (0.00-0.02); Immature Granulocytes % (auto) 0.4 %; Lymphocytes # (auto) 0.86 K/uL (1.2-3.4); Mean Corpuscular Hemoglobin 33.1 pg (25-34); Mean Corpuscular Hgb Conc 33.7 g/dL (32-36); Mean Corpuscular Volume 98.1 fL (80-100); Mean Platelet Volume 9.4 fL (7.4-10.4); Monocytes # (auto) 0.78 K/uL (0.11-0.59); Monocytes % (auto) 14.5 %; Neutrophils # (auto) 3.48 K/uL (1.4-6.5); Neutrophils % (auto) 64.8 %; Platelet Count 229 K/uL (130-400); RDW Coefficient of Variation 13.2 % (11.5-14.5); RDW Standard Deviation 47.1 fL (36.4-46.3); Red Blood Count 3.69 M/uL (4.2-5.4); White Blood Count 5.37 K/uL (4.8-10.8)
[2019-02-26 23:08] LABS: Partial Thromboplastin Time 27.9 Seconds (21.0-31.0); Prothrombin Time 10.1 Seconds (9.0-12.0)
[2019-02-26 23:15] LABS: Alanine Aminotransferase 17 U/L (12-78); Albumin Level 3.2 gm/dl (3.4-5.0); Aspartate Aminotransferase 18 U/L (15-37); BUN Creatinine Ratio 26.7 (10-20); Blood Urea Nitrogen 20 mg/dl (7-18); Calcium 9.2 mg/dl (8.5-10.1); Carbon Dioxide 27 mmol/L (21-32); Chloride 102 mmol/L (98-107); Creatinine Clr Calc Pharmacy 52.5 ml/min; Est GFR (African American) 88.7; Est GFR (Non-African American) 76.5; Glucose 164 mg/dl (70-99); Potassium 3.3 mmol/L (3.5-5.1); Sodium 138 mmol/L (136-145)
[2019-02-26 23:19] LABS: Albumin Globulin Ratio 0.9 (0.9-2); Alkaline Phosphatase 85 U/L (45-117); Bilirubin,Total 0.3 mg/dl (0.2-1); Globulin 3.4 gm/dl (2.5-4.0); Total Protein 6.6 gm/dl (6.4-8.2); Troponin I < 0.015 ng/ml (0-0.045)
[2019-02-26] MEDS ORDERED: cefTRIAXone SODIUM 1,000 MG/50 ML BAG IV STA (23:47)
--- NOTE | 2019-02-27 00:03 | Emergency Department Note ---
Entered by Adriana Wright acting as a scribe for History of Present Illness General Chief complaint: Weakness Stated complaint: WEAKNESS Time Seen by Provider: 02/26/19 22:06 Source: patient History of Present Illness Onset (ago): week(s) 1 Pain Consistency: + constant Quality: + dull Exacerbated By: + movement Associated symptoms: + denies other symptoms (denies abdominal pain and urinary symptoms), + cough, + loss of appetite and + weakness; no chest pain, no fever/chills, no headaches and no shortness of breath The patient is a 79 year old female who presents to the Emergency Room with complaints of dull, generalized weakness that started about a week ago. The patient's usual caregivers had noticed her eating less and acting abnormal over the past week, which they reported to the daughter, who brought her mother to the ED. The patient complains of generalized weakness and a cough. Her daughter states that the patient is having trouble ambulating and communicating, and that she has not been eating normally. The patient denies falls, fever, shortness of breath, headache, chest pain, abdominal pain, or urinary symptoms. She has a history of arthritis and diabetes. Home Medications Home Medications Medication Instructions Recorded Confirmed Type acetaminophen 500 mg PO Q4 PRN MDD 3 GRAMS/24 09/09/18 02/26/19 History HOURS carbidopa-levodopa [Sinemet] 0.5 tab PO BID 09/09/18 02/26/19 History cholecalciferol (vitamin D3) 5,000 unit PO QAM 09/09/18 02/26/19 History [Vitamin D3] meclizine 12.5 mg PO BID PRN 09/09/18 02/26/19 History pantoprazole 20 mg PO BID 09/09/18 02/26/19 History paroxetine HCl 40 mg PO DAILY 09/09/18 02/26/19 History losartan 25 mg tablet 50 mg PO DAILY 11/01/18 02/26/19 History aspirin 25 mg-dipyridamole 200 mg 1 cap PO Q12 30 Days #30 cap 12/02/18 02/26/19 Rx capsule,ext.release 12 hr multiphase ferrous sulfate 325 mg (65 mg 325 mg PO BID 30 Days #60 tab 12/02/18 02/26/19 Rx iron) tablet sodium chloride 1 gram tablet 1 g PO TID 30 Days #90 tab 12/02/18 02/26/19 Rx hydrocodone 10 mg-acetaminophen 1 tab PO TID #90 tab 12/26/18 02/26/19 Rx 325 mg tablet fentanyl 25 mcg/hr transdermal 1 patch TD Q72H #10 ea 02/07/19 02/26/19 Rx patch gabapentin 100 mg capsule 100 mg PO HS #90 cap 02/07/19 02/26/19 Rx pramipexole 0.75 mg tablet 0.75 mg PO HS #90 tab 02/13/19 02/26/19 Rx verapamil ER (SR) 240 mg 240 mg PO DAILY #90 tab 02/16/19 02/26/19 Rx tablet,extended release atorvastatin 40 mg tablet 40 mg PO DAILY #90 tab 02/21/19 02/26/19 Rx lorazepam 0.5 mg tablet 0.5 mg PO Q8 PRN #30 tab 02/21/19 02/26/19 Rx metformin 500 mg tablet 500 mg PO BID #180 tab 02/24/19 02/26/19 Rx celecoxib 200 mg PO BID 02/26/19 02/26/19 History docusate sodium 100 mg PO BID PRN 02/26/19 02/26/19 History folic acid 1 mg PO DAILY 02/26/19 02/26/19 History furosemide [Lasix] 20 mg PO DIRECTED PRN 02/26/19 02/26/19 History lidocaine 1 patch TOPICAL DAILY 02/26/19 02/26/19 History mirabegron [Myrbetriq] 25 mg PO HS 02/26/19 02/26/19 History prednisone 1 mg PO BID 02/26/19 02/26/19 History sodium chloride 1,000 mg PO TID 02/26/19 02/26/19 History sodium phosphates [Fleet Enema] 118 ml GA DAILY PRN 02/26/19 02/26/19 History wheat dextrin [Benefiber Clear SF 1 packet PO BID 02/26/19 02/26/19 History (dextrin)] Allergies Allergy/AdvReac Type Severity Reaction Status Date / Time Penicillins Allergy Intermediate HIVES Verified 02/26/19 23:18 adhesive Allergy Unknown SKIN Verified 02/26/19 23:18 REDNESS AND IRRITATION latex Allergy Unknown PATIENT Verified 02/26/19 23:18 UNSURE tolterodine AdvReac Intermediate GI SYMPTOMS Verified 02/26/19 23:18 Past Med/Surg History Medical History Vitamin D deficiency (Acute) Urge and stress incontinence (Acute) Tremor (Acute) Steroid-induced osteoporosis (Acute) Restless legs syndrome (Acute) Oral thrush (Acute) Narcotic withdrawal (Acute) Iron deficiency anemia (Acute) Hyponatremia (Chronic) Hypertension (Acute) Hyperlipidemia (Acute) Hypercalciuria (Acute) Hyperactivity of bladder (Acute) Fracture of right orbital floor (Acute) Dupuytren's contracture (Acute) Diabetes mellitus, controlled (Acute) Depression (Acute) Cystocele, midline (Acute) Compression fracture of L1 lumbar vertebra (Acute) Cerebrovascular disease (Acute) Cataract, bilateral (Acute) Carpal tunnel syndrome (Acute) Carotid artery stenosis (Acute) C. difficile diarrhea (Acute) Aspiration pneumonia (Acute) Arteriosclerotic cardiovascular disease (ASCVD) (Acute) Vertigo Overactive bladder (Chronic) Opioid dependence Chronic pain Restless leg Rheumatoid arthritis Factor V Leiden (Acute) Fall from slip, trip, or stumble (Inactive) Cellulitis Chest pain Chronic steroid use Degenerative disc disease Hiatal hernia Metabolic encephalopathy Metabolic encephalopathy Osteoarthritis Systemic lupus erythematosus Toxic encephalopathy Transient ischemic attack (TIA) UTI (urinary tract infection) Surgical History History of cataract surgery Family History Father Stroke syndrome Mother Stroke syndrome Diverticulosis of colon Sister Parkinsons disease Brother Coronary heart disease Myocardial infarction COPD (chronic obstructive pulmonary disease) Other Family history non-contributory Social History Preferred Language: Yoruba Communication Ability: Effective Visual Impairment: Limited Hearing Ability: Normal Cigar Head Piercer Required: No Beliefs That Will Affect Care: None marital status: Current Living Situation: [facility] Feels Safe at Home: Yes Smoking Status: Never smoker Second Hand Exposure: No ; Hx Alcohol Use: No Hx Substance Use: No Review of Systems See HPI for pertinent positives & negatives. and A total of 10 systems reviewed and were otherwise negative Physical Exam Vital Signs Vital Signs - 24 hr 02/26/19 22:02 02/26/19 22:13 02/26/19 22:14 Temperature 36.7 C Temperature Source Oral Sepsis Recent Fever Within 48 Hours No Sepsis New/Unexplained Change in Mental Status Yes Sepsis Action Taken by Nursing No Action Required Pulse Rate 99 H Pulse Rate [Finger] 93 H Pulse Rhythm [Finger] Pulse Strength [Finger] Respiratory Rate 16 16 Respiratory Effort / Characteristics Non-Labored Spontaneous Respiratory Depth Normal Respiratory Pattern Blood Pressure 144/85 H Blood Pressure [Left Arm] 113/32 L Blood Pressure Mean 104 Blood Pressure Mean [Left Arm] 59 Blood Pressure Position Sitting Pulse Oximetry 92 93 93 Oxygen Delivery Method Room Air Room Air Room Air 02/26/19 22:49 02/26/19 23:21 02/27/19 01:02 Temperature Temperature Source Sepsis Recent Fever Within 48 Hours Sepsis New/Unexplained Change in Mental Status Sepsis Action Taken by Nursing Pulse Rate Pulse Rate [Finger] 86 83 Pulse Rhythm [Finger] Regular Regular Pulse Strength [Finger] Normal Normal Respiratory Rate 18 20 Respiratory Effort / Characteristics Non-Labored Spontaneous Non-Labored Spontaneous Respiratory Depth Normal Normal Respiratory Pattern Regular Regular Blood Pressure Blood Pressure [Left Arm] 133/95 133/69 Blood Pressure Mean Blood Pressure Mean [Left Arm] 107 90 Blood Pressure Position Pulse Oximetry 94 95 92 Oxygen Delivery Method Room Air Room Air General: Older female, sleepy but arousable, answers questions appropriately, in no respiratory distress. HEENT: Normal cephalic atraumatic. Pupils are equal round and reactive to light. Extraocular movements are intact. Oropharynx is pink with moist mucous membranes. No swelling of the mouth lips or tongue. Neck: Supple with a midline trachea. No meningeal signs or stiffness, no JVD or bruits. No Stridor. Chest: Clear to auscultation bilaterally. No wheezes or rhonchi. No increased work of breathing. Heart: regular rate and rhythm. Abdomen: Soft nontender, nondistended without rebound guarding or rigidity. Upper Extremities: Significant arthritic changes of hand bilaterally. Lower Extremities: She is able to wiggle her toes bilaterally with minimal movement of legs. The daughter says she does normally not ambulate and is usually weak in the legs. No cyanosis clubbing or edema. No calf tenderness or asymmetry Spine/Back. Non tender to palpation. No CVA tenderness Skin: Good turgor without rashes. Neurologic exam: Cranial nerves two through 12 are intact. Motor and sensation are intact and symmetrical throughout. Course : Past medical records reviewed. The patient was evaluated in room B07. A complete history and physical exam was performed. 2244: I rechecked on the patient, who seems calm and stable. She is getting her blood drawn. 2348: I again rechecked the patient, who was resting comfortably 2354: I discussed the patient with Anne Negron, [facility] hospitalist, who agrees to take over care of the patient for further evaluation. Administered Medications Discontinued Medications Sodium Chloride (Nss 1000ml) 500 mls @ 999 mls/hr IV .Q31M ONE Stop: 02/26/19 22:48 Last Infusion: 02/26/19 23:26 Dose: 0 mls/hr Documented by: [id number] Admin: 02/26/19 22:53 Dose: 999 mls/hr Documented by: [id number] Ceftriaxone Sodium (Rocephin) 1,000 mg in 50 mls @ 100 mls/hr IV NOW STA Stop: 02/27/19 00:16 Last Infusion: 02/27/19 00:48 Dose: 0 mls/hr Documented by: [id number] Admin: 02/27/19 00:05 Dose: 100 mls/hr Documented by: [id number] Medical Decision Making Differential Diagnosis Differential diagnosis includes but is not limited to: sepsis, CVA, pneumonia, UTI, electrolyte or metabolic abnormality. Medical Records Attestation: I reviewed the patient's medical records. Home Medications Current Medication List: was personally reviewed by me Laboratory Data Attestation: I reviewed the patient's lab results. Result diagrams: 02/26/19 22:45 02/26/19 22:45 Lab Results 02/26/19 02/26/19 02/26/19 Range/Units 22:25 22:45 22:45 WBC 5.37 (4.8-10.8) K/uL RBC 3.69 L (4.2-5.4) M/uL Hgb 12.2 (12.0-16.0) g/dL Hct 36.2 L (37-47) % MCV 98.1 (80-100) fL MCH 33.1 (25-34) pg MCHC 33.7 (32-36) g/dL RDW Std Deviation 47.1 H (36.4-46.3) fL RDW Coeff of Sugar 13.2 (11.5-14.5) % Plt Count 229 (130-400) K/uL MPV 9.4 (7.4-10.4) fL Immature Gran % (Auto) 0.4 % Neut % (Auto) 64.8 % Lymph % (Auto) 16.0 % [place] % (Auto) 14.5 % Eos % (Auto) 3.7 % Baso % (Auto) 0.6 % Immature Gran # (Auto) 0.02 (0.00-0.02) K/uL Neut # (Auto) 3.48 (1.4-6.5) K/uL Lymph # (Auto) 0.86 L (1.2-3.4) K/uL [place] # (Auto) 0.78 H (0.11-0.59) K/uL Eos # (Auto) 0.20 (0-0.5) K/uL Baso # (Auto) 0.03 (0-0.2) K/uL PT 10.1 (9.0-12.0) Seconds INR 1.0 (0.9-1.1) APTT 27.9 (21.0-31.0) Seconds PTT Ratio 1.0 Sodium (136-145) mmol/L Potassium (3.5-5.1) mmol/L Chloride (98-107) mmol/L Carbon Dioxide (21-32) mmol/L Anion Gap (3-11) BUN (7-18) mg/dl Creatinine (0.6-1.2) mg/dl Est Cr Clr Drug Dosing ml/min Est GFR ( Amer) Est GFR (Non-Af Amer) BUN/Creatinine Ratio (10-20) Glucose (70-99) mg/dl Lactate (0.4-2.0) mmol/L Calcium (8.5-10.1) mg/dl Total Bilirubin (0.2-1) mg/dl AST (15-37) U/L ALT (12-78) U/L Alkaline Phosphatase (45-117) U/L Troponin I (0-0.045) ng/ml Total Protein (6.4-8.2) gm/dl Albumin (3.4-5.0) gm/dl Globulin (2.5-4.0) gm/dl Albumin/Globulin Ratio (0.9-2) Procalcitonin (0-0.5) ng/ml Urine Color Yellow Urine Appearance Clear (Clear) Urine pH 5.0 (4.5-7.5) Ur Specific [place] 1.020 (1.000-1.030) Urine Protein Negative (Negative) Urine Glucose (UA) Negative (Negative) Urine Ketones Trace H (Negative) Urine Blood Negative (Negative) Urine Nitrite Negative (Negative) Urine Bilirubin Negative (Negative) Urine Urobilinogen Negative (Negative) Ur Leukocyte Esterase Negative (Negative) 02/26/19 02/26/19 02/26/19 Range/Units 22:45 22:45 22:45 WBC (4.8-10.8) K/uL RBC (4.2-5.4) M/uL Hgb (12.0-16.0) g/dL Hct (37-47) % MCV (80-100) fL MCH (25-34) pg MCHC (32-36) g/dL RDW Std Deviation (36.4-46.3) fL RDW Coeff of Sugar (11.5-14.5) % Plt Count (130-400) K/uL MPV (7.4-10.4) fL Immature Gran % (Auto) % Neut % (Auto) % Lymph % (Auto) % [place] % (Auto) % Eos % (Auto) % Baso % (Auto) % Immature Gran # (Auto) (0.00-0.02) K/uL Neut # (Auto) (1.4-6.5) K/uL Lymph # (Auto) (1.2-3.4) K/uL [place] # (Auto) (0.11-0.59) K/uL Eos # (Auto) (0-0.5) K/uL Baso # (Auto) (0-0.2) K/uL PT (9.0-12.0) Seconds INR (0.9-1.1) APTT (21.0-31.0) Seconds PTT Ratio Sodium 138 (136-145) mmol/L Potassium 3.3 L (3.5-5.1) mmol/L Chloride 102 (98-107) mmol/L Carbon Dioxide 27 (21-32) mmol/L Anion Gap 9.0 (3-11) BUN 20 H (7-18) mg/dl Creatinine 0.74 (0.6-1.2) mg/dl Est Cr Clr Drug Dosing 52.5 ml/min Est GFR ( Amer) 88.7 Est GFR (Non-Af Amer) 76.5 BUN/Creatinine Ratio 26.7 H (10-20) Glucose 164 H (70-99) mg/dl Lactate 3.3 H* (0.4-2.0) mmol/L Calcium 9.2 (8.5-10.1) mg/dl Total Bilirubin 0.3 (0.2-1) mg/dl AST 18 (15-37) U/L ALT 17 (12-78) U/L Alkaline Phosphatase 85 (45-117) U/L Troponin I < 0.015 (0-0.045) ng/ml Total Protein 6.6 (6.4-8.2) gm/dl Albumin 3.2 L (3.4-5.0) gm/dl Globulin 3.4 (2.5-4.0) gm/dl Albumin/Globulin Ratio 0.9 (0.9-2) Procalcitonin < 0.05 (0-0.5) ng/ml Urine Color Urine Appearance (Clear) Urine pH (4.5-7.5) Ur Specific [place] (1.000-1.030) Urine Protein (Negative) Urine Glucose (UA) (Negative) Urine Ketones (Negative) Urine Blood (Negative) Urine Nitrite (Negative) Urine Bilirubin (Negative) Urine Urobilinogen (Negative) Ur Leukocyte Esterase (Negative) 02/26/19 Range/Units 22:45 WBC (4.8-10.8) K/uL RBC (4.2-5.4) M/uL Hgb (12.0-16.0) g/dL Hct (37-47) % MCV (80-100) fL MCH (25-34) pg MCHC (32-36) g/dL RDW Std Deviation (36.4-46.3) fL RDW Coeff of Sugar (11.5-14.5) % Plt Count (130-400) K/uL MPV (7.4-10.4) fL Immature Gran % (Auto) % Neut % (Auto) % Lymph % (Auto) % [place] % (Auto) % Eos % (Auto) % Baso % (Auto) % Immature Gran # (Auto) (0.00-0.02) K/uL Neut # (Auto) (1.4-6.5) K/uL Lymph # (Auto) (1.2-3.4) K/uL [place] # (Auto) (0.11-0.59) K/uL Eos # (Auto) (0-0.5) K/uL Baso # (Auto) (0-0.2) K/uL PT (9.0-12.0) Seconds INR (0.9-1.1) APTT (21.0-31.0) Seconds PTT Ratio Sodium (136-145) mmol/L Potassium (3.5-5.1) mmol/L Chloride (98-107) mmol/L Carbon Dioxide (21-32) mmol/L Anion Gap (3-11) BUN (7-18) mg/dl Creatinine (0.6-1.2) mg/dl Est Cr Clr Drug Dosing ml/min Est GFR ( Amer) Est GFR (Non-Af Amer) BUN/Creatinine Ratio (10-20) Glucose (70-99) mg/dl Lactate (0.4-2.0) mmol/L Calcium (8.5-10.1) mg/dl Total Bilirubin (0.2-1) mg/dl AST (15-37) U/L ALT (12-78) U/L Alkaline Phosphatase (45-117) U/L Troponin I Cancelled (0-0.045) ng/ml Total Protein (6.4-8.2) gm/dl Albumin (3.4-5.0) gm/dl Globulin (2.5-4.0) gm/dl Albumin/Globulin Ratio (0.9-2) Procalcitonin (0-0.5) ng/ml Urine Color Urine Appearance (Clear) Urine pH (4.5-7.5) Ur Specific [place] (1.000-1.030) Urine Protein (Negative) Urine Glucose (UA) (Negative) Urine Ketones (Negative) Urine Blood (Negative) Urine Nitrite (Negative) Urine Bilirubin (Negative) Urine Urobilinogen (Negative) Ur Leukocyte Esterase (Negative) Imaging Data Radiologist's Impression: Radiology results as stated below per my review and the radiologist's interpretation: XR chest 1V portable HISTORY: Sepsis COMPARISON: Chest 09/10/2018. FINDINGS: No pneumothorax. The right lung is clear. The heart is normal in size. Retrocardiac lucency favors a moderate hiatus hernia. Left basilar densities and a left pleural effusion are new from the prior study. The bones are osteopenic. Degenerative changes within the right shoulder. IMPRESSION: 1. Small left pleural effusion and left basilar densities. This may represent atelectasis or pneumonia. 2. Moderate to large hiatus hernia. Electronically signed by: Caleb Rizo M.D. 02/26/2019 10:[address] HEAD: Negative Radiologist: Dheeraj Wheeler MD Study ready at 23:20 and initial results transmitted at 23:48 Blood Pressure Blood Pressure Findings: Normal blood pressure Blood Pressure Disposition: did not require urgent referral MDM Narrative This patient comes in as described above. She was placed in room B7. She brought in by her daughter after her daughter felt that she was weak and had a cough. She was having difficulty standing and is more confused than normal. I talked to the daughter and seems like the symptoms have been progressive over about the last week they did not start abruptly today and there are nonfocal. At this point, I do not suspect a stroke but I did do a CAT scan of her head it was unremarkable. She has had a cough and there is been several people with p [place] where she lives. Multiple blood testing was obtained I did a sepsis work-up. Her white count is not elevated nor is her procalcitonin however her lactic is 3.3. she was hydrated with IV normal saline. On chest x-ray, she was found to have effusion and either infiltrate or atelectasis in the left base. Given her clinical presentation concern this could be pneumonia she was given Rocephin IV. She has been without issues had this before. Urinalysis unremarkable. I did consult Dr. Negron to see the patient ER for further treatment and evaluation. Impression & Plan Pneumonia, Weakness, Lactic acidemia, Confusional state Discharge Plan Visit Data Chief Complaint: Weakness Stated Complaint: WEAKNESS ED Provider: Lang Escobar Discharge Problem: Pneumonia, Weakness, Lactic acidemia, Confusional state Forms Stand Alone Forms: My [facility] 2d2c Prescriptions Prescriptions: No Action losartan 25 mg tablet 50 mg PO DAILY RF: 0 aspirin-dipyridamole [Aggrenox] 25-200 mg capsule, ER multiphase 12 hr 1 cap PO Q12 30 Days Qty: 30 RF: 5 ferrous sulfate 325 mg (65 mg iron) tablet 325 mg PO BID 30 Days Qty: 60 RF: 5 sodium chloride 1 gram tablet 1 g PO TID 30 Days Qty: 90 RF: 5 hydrocodone-acetaminophen 10-325 mg tablet 1 tab PO TID Qty: 90 RF: 0 gabapentin [Neurontin] 100 mg capsule 100 mg PO HS Qty: 90 RF: 2 fentanyl 25 mcg/hr patch 72 hour 1 patch TD Q72H Qty: 10 RF: 0 pramipexole 0.75 mg tablet 0.75 mg PO HS Qty: 90 RF: 3 verapamil [Calan SR] 240 mg tablet extended release 240 mg PO DAILY Qty: 90 RF: 3 atorvastatin [Lipitor] 40 mg tablet 40 mg PO DAILY Qty: 90 RF: 3 lorazepam 0.5 mg tablet 0.5 mg PO Q8 PRN (Reason: Anxiety) Qty: 30 RF: 0 metformin [Glucophage] 500 mg tablet 500 mg PO BID Qty: 180 RF: 3 pantoprazole 20 mg Tablet,Delayed Release (Dr/Ec) 20 mg PO BID RF: 0 meclizine 12.5 mg tablet 12.5 mg PO BID PRN (Reason: dizzyness) RF: 0 acetaminophen 500 mg Tablet 500 mg PO Q4 MDD 3 GRAMS/24 HOURS PRN (Reason: Fever Or Pain) RF: 0 paroxetine HCl 40 mg Tablet 40 mg PO DAILY RF: 0 carbidopa-levodopa [Sinemet] 25-100 mg tablet 0.5 tab PO BID RF: 0 cholecalciferol (vitamin D3) [Vitamin D3] 5,000 unit Tablet 5,000 unit PO QAM RF: 0 celecoxib 400 mg Capsule 200 mg PO BID RF: 0 docusate sodium 100 mg Capsule 100 mg PO BID PRN (Reason: Constipation) RF: 0 furosemide [Lasix] 20 mg tablet 20 mg PO DIRECTED PRN (Reason: weight gain/leg swelling) RF: 0 Benefiber Clear SF (dextrin) 3 gram/3.5 gram Powder In Packet 1 packet PO BID RF: 0 Myrbetriq 50 mg tablet extended release 24 hr 25 mg PO HS RF: 0 prednisone 2.5 mg tablet 1 mg PO BID RF: 0 Fleet Enema 19-7 gram/118 mL Enema 118 ml GA DAILY PRN (Reason: Constipation) RF: 0 lidocaine 5 % Adhesive Patch,Medicated 1 patch TOPICAL DAILY RF: 0 folic acid 1 mg Tablet 1 mg PO DAILY RF: 0 sodium chloride 1 gram Tablet 1,000 mg PO TID RF: 0 Referrals Referrals: Manuel rCum III, MD [Primary Care Provider] - The scribe's documentation has been prepared under my direction and personally reviewed by me in its entirety. I confirm that the note above accurately reflec ts all work, treatment, procedures, and medical decision making performed by me.
--- NOTE | 2019-02-27 00:57 | History & Physical Report ---
Date of Service February 27, 2019 Assessment & Plan (1) Lactic acidemia: Most likely secondary to dehydration and mild PNA. Lactate=3.3. Patient is afebrile, HD stable, non-toxic in appearance. Abdomen is soft. -Maintenance fluid -Repeat lactate in AM Present on Admission?: Yes (2) Confusional state: Metabolic encephalopathy most likely from underlying infection, dehydration. Possibly from increased dose of Fentanyl TD. Patient had Fentanyl increased to 25mcg appx 1 week ago. Patient also with underlying dementia and a poor functional baseline. -treatment of infection and dehydration as described -Delirium prevention strategies. -Decrease Fentanyl to 12.5mcg Present on Admission?: Yes (3) Pneumonia: Afebrile, HD stable, no respiratory distress -Ceftriaxone and Azithromycin -Supplemental O2 as needed -IS q 2 hours while awake Present on Admission?: Yes (4) Weakness: Most likely secondary to dehydration, PNA, hypokalemia, ?medication effects -Tx as above -PT/OT evaluation Present on Admission?: Yes (5) Restless legs syndrome: Chronic. Continue pramipexole Present on Admission?: Yes (6) Hyponatremia: Sodium presently 138. -Continue salt tabs 1 g 3 times daily -BMP in a.m. Present on Admission?: Yes (7) Hypertension: Blood pressure stable -Continue losartan, verapamil Present on Admission?: Yes (8) Hyperlipidemia: Chronic. Stable. -Continue atorvastatin Present on Admission?: Yes (9) Hyperactivity of bladder: Chronic. Stable. Patient with episodes of incontinence -Continue Myrbetriq -Adult diaper as needed Present on Admission?: Yes (10) Diabetes mellitus, controlled: Blood sugar = 164. Last hemoglobin A1c June, = 7.6 -We will hold metformin while inpatient and in presence of elevated lactate -Insulin sliding scale Present on Admission?: Yes (11) Depression: Chronic. -Continue Paxil Present on Admission?: Yes (12) Rheumatoid arthritis: Chronic. He should not denies joint pain or swelling. No clinical evidence of acute flare -Continue prednisone 1 mg p.o. twice daily Present on Admission?: Yes (13) Constipation: Patient reports not having a bowel movement recently. Unable to say when her last BM was. Her belly is soft, nondistended and nontender -Colace, Fleet enema as needed Present on Admission?: Yes (14) Cerebrovascular disease: Chronic. Her dementia. Overall with progressive decline. -Continue Aggrenox -Continue statin Present on Admission?: Yes (15) Chronic pain: Patient with chronic pain. Recently had the dosage of her fentanyl patch increased from 12 mcg to 25 mcg. Caretakers at [facility] believe that this may coincide with her progressive change in mental status, weakness and fatigue. -We will change fentanyl patch to 12.5 mcg -Continue home medications to include Celebrex, gabapentin, hydrocodone -Monitor for breakthrough pain FENLR at 100 mL/h x 2 L, monitor electrolytes and replete as needed. Give 40 mEq of potassium for K of 3.3. Consistent carb diet as tolerated ProphylaxisLovenox 30,, continue home Protonix CodeDNR/DNI per discussion with daughter, patient present in the room and agrees Dispositionobservation to medical floor Present on Admission?: Yes History of Present Illness Chief Complaint: Weakness, fatigue, outpatient hypoxia Primary Care Provider: Manuel Crum MD Walker Jose Antonio is an 79-year-old female with multiple medical problems presenting [facility] with possible [facility]. [facility]akers at the [facility] commented the patient has had generalized weakness, fatigue, decreased p.o. intake, not acting herself and requiring more assistance in ADLs. The symptoms have been ongoing for approximately 1 week. The daughter visited today and she was told that over the past 4 days the patient has been needing 2 people to assist her in standing. This is different from her baseline where the patient can stand with minimal assistance. She has also had a dry cough for the last 2 days and was found to be hypoxic at 80% today around 2030. She also became briefly confused where she was having a difficult time following commands. She was placed on 2 L of oxygen with improvement in saturations and mental faculties. Patient offers no complaints. Denies pain. Denies shortness of breath/fever/chills/nausea/vomiting/diarrhea. She has been constipated lately ER course: Ceftriaxone, normal saline Allergies Allergy/AdvReac Type Severity Reaction Status Date / Time Penicillins Allergy Intermediate HIVES Verified 02/26/19 23:18 adhesive Allergy Unknown SKIN Verified 02/26/19 23:18 REDNESS AND IRRITATION latex Allergy Unknown PATIENT Verified 02/26/19 23:18 UNSURE tolterodine AdvReac Intermediate GI SYMPTOMS Verified 02/26/19 23:18 Home Medications Home Medications Medication Instructions Recorded Confirmed Type acetaminophen 500 mg PO Q4 PRN MDD 3 GRAMS/24 09/09/18 02/26/19 History HOURS carbidopa-levodopa [Sinemet] 0.5 tab PO BID 09/09/18 02/26/19 History cholecalciferol (vitamin D3) 5,000 unit PO QAM 09/09/18 02/26/19 History [Vitamin D3] meclizine 12.5 mg PO BID PRN 09/09/18 02/26/19 History pantoprazole 20 mg PO BID 09/09/18 02/26/19 History paroxetine HCl 40 mg PO DAILY 09/09/18 02/26/19 History losartan 25 mg tablet 50 mg PO DAILY 11/01/18 02/26/19 History aspirin 25 mg-dipyridamole 200 mg 1 cap PO Q12 30 Days #30 cap 12/02/18 02/26/19 Rx capsule,ext.release 12 hr multiphase ferrous sulfate 325 mg (65 mg 325 mg PO BID 30 Days #60 tab 12/02/18 02/26/19 Rx iron) tablet sodium chloride 1 gram tablet 1 g PO TID 30 Days #90 tab 12/02/18 02/26/19 Rx hydrocodone 10 mg-acetaminophen 1 tab PO TID #90 tab 12/26/18 02/26/19 Rx 325 mg tablet fentanyl 25 mcg/hr transdermal 1 patch TD Q72H #10 ea 02/07/19 02/26/19 Rx patch gabapentin 100 mg capsule 100 mg PO HS #90 cap 02/07/19 02/26/19 Rx pramipexole 0.75 mg tablet 0.75 mg PO HS #90 tab 02/13/19 02/26/19 Rx verapamil ER (SR) 240 mg 240 mg PO DAILY #90 tab 02/16/19 02/26/19 Rx tablet,extended release atorvastatin 40 mg tablet 40 mg PO DAILY #90 tab 02/21/19 02/26/19 Rx lorazepam 0.5 mg tablet 0.5 mg PO Q8 PRN #30 tab 02/21/19 02/26/19 Rx metformin 500 mg tablet 500 mg PO BID #180 tab 02/24/19 02/26/19 Rx celecoxib 200 mg PO BID 02/26/19 02/26/19 History docusate sodium 100 mg PO BID PRN 02/26/19 02/26/19 History folic acid 1 mg PO DAILY 02/26/19 02/26/19 History furosemide [Lasix] 20 mg PO DIRECTED PRN 02/26/19 02/26/19 History lidocaine 1 patch TOPICAL DAILY 02/26/19 02/26/19 History mirabegron [Myrbetriq] 25 mg PO HS 02/26/19 02/26/19 History prednisone 1 mg PO BID 02/26/19 02/26/19 History sodium chloride 1,000 mg PO TID 02/26/19 02/26/19 History sodium phosphates [Fleet Enema] 118 ml PA DAILY PRN 02/26/19 02/26/19 History wheat dextrin [Benefiber Clear SF 1 packet PO BID 02/26/19 02/26/19 History (dextrin)] Past Med/Surg History Medical History Vitamin D deficiency (Acute) Urge and stress incontinence (Acute) Tremor (Acute) Steroid-induced osteoporosis (Acute) Restless legs syndrome (Acute) Oral thrush (Acute) Narcotic withdrawal (Acute) Iron deficiency anemia (Acute) Hyponatremia (Chronic) Hypertension (Acute) Hyperlipidemia (Acute) Hypercalciuria (Acute) Hyperactivity of bladder (Acute) Fracture of right orbital floor (Acute) Dupuytren's contracture (Acute) Diabetes mellitus, controlled (Acute) Depression (Acute) Cystocele, midline (Acute) Compression fracture of L1 lumbar vertebra (Acute) Cerebrovascular disease (Acute) Cataract, bilateral (Acute) Carpal tunnel syndrome (Acute) Carotid artery stenosis (Acute) C. difficile diarrhea (Acute) Aspiration pneumonia (Acute) Arteriosclerotic cardiovascular disease (ASCVD) (Acute) Vertigo Overactive bladder (Chronic) Opioid dependence Chronic pain Rheumatoid arthritis Factor V Leiden (Acute) Fall from slip, trip, or stumble (Inactive) Cellulitis Chest pain Chronic steroid use Degenerative disc disease Hiatal hernia Metabolic encephalopathy Metabolic encephalopathy Osteoarthritis Systemic lupus erythematosus Toxic encephalopathy Transient ischemic attack (TIA) UTI (urinary tract infection) Surgical History History of cataract surgery Family History Father Stroke syndrome Mother Stroke syndrome Diverticulosis of colon Sister Parkinsons disease Brother Coronary heart disease Myocardial infarction COPD (chronic obstructive pulmonary disease) Other Family history non-contributory Social History Preferred Language: Yoruba Communication Ability: Effective Visual Impairment: Limited Hearing Ability: Normal Project Builder Required: No Beliefs That Will Affect Care: None marital status: Current Living Situation: [facility] Feels Safe at Home: Yes Smoking Status: Never smoker Second Hand Exposure: No ; Hx Alcohol Use: No Hx Substance Use: No Review of Systems Review of Systems: All systems reviewed & are unremarkable except as noted in HPI & below Physical Exam Physical Exam: General: Frail, elderly female resting comfortably, NAD, non- toxic in appearance Skin: warm, dry, intact, no rashes or lesions HEENT: NC/AT, pupils irregular, EOMI, anicteric sclera, conjunctiva without injection, external ear normal to inspection and nontender, nares patent, dry mucus membranes, dentition intact, no oropharyngeal lesions, neck supple, trachea midline, no LAD, no thyromegaly, no JVD Heart: +S1/S2, regular, no m/r/g Lungs: equal air entry bilaterally, crackles in left base Abd: +BS, soft, NT/ND, no masses/organomegaly/ascites Ext: warm, 2+ pulses in UE/LE bilaterally, no clubbing/cyanosis, trace edema Neuro: nonfocal, patient AA&O to self, speech intact, no facial droop, moving all extremities on command with equal strength 5/5 Results & Data Vital Signs (Past 12 Hours) Vital Signs Temp Pulse Pulse Resp BP BP Pulse Ox 02/26/19 23:21 86 18 133/95 95 02/26/19 22:49 94 02/26/19 22:14 93 H 16 113/32 L 93 02/26/19 22:13 93 02/26/19 22:02 36.7 C 99 H 16 144/85 H 92 Laboratory Results Lab Results 02/26/19 02/26/19 02/26/19 Range/Units 22:25 22:45 22:45 WBC 5.37 (4.8-10.8) K/uL RBC 3.69 L (4.2-5.4) M/uL Hgb 12.2 (12.0-16.0) g/dL Hct 36.2 L (37-47) % MCV 98.1 (80-100) fL MCH 33.1 (25-34) pg MCHC 33.7 (32-36) g/dL RDW Std Deviation 47.1 H (36.4-46.3) fL RDW Coeff of Sugar 13.2 (11.5-14.5) % Plt Count 229 (130-400) K/uL MPV 9.4 (7.4-10.4) fL Immature Gran % (Auto) 0.4 % Neut % (Auto) 64.8 % Lymph % (Auto) 16.0 % Green % (Auto) 14.5 % Eos % (Auto) 3.7 % Baso % (Auto) 0.6 % Immature Gran # (Auto) 0.02 (0.00-0.02) K/uL Neut # (Auto) 3.48 (1.4-6.5) K/uL Lymph # (Auto) 0.86 L (1.2-3.4) K/uL Green # (Auto) 0.78 H (0.11-0.59) K/uL Eos # (Auto) 0.20 (0-0.5) K/uL Baso # (Auto) 0.03 (0-0.2) K/uL PT 10.1 (9.0-12.0) Seconds INR 1.0 (0.9-1.1) APTT 27.9 (21.0-31.0) Seconds PTT Ratio 1.0 Sodium (136-145) mmol/L Potassium (3.5-5.1) mmol/L Chloride (98-107) mmol/L Carbon Dioxide (21-32) mmol/L Anion Gap (3-11) BUN (7-18) mg/dl Creatinine (0.6-1.2) mg/dl Est Cr Clr Drug Dosing ml/min Est GFR ( Amer) Est GFR (Non-Af Amer) BUN/Creatinine Ratio (10-20) Glucose (70-99) mg/dl Lactate (0.4-2.0) mmol/L Calcium (8.5-10.1) mg/dl Total Bilirubin (0.2-1) mg/dl AST (15-37) U/L ALT (12-78) U/L Alkaline Phosphatase (45-117) U/L Troponin I (0-0.045) ng/ml Total Protein (6.4-8.2) gm/dl Albumin (3.4-5.0) gm/dl Globulin (2.5-4.0) gm/dl Albumin/Globulin Ratio (0.9-2) Procalcitonin (0-0.5) ng/ml Urine Color Yellow Urine Appearance Clear (Clear) Urine pH 5.0 (4.5-7.5) Ur Specific Lincoln 1.020 (1.000-1.030) Urine Protein Negative (Negative) Urine Glucose (UA) Negative (Negative) Urine Ketones Trace H (Negative) Urine Blood Negative (Negative) Urine Nitrite Negative (Negative) Urine Bilirubin Negative (Negative) Urine Urobilinogen Negative (Negative) Ur Leukocyte Esterase Negative (Negative) 02/26/19 02/26/19 02/26/19 Range/Units 22:45 22:45 22:45 WBC (4.8-10.8) K/uL RBC (4.2-5.4) M/uL Hgb (12.0-16.0) g/dL Hct (37-47) % MCV (80-100) fL MCH (25-34) pg MCHC (32-36) g/dL RDW Std Deviation (36.4-46.3) fL RDW Coeff of Sugar (11.5-14.5) % Plt Count (130-400) K/uL MPV (7.4-10.4) fL Immature Gran % (Auto) % Neut % (Auto) % Lymph % (Auto) % Green % (Auto) % Eos % (Auto) % Baso % (Auto) % Immature Gran # (Auto) (0.00-0.02) K/uL Neut # (Auto) (1.4-6.5) K/uL Lymph # (Auto) (1.2-3.4) K/uL Green # (Auto) (0.11-0.59) K/uL Eos # (Auto) (0-0.5) K/uL Baso # (Auto) (0-0.2) K/uL PT (9.0-12.0) Seconds INR (0.9-1.1) APTT (21.0-31.0) Seconds PTT Ratio Sodium 138 (136-145) mmol/L Potassium 3.3 L (3.5-5.1) mmol/L Chloride 102 (98-107) mmol/L Carbon Dioxide 27 (21-32) mmol/L Anion Gap 9.0 (3-11) BUN 20 H (7-18) mg/dl Creatinine 0.74 (0.6-1.2) mg/dl Est Cr Clr Drug Dosing 52.5 ml/min Est GFR ( Amer) 88.7 Est GFR (Non-Af Amer) 76.5 BUN/Creatinine Ratio 26.7 H (10-20) Glucose 164 H (70-99) mg/dl Lactate 3.3 H* (0.4-2.0) mmol/L Calcium 9.2 (8.5-10.1) mg/dl Total Bilirubin 0.3 (0.2-1) mg/dl AST 18 (15-37) U/L ALT 17 (12-78) U/L Alkaline Phosphatase 85 (45-117) U/L Troponin I < 0.015 (0-0.045) ng/ml Total Protein 6.6 (6.4-8.2) gm/dl Albumin 3.2 L (3.4-5.0) gm/dl Globulin 3.4 (2.5-4.0) gm/dl Albumin/Globulin Ratio 0.9 (0.9-2) Procalcitonin < 0.05 (0-0.5) ng/ml Urine Color Urine Appearance (Clear) Urine pH (4.5-7.5) Ur Specific Lincoln (1.000-1.030) Urine Protein (Negative) Urine Glucose (UA) (Negative) Urine Ketones (Negative) Urine Blood (Negative) Urine Nitrite (Negative) Urine Bilirubin (Negative) Urine Urobilinogen (Negative) Ur Leukocyte Esterase (Negative) 02/26/19 Range/Units 22:45 WBC (4.8-10.8) K/uL RBC (4.2-5.4) M/uL Hgb (12.0-16.0) g/dL Hct (37-47) % MCV (80-100) fL MCH (25-34) pg MCHC (32-36) g/dL RDW Std Deviation (36.4-46.3) fL RDW Coeff of Sugar (11.5-14.5) % Plt Count (130-400) K/uL MPV (7.4-10.4) fL Immature Gran % (Auto) % Neut % (Auto) % Lymph % (Auto) % Green % (Auto) % Eos % (Auto) % Baso % (Auto) % Immature Gran # (Auto) (0.00-0.02) K/uL Neut # (Auto) (1.4-6.5) K/uL Lymph # (Auto) (1.2-3.4) K/uL Green # (Auto) (0.11-0.59) K/uL Eos # (Auto) (0-0.5) K/uL Baso # (Auto) (0-0.2) K/uL PT (9.0-12.0) Seconds INR (0.9-1.1) APTT (21.0-31.0) Seconds PTT Ratio Sodium (136-145) mmol/L Potassium (3.5-5.1) mmol/L Chloride (98-107) mmol/L Carbon Dioxide (21-32) mmol/L Anion Gap (3-11) BUN (7-18) mg/dl Creatinine (0.6-1.2) mg/dl Est Cr Clr Drug Dosing ml/min Est GFR ( Amer) Est GFR (Non-Af Amer) BUN/Creatinine Ratio (10-20) Glucose (70-99) mg/dl Lactate (0.4-2.0) mmol/L Calcium (8.5-10.1) mg/dl Total Bilirubin (0.2-1) mg/dl AST (15-37) U/L ALT (12-78) U/L Alkaline Phosphatase (45-117) U/L Troponin I Cancelled (0-0.045) ng/ml Total Protein (6.4-8.2) gm/dl Albumin (3.4-5.0) gm/dl Globulin (2.5-4.0) gm/dl Albumin/Globulin Ratio (0.9-2) Procalcitonin (0-0.5) ng/ml Urine Color Urine Appearance (Clear) Urine pH (4.5-7.5) Ur Specific Lincoln (1.000-1.030) Urine Protein (Negative) Urine Glucose (UA) (Negative) Urine Ketones (Negative) Urine Blood (Negative) Urine Nitrite (Negative) Urine Bilirubin (Negative) Urine Urobilinogen (Negative) Ur Leukocyte Esterase (Negative) Diagnostic Findings XR chest 1V portable HISTORY: Sepsis COMPARISON: Chest 09/10/2018. FINDINGS: No pneumothorax. The right lung is clear. The heart is normal in size. Retrocardiac lucency favors a moderate hiatus hernia. Left basilar densities and a left pleural effusion are new from the prior study. The bones are osteopenic. Degenerative changes within the right shoulder. IMPRESSION: 1. Small left pleural effusion and left basilar densities. This may represent atelectasis or pneumonia. 2. Moderate to large hiatus hernia. Electronically signed by: Caleb Rizo M.D. 02/26/2019 10:38 PM Dictated: 02/26/192236 Transcribed: 02/26/192236 CT head without contrast: Negative Code Status & VTE Plan Code Status DNR/DNI VTE Prophylaxis Plan VTE Prophylaxis will be ordered: Yes PG Care Time/CCT Total # of Minutes Spent Total Time Spent with Patient: Total time spent is greater than 50% in coordination of care (as documented) at patient's floor/unit and/or counseling patient: (1) Pneumonia Laterality: unspecified laterality Lung location: unspecified part of lung Pneumonia type: due to unspecified organism Qualified Code(s): J18.9 - Pneumonia, unspecified organism (2) Hypertension Hypertension type: essential hypertension Qualified Code(s): I10 - Essential (primary) hypertension (3) Hyperlipidemia Hyperlipidemia type: unspecified Qualified Code(s): E78.5 - Hyperlipidemia, unspecified (4) Diabetes mellitus, controlled Diabetes mellitus type: type 2 Diabetes mellitus [facility] insulin use: without watermaster use Diabetes mellitus complication status: without complication Qualified Code(s): E11.9 - Type 2 diabetes mellitus without complications (5) Depression Depression Type: unspecified Qualified Code(s): F32.9 - Major depressive disorder, single episode, unspecified (6) Rheumatoid arthritis Rheumatoid arthritis location: multiple sites Rheumatoid factor presence: unspecified presence Qualified Code(s): M06.9 - Rheumatoid arthritis, unspecified (7) Constipation Constipation type: unspecified constipation type Qualified Code(s): K59.00 - Constipation, unspecified (8) Chronic pain Chronic pain type: other chronic pain Qualified Code(s): G89.29 - Other chronic pain
[2019-02-27] MEDS ORDERED: DEXTROSE 50% 50 ML SYRINGE IV PRN (02:05)
[2019-02-27] MEDS ORDERED: GLUCOSE 40% GEL 15 GM TUBE PO PRN (02:05)
[2019-02-27] MEDS ORDERED: POTASSIUM CHLORIDE 10 MEQ TABCR PO STA (02:05)
[2019-02-27] MEDS ORDERED: DOCUSATE SODIUM 100 MG CAP PO PRN ×2 (02:05)
[2019-02-27] MEDS ORDERED: GLUCOSE 10 TABS/TUBE PO PRN (02:05)
[2019-02-27] MEDS ORDERED: GLUCAGON FOR INJ 1 MG VIAL SQ PRN (02:05)
[2019-02-27] MEDS ORDERED: SOD PHOSPHATE/SOD BIPHOSPHATE ENEMA 132 ML BTL PR PRN (02:05)
[2019-02-27] MEDS ORDERED: ACETAMINOPHEN 500 MG TAB PO PRN (02:05)
[2019-02-27] MEDS ORDERED: CARBOHYDRATES FOR HYPOGLYCEMIA PO PRN (02:05)
[2019-02-27] MEDS ORDERED: ACETAMINOPHEN 325 MG TAB PO PRN (02:05)
[2019-02-27] MEDS ORDERED: LORazepam 0.5 MG TAB PO PRN (02:05)
[2019-02-27] MEDS ORDERED: AZITHROMYCIN 500 MG in DEXTROSE 5% 250 ML IV ONE (02:30)
[2019-02-27 02:54] LABS: Magnesium 1.4 mg/dl (1.8-2.4); Phosphorus 3.5 mg/dl (2.5-4.9)
[2019-02-27] MEDS: LACTATED RINGER'S 1,000 ML IV SCH ×2 (03:19→12:50)
[2019-02-27] MEDS: fentaNYL 12 MCG/HR TDSY TD SCH (03:35)
[2019-02-27] MEDS: ENOXAPARIN INJ 30 MG/0.3 ML SYR SQ SCH (05:20)
--- NOTE | 2019-02-27 05:22 | CT Scan Report ---
CT head/brain wo con CLINICAL HISTORY: 79 years-old Female presenting with weakness. TECHNIQUE: Multidetector CT imaging of the head was performed without the use of intravenous contrast . IV contrast: None. One or more dose lowering techniques were used consistent with the principles of ALARA (as low as reasonably achievable), including automatic exposure control, mA or kV adjustment t o individual patient size, and/or use of iterative reconstruction. COMPARISON: 09/14/2018. CT DOSE (mGy.cm): The estimated cumulative dose is 537.48 mGy.cm. FINDINGS: Maritime Engineer topogram: Unremarkable. Proportional ventricular and sulcal prominence, likely age-related parenchymal volume loss. No hemorr mario. Periventricular and subcortical white matter hypoattenuation, nonspecific but likely indicative of chronic small vessel ischemic change. No acute territorial infarct. No mass effect or midline janet ft. No extra-axial fluid collection. Paranasal sinuses and mastoid air cells clear. Calvarium intact. Intracranial atherosclerosis noted. IMPRESSION: 1. Chronic small vessel ischemic change. No acute intracranial abnormality. Electronically signed by: Stepan Marquez M.D. 02/27/2019 5:21 AM
[2019-02-27] MEDS ORDERED: CHECK FENTANYL PATCH PLACEMENT SCH (08:00)
[2019-02-27] MEDS: FERROUS SULFATE 325 MG TAB PO SCH ×3 (08:20→16:48)
[2019-02-27] MEDS: DIPYRIDAMOLE/ASPIRIN CAP PO SCH ×2 (08:20→20:45)
[2019-02-27] MEDS: CeleBREX 200 MG CAP PO SCH ×2 (08:21→20:45)
[2019-02-27] MEDS: LOSARTAN POTASSIUM 25 MG TAB PO SCH (08:21)
[2019-02-27] MEDS: FOLIC ACID 1 MG TAB PO SCH (08:21)
[2019-02-27] MEDS: VERAPAMIL HCL 240 MG TABCR PO SCH (08:21)
[2019-02-27] MEDS: LIDOCAINE 5% 1 PATCH TD SCH (08:22)
[2019-02-27] MEDS: ATORVASTATIN 40 MG TAB PO SCH (08:23)
[2019-02-27] MEDS: PARoxetine HCl 20 MG TAB PO SCH (08:23)
[2019-02-27] MEDS: predniSONE 1 MG TAB PO SCH ×2 (08:23→20:46)
[2019-02-27] MEDS: PANTOprazole 40 MG TAB PO SCH ×2 (08:23→20:46)
[2019-02-27] MEDS: CARBIDOPA/LEVODOPA 25/100MG TAB PO SCH ×2 (08:23→20:46)
[2019-02-27] MEDS: PSYLLIUM 58.6% POWDER PACKET PO SCH ×3 (08:24→20:45)
[2019-02-27] MEDS: CHOLECALCIFEROL 1,000 UNITS TAB PO SCH (08:24)
[2019-02-27] MEDS: SODIUM CHLORIDE 1 GM TABLET PO SCH ×3 (08:24→20:46)
[2019-02-27] MEDS: CHECK FENTANYL PATCH PLACEMENT SCH ×2 (08:25→16:17)
[2019-02-27] MEDS ORDERED: HYDROCODONE/ACETAMINOPHEN 10/325 TAB PO PRN (09:00)
[2019-02-27] MEDS: INSULIN ASPART 100 UNITS/ML 3 ML PEN SC SCH ×4 (09:09→20:44)
--- NOTE | 2019-02-27 12:41 | Hospitalist Progress Note ---
Date of Service February 27, 2019 Assessment & Plan (1) Lactic acidemia: - Likely due to dehydration and PNA - lactic of 3.3 on admission and currently at 1.8 - Will continue gentle hydration today and likely D/C tomorrow Present on Admission?: Yes (2) Pneumonia: - CXR with a L basilar density - atelectasis vs pneumonia; remains afebrile, no leukocytosis, on supplemental O2 and will when as tolerable - Continue Zithromax 250 mg IV daily and Rocephin 1 g IV daily; encourage incentive spirometry Present on Admission?: Yes (3) Confusional state: - Likely multifactorial between metabolic encephalopathy from underlying infection/dehydration; possibly toxic from increased dose of Fentanyl as this was just done about a week ago - this is all superimposed on underlying vascular dementia with has been noted to be progressive - reports she is still more confused then her baseline today - given poor sleep and early admission this could be factoring in as well - Fentanyl was decreased back to 12.5 mcg Q72H; treatment for infection as above Present on Admission?: Yes (4) Weakness: - Likely multifactorial between general decline and worsened with dehydration/infection - PT/OT evaluations Present on Admission?: Yes (5) Diabetes mellitus, controlled: - STABLE; A1c (Jun 2018) - 7.6 - Holding Metformin due to poor appetite; cover with ISS Present on Admission?: Yes (6) Hyponatremia: - Has remained stable since implementation of salt tabs - Continue salt tabs 1 g TID and routine monitor Na levels Present on Admission?: Yes (7) Hypertension: - STABLE - Continue Losartan 50 mg daily and Verapamil 240 mg daily Present on Admission?: Yes (8) Hyperlipidemia: - STABLE - Continue Atorvastatin 40 mg daily Present on Admission?: Yes (9) Depression: - STABLE - Paxil 40 mg daily Present on Admission?: Yes (10) Rheumatoid arthritis: - Chronic - Continue Prednisone 1 mg daily - no indication for stress-dosed steroids at this time; Continue pain control measures Present on Admission?: Yes (11) Cerebrovascular disease: - Chronic - H/O CVA in Jun 2018; Progressive decline from dementia - Continue Aggrenox BID and statin therapy Present on Admission?: Yes (12) Chronic pain: - Chronic - Recent increase of Fentanyl patch from 12 to 25 mcg - it is possibly this coincides with change in mental status, weakness, and fatigue -- Decreased back to 12.5 mcg; Contiue Celebrex 200 mg BID; Gabapentin 100 mg HS; Percocet PRN Present on Admission?: Yes (13) Restless legs syndrome: - Continue Pramipexole 0.75 mg HS Present on Admission?: Yes (14) Hyperactivity of bladder: - STABLE - Continue Myrbetriq 25 mg HS Present on Admission?: Yes (15) DVT prophylaxis: - Do Not Resuscitate Disposition: Resident of [facility] Subjective Patient largely resting during my visit today. She reports feeling very tired but doesn't give much more in details of how she is feeling. Discussed with at bedside who reports she is more confused then her normal but has had progressive dementia and he cannot care for her at home. He also reports progressive weakness and more dependence with ADLs/tasks. He states she does not walk at this point. She does not normally wear oxygen at home. Review of Systems Review of Systems: Limited due to patient fatigue. Reports generalized fatigue and malaise. Physical Exam Constitutional: + frail appearing; no acute distress Eyes: + anicteric sclerae ENMT: Mouth: + dry oral mucous membranes Neck: trachea midline Respiratory: normal respiratory effort Auscultation: + crackles (b/l bases) Cardiovascular: Rate/Rhythm: regular rate and regular rhythm Heart Sounds: no murmur Extremities: + edema (trace to 1+ b/l ankles) Gastrointestinal (Abdomen): Inspection/Auscultation: normal bowel sounds Percussion/Palpation: abdomen soft; abdomen nontender Musculoskeletal: Head/Neck/Chest: normocephalic and head atraumatic Skin: no rashes, warm and dry Psychiatric: Orientation: alert Results & Data Vital Signs (Past 12 Hours) Vital Signs Temp Pulse Pulse Resp BP BP BP 02/27/19 07:33 36.7 C 75 18 131/68 02/27/19 02:05 02/27/19 02:00 37.3 C 80 16 136/78 02/27/19 01:49 82 20 131/72 02/27/19 01:02 83 20 133/69 Pulse Ox Pulse Ox 02/27/19 07:33 98 02/27/19 02:05 98 02/27/19 02:00 98 02/27/19 01:49 92 02/27/19 01:02 92 PG Care Time/CCT Total # of Minutes Spent Total Time Spent with Patient: Total time spent is greater than 50% in coordination of care (as documented) at patient's floor/unit and/or counseling patient: (1) Pneumonia Laterality: unspecified laterality Lung location: unspecified part of lung Pneumonia type: due to unspecified organism Qualified Code(s): J18.9 - Pneumonia, unspecified organism (2) Hypertension Hypertension type: essential hypertension Qualified Code(s): I10 - Essential (primary) hypertension (3) Hyperlipidemia Hyperlipidemia type: unspecified Qualified Code(s): E78.5 - Hyperlipidemia, unspecified (4) Diabetes mellitus, controlled Diabetes mellitus type: type 2 Diabetes mellitus jail insulin use: without chip mixing machine operator use Diabetes mellitus complication status: without complication Qualified Code(s): E11.9 - Type 2 diabetes mellitus without complications (5) Depression Depression Type: unspecified Qualified Code(s): F32.9 - Major depressive disorder, single episode, unspecified (6) Rheumatoid arthritis Rheumatoid arthritis location: multiple sites Rheumatoid factor presence: unspecified presence Qualified Code(s): M06.9 - Rheumatoid arthritis, unspecified (7) Chronic pain Chronic pain type: other chronic pain Qualified Code(s): G89.29 - Other chronic pain
[2019-02-27] MEDS ORDERED: MICONAZOLE NITRATE POWDER 43 GM EXT PRN (15:10)
[2019-02-27] MEDS ORDERED: MICONAZOLE NITRATE POWDER 43 GM ONE (15:12)
[2019-02-27] MEDS: PRAMIPEXOLE DIHYDROCHLO 0.25 MG TAB PO SCH (20:46)
[2019-02-27] MEDS: MIRABEGRON ER 25 MG TAB PO SCH (20:46)
[2019-02-27] MEDS: GABAPENTIN 100 MG CAP PO SCH (20:46)
[2019-02-27] MEDS: cefTRIAXone SODIUM 1,000 MG in DEXTROSE 5% 50 ML IV SCH (22:01)
[2019-02-28] MEDS: CHECK FENTANYL PATCH PLACEMENT SCH ×3 (00:01→15:57)
[2019-02-28] MEDS: AZITHROMYCIN 250 MG in DEXTROSE 5% 250 ML IV SCH (05:29)
[2019-02-28] MEDS: ENOXAPARIN INJ 30 MG/0.3 ML SYR SQ SCH (05:29)
[2019-02-28 05:52] LABS: Basophils # (auto) 0.02 K/uL (0-0.2); Basophils % (auto) 0.5 %; Eosinophils # (auto) 0.27 K/uL (0-0.5); Eosinophils % (auto) 6.5 %; Hematocrit (blood only) 35.2 % (37-47); Hemoglobin 11.4 g/dL (12.0-16.0); Immature Granulocytes # (auto) 0.01 K/uL (0.00-0.02); Immature Granulocytes % (auto) 0.2 %; Lymphocytes % (auto) 21.8 %; Mean Corpuscular Hemoglobin 32.1 pg (25-34); Mean Corpuscular Hgb Conc 32.4 g/dL (32-36); Mean Corpuscular Volume 99.2 fL (80-100); Mean Platelet Volume 9.6 fL (7.4-10.4); Monocytes # (auto) 0.62 K/uL (0.11-0.59); Neutrophils # (auto) 2.31 K/uL (1.4-6.5); Platelet Count 192 K/uL (130-400); RDW Coefficient of Variation 13.2 % (11.5-14.5); Red Blood Count 3.55 M/uL (4.2-5.4); White Blood Count 4.13 K/uL (4.8-10.8)
[2019-02-28 06:31] LABS: BUN Creatinine Ratio 15.3 (10-20); Calcium 8.2 mg/dl (8.5-10.1); Est GFR (African American) 99.8; Est GFR (Non-African American) 86.1; Potassium 3.8 mmol/L (3.5-5.1)
[2019-02-28] MEDS: INSULIN ASPART 100 UNITS/ML 3 ML PEN SC SCH ×4 (09:45→21:06)
[2019-02-28] MEDS: DIPYRIDAMOLE/ASPIRIN CAP PO SCH ×2 (09:46→21:04)
[2019-02-28] MEDS: FERROUS SULFATE 325 MG TAB PO SCH ×2 (09:46→15:56)
[2019-02-28] MEDS: PANTOprazole 40 MG TAB PO SCH ×2 (09:47→21:04)
[2019-02-28] MEDS: VERAPAMIL HCL 240 MG TABCR PO SCH (09:47)
[2019-02-28] MEDS: CeleBREX 200 MG CAP PO SCH ×2 (09:48→21:04)
[2019-02-28] MEDS: LOSARTAN POTASSIUM 25 MG TAB PO SCH (09:48)
[2019-02-28] MEDS: CARBIDOPA/LEVODOPA 25/100MG TAB PO SCH ×2 (09:50→21:05)
[2019-02-28] MEDS: FOLIC ACID 1 MG TAB PO SCH (09:51)
[2019-02-28] MEDS: LIDOCAINE 5% 1 PATCH TD SCH (09:51)
[2019-02-28] MEDS: PARoxetine HCl 20 MG TAB PO SCH (09:52)
[2019-02-28] MEDS: ATORVASTATIN 40 MG TAB PO SCH (09:52)
[2019-02-28] MEDS: PSYLLIUM 58.6% POWDER PACKET PO SCH ×2 (09:52→21:04)
[2019-02-28] MEDS: SODIUM CHLORIDE 1 GM TABLET PO SCH ×3 (09:53→21:05)
[2019-02-28] MEDS: CHOLECALCIFEROL 1,000 UNITS TAB PO SCH (09:53)
[2019-02-28] MEDS: predniSONE 1 MG TAB PO SCH ×2 (09:53→21:04)
--- NOTE | 2019-02-28 17:16 | Hospitalist Progress Note ---
Date of Service February 28, 2019 Assessment & Plan (1) Lactic acidemia: - Likely due to dehydration and PNA - lactic of 3.3 on admission and currently at 1.8 - IVF discontinued at this time and will promote oral intake (2) Pneumonia: - CXR with a L basilar density - atelectasis vs pneumonia; remains afebrile, no leukocytosis, and has been weaned to RA - Continue Zithromax 250 mg IV daily and Rocephin 1 g IV daily - can convert to oral Zithromax to finish course and likely Omnicef to complete 5 day course; encourage incentive spirometry (3) Confusional state: - Likely multifactorial between metabolic encephalopathy from underlying infection/dehydration; possibly toxic from increased dose of Fentanyl as this was just done about a week ago - this is all superimposed on underlying vascular dementia with has been noted to be progressive; as well H/O CVA (Jun 2018) - reports today she appears much better and back to baseline however still having ongoing weakness which has been developing prior to illness - Fentanyl was decreased back to 12.5 mcg Q72H and may need to consider keeping this dose with an alternative for breakthrough pain vs trial of increased dose when recovered from illness; treatment for infection as above (4) Weakness: - Likely multifactorial between general decline and worsened with dehydration/infection - PT/OT evaluations (5) Diabetes mellitus, controlled: - STABLE; A1c (Jun 2018) - 7.6 - Holding Metformin due to poor appetite; cover with ISS (6) Hyponatremia: - Has remained stable since implementation of salt tabs - Continue salt tabs 1 g TID and routine monitor Na levels (7) Hypertension: - STABLE - Continue Losartan 50 mg daily and Verapamil 240 mg daily (8) Hyperlipidemia: - STABLE - Continue Atorvastatin 40 mg daily (9) Depression: - STABLE - Paxil 40 mg daily (10) Rheumatoid arthritis: - Chronic - Continue Prednisone 1 mg daily - no indication for stress-dosed steroids at this time; Continue pain control measures (11) Cerebrovascular disease: - Chronic - H/O CVA in Jun 2018; Progressive decline from dementia - Continue Aggrenox BID and statin therapy (12) Chronic pain: - Chronic - Recent increase of Fentanyl patch from 12 to 25 mcg - it is possibly this coincides with change in mental status, weakness, and fatigue -- Decreased back to 12.5 mcg; Continue Celebrex 200 mg BID; Gabapentin 100 mg HS; Percocet PRN (13) Restless legs syndrome: - Continue Pramipexole 0.75 mg HS (14) Hyperactivity of bladder: - STABLE - Continue Myrbetriq 25 mg HS (15) DVT prophylaxis: - Do Not Resuscitate Disposition: Resident of [facility]; possible need for SNF on D/C; Updated over the phone this afternoon Subjective Pt reports feeling okay today. She continues with a cough but has been weaned to RA. She states she does not feel as tired today but due to dementia cannot really further elaborate on how she is feeling. She slept throughout the day yesterday and did have some owning yesterday evening. Review of Systems Review of Systems: Unobtainable due to cognitive status (dementia) Constitutional: no fatigue Respiratory: + cough; no dyspnea Cardiovascular: no chest pain Gastrointestinal: no abdominal pain Genitourinary: no dysuria Physical Exam Constitutional: + frail appearing; no acute distress Eyes: + anicteric sclerae ENMT: Ears: no hearing impairment Neck: normal visual inspection and trachea midline Respiratory: normal respiratory effort, lungs clear to auscultation Auscultation: + diminished lung sounds Cardiovascular: Rate/Rhythm: regular rate and regular rhythm Gastrointestinal (Abdomen): Inspection/Auscultation: normal bowel sounds Percussion/Palpation: abdomen soft; abdomen nontender Musculoskeletal: Head/Neck/Chest: normocephalic and head atraumatic Skin: no rashes, warm and dry Neurologic: moves all extremities chronic arthritic changes of the hands/fingers Psychiatric: Orientation: alert and oriented to person; + not oriented to place and + not oriented to time Results & Data Vital Signs (Past 12 Hours) Vital Signs Temp Pulse Resp BP Pulse Ox 02/28/19 15:26 36.7 C 76 18 125/76 96 02/28/19 07:31 36.7 C 71 18 144/82 H 94 PG Care Time/CCT Total # of Minutes Spent Total Time Spent with Patient: Total time spent is greater than 50% in coordination of care (as documented) at patient's floor/unit and/or counseling patient: (1) Pneumonia Laterality: unspecified laterality Lung location: unspecified part of lung Pneumonia type: due to unspecified organism Qualified Code(s): J18.9 - Pneumonia, unspecified organism (2) Diabetes mellitus, controlled Diabetes mellitus type: type 2 Diabetes mellitus marine oil terminal superintendent insulin use: without marine oil terminal superintendent use Diabetes mellitus complication status: without complication Qualified Code(s): E11.9 - Type 2 diabetes mellitus without complications (3) Hypertension Hypertension type: essential hypertension Qualified Code(s): I10 - Essential (primary) hypertension (4) Hyperlipidemia Hyperlipidemia type: unspecified Qualified Code(s): E78.5 - Hyperlipidemia, unspecified (5) Depression Depression Type: unspecified Qualified Code(s): F32.9 - Major depressive disorder, single episode, unspecified (6) Rheumatoid arthritis Rheumatoid arthritis location: multiple sites Rheumatoid factor presence: unspecified presence Qualified Code(s): M06.9 - Rheumatoid arthritis, unspecified (7) Chronic pain Chronic pain type: other chronic pain Qualified Code(s): G89.29 - Other chronic pain
[2019-02-28] MEDS: GABAPENTIN 100 MG CAP PO SCH (21:04)
[2019-02-28] MEDS: MIRABEGRON ER 25 MG TAB PO SCH (21:04)
[2019-02-28] MEDS: PRAMIPEXOLE DIHYDROCHLO 0.25 MG TAB PO SCH (21:04)
[2019-02-28] MEDS: cefTRIAXone SODIUM 1,000 MG in DEXTROSE 5% 50 ML IV SCH (22:17)
[2019-03-01] MEDS: CHECK FENTANYL PATCH PLACEMENT SCH ×3 (00:01→15:57)
[2019-03-01] MEDS: AZITHROMYCIN 250 MG in DEXTROSE 5% 250 ML IV SCH (05:34)
[2019-03-01] MEDS: ENOXAPARIN INJ 30 MG/0.3 ML SYR SQ SCH (05:34)
[2019-03-01] MEDS: PARoxetine HCl 20 MG TAB PO SCH (08:57)
[2019-03-01] MEDS: FOLIC ACID 1 MG TAB PO SCH (08:57)
[2019-03-01] MEDS: LIDOCAINE 5% 1 PATCH TD SCH (08:57)
[2019-03-01] MEDS: SODIUM CHLORIDE 1 GM TABLET PO SCH ×3 (08:57→21:28)
[2019-03-01] MEDS: CeleBREX 200 MG CAP PO SCH ×2 (08:57→21:28)
[2019-03-01] MEDS: VERAPAMIL HCL 240 MG TABCR PO SCH (08:58)
[2019-03-01] MEDS: predniSONE 1 MG TAB PO SCH ×2 (08:58→21:28)
[2019-03-01] MEDS: PANTOprazole 40 MG TAB PO SCH ×2 (08:58→21:28)
[2019-03-01] MEDS: ATORVASTATIN 40 MG TAB PO SCH (08:58)
[2019-03-01] MEDS: LOSARTAN POTASSIUM 25 MG TAB PO SCH (08:58)
[2019-03-01] MEDS: FERROUS SULFATE 325 MG TAB PO SCH ×2 (08:58→18:56)
[2019-03-01] MEDS: DIPYRIDAMOLE/ASPIRIN CAP PO SCH ×2 (08:58→21:28)
[2019-03-01] MEDS: PSYLLIUM 58.6% POWDER PACKET PO SCH ×2 (08:59→21:24)
[2019-03-01] MEDS: CHOLECALCIFEROL 1,000 UNITS TAB PO SCH (09:03)
[2019-03-01] MEDS: INSULIN ASPART 100 UNITS/ML 3 ML PEN SC SCH ×4 (09:21→22:27)
[2019-03-01] MEDS: CARBIDOPA/LEVODOPA 25/100MG TAB PO SCH ×2 (10:44→21:28)
[2019-03-01] MEDS: MIRABEGRON ER 25 MG TAB PO SCH (21:22)
[2019-03-01] MEDS: PRAMIPEXOLE DIHYDROCHLO 0.25 MG TAB PO SCH (21:27)
[2019-03-01] MEDS: GABAPENTIN 100 MG CAP PO SCH (21:28)
--- NOTE | 2019-03-01 22:47 | Hospitalist Progress Note ---
Date of Service March 01, 2019 Assessment & Plan (1) Lactic acidemia: - Likely due to dehydration and PNA - lactic of 3.3 on admission and trended down quickly - IVF discontinued at this time and will promote oral intake this is resolved (2) Pneumonia: - CXR with a L basilar density - atelectasis vs pneumonia; remains afebrile, no leukocytosis, and has been weaned to RA - Continue Zithromax 250 mg IV daily and Rocephin 1 g IV daily - can convert to oral Zithromax to finish course and likely Omnicef to complete 5 day course; encourage incentive spirometry (3) Confusional state: - Likely multifactorial between metabolic encephalopathy from underlying infection/dehydration; possibly toxic from increased dose of Fentanyl as this was just done about a week ago - this is all superimposed on underlying vascular dementia with has been noted to be progressive; as well H/O CVA (Jun 2018) - reports today she appears much better and back to baseline however still having ongoing weakness which has been developing prior to illness - Fentanyl was decreased back to 12.5 mcg Q72H and may need to consider keeping this dose with an alternative for breakthrough pain vs trial of increased dose when recovered from illness; treatment for infection as above no obvious confusion today (4) Weakness: - Likely multifactorial between general decline and worsened with dehydration/infection - PT/OT evaluations patient's 6 click scores quite low representing a huge percentage of deficit will need to improve to return to personal care get re-evaluated tomorrow (5) Diabetes mellitus, controlled: - STABLE; A1c (Jun 2018) - 7.6 - Holding Metformin due to poor appetite; cover with ISS (6) Hyponatremia: - Has remained stable since implementation of salt tabs - Continue salt tabs 1 g TID and routine monitor Na levels (7) Hypertension: - STABLE - Continue Losartan 50 mg daily and Verapamil 240 mg daily (8) Hyperlipidemia: - STABLE - Continue Atorvastatin 40 mg daily (9) Depression: - STABLE - Paxil 40 mg daily (10) Rheumatoid arthritis: - Chronic - Continue Prednisone 1 mg daily - no indication for stress-dosed steroids at this time; Continue pain control measures (11) Cerebrovascular disease: - Chronic - H/O CVA in Jun 2018; Progressive decline from dementia - Continue Aggrenox BID and statin therapy (12) Chronic pain: - Chronic - Recent increase of Fentanyl patch from 12 to 25 mcg - it is possibly this coincides with change in mental status, weakness, and fatigue -- Decreased back to 12.5 mcg; Continue Celebrex 200 mg BID; Gabapentin 100 mg HS; Percocet PRN (13) Restless legs syndrome: - Continue Pramipexole 0.75 mg HS (14) Hyperactivity of bladder: - STABLE - Continue Myrbetriq 25 mg HS (15) DVT prophylaxis: - Do Not Resuscitate Disposition: Resident of [facility]; possible need for SNF on D/C Subjective patient laying in bed no complaints today except that she is still weak however, she states that she feels stronger than when she came in breathing is stable, no chest pain appetite is improving appreciate CM help, she needs to be stronger to return to personal fdc will need updated therapy notes Review of Systems Review of Systems: All systems reviewed & are unremarkable except as noted in HPI & below Constitutional: + fatigue and + weakness; no fever Respiratory: no cough and no dyspnea Cardiovascular: no chest pain and no edema Gastrointestinal: no abdominal pain, no nausea, no vomiting, no constipation and no diarrhea/loose stools Physical Exam Constitutional: WD/WN, vitals as above + thin Eyes: PERRL, conjunctivae normal, anicteric sclerae ENMT: external ear and nose normal, oropharynx normal Neck: trachea midline, no thyromegaly Respiratory: normal respiratory effort, lungs clear to auscultation Cardiovascular: RRR, no murmur, no edema Gastrointestinal (Abdomen): normal bowel sounds, soft, nontender, no hepatosplenomegaly Musculoskeletal: no cyanosis or clubbing, extremities motor strength 5/5 Skin: no rashes, warm and dry Neurologic: patellar DTR's 2+ bilat, sensation intact and PERRL, EOMI, accommodation nl, no face palsy, no dysarthria Psychiatric: Orientation: alert, oriented to person, oriented to place and cooperative; + not oriented to time Lymphatic: no cervical or axillary lymphadenopathy Results & Data Vital Signs (Past 12 Hours) Vital Signs Temp Pulse Resp BP 03/01/19 15:00 36.6 C 86 18 152/72 H Laboratory Results Laboratory Results - last 24 hr 03/01/19 03/01/19 03/01/19 07:58 11:57 16:40 POC Glucose 136 H 120 H 80 03/01/19 21:18 POC Glucose 100 H Medications Administered Current Inpatient Medications Acetaminophen (Tylenol) 650 mg PO Q4H PRN PRN Reason: pain/fever Stop: 03/29/19 02:04 Hydrocodone Bitart/Acetaminophen ([facility] 10/325) 1 tab PO TID PRN PRN Reason: Pain Stop: 03/13/19 08:59 Atorvastatin Calcium (Lipitor) 40 mg PO DAILY [facility] Stop: 03/29/19 08:59 Last Admin: 03/01/19 08:58 Dose: 40 mg Documented by: Carbidopa/Levodopa (Sinemet 25/100 Mg) 0.5 tab PO BID [facility] Stop: 03/29/19 08:59 Last Admin: 03/01/19 21:28 Dose: 0.5 tab Documented by: Celecoxib (Celebrex) 200 mg PO BID [facility] Stop: 03/29/19 08:59 Last Admin: 03/01/19 21:28 Dose: 200 mg Documented by: Dextrose (Dextrose 50%) 25 - 50 ml IV UD PRN; Protocol PRN Reason: Hypoglycemia Protocol Stop: 03/29/19 02:04 Dipyridamole/Aspirin (Aggrenox 200mg/25mg) 1 cap PO Q12 [facility] Stop: 03/29/19 08:59 Last Admin: 03/01/19 21:28 Dose: 1 cap Documented by: Docusate Sodium (Colace) 100 mg PO BID PRN PRN Reason: Constipation Stop: 03/29/19 02:04 Enoxaparin Sodium (Lovenox) 30 mg SQ Q24H [facility] Stop: 03/29/19 05:59 Last Admin: 03/01/19 05:34 Dose: 30 mg Documented by: Fentanyl (Duragesic) 12 mcg TD Q3D@0600 [facility] Stop: 03/13/19 02:30 Last Admin: 02/27/19 03:35 Dose: 12 mcg Documented by: Ferrous Sulfate (Feosol) 325 mg PO BIDM [facility] Stop: 03/29/19 07:59 Last Admin: 03/01/19 18:56 Dose: Not Given Documented by: Folic Acid (Folvite) 1 mg PO DAILY [facility] Stop: 03/29/19 08:59 Last Admin: 03/01/19 08:57 Dose: 1 mg Documented by: Gabapentin (Neurontin) 100 mg PO HS [facility] Stop: 03/29/19 20:59 Last Admin: 03/01/19 21:28 Dose: 100 mg Documented by: Glucagon (Glucagen) 1 mg SQ UD PRN; Protocol PRN Reason: Hypoglycemia Protocol Stop: 03/29/19 02:04 Glucose (Glucose 40%) 15 - 30 gm PO UD PRN; Protocol PRN Reason: Hypoglycemia Protocol Stop: 03/29/19 02:04 Glucose (Dex4 Glucose) 4 - 8 tabs PO UD PRN; Protocol PRN Reason: Hypoglycemia Protocol Stop: 03/29/19 02:04 Ceftriaxone Sodium 1,000 mg/ (Dextrose) 50 mls @ 100 mls/hr IV Q24H [facility]; Protocol Stop: 03/03/19 22:59 Last Infusion: 02/28/19 22:47 Dose: Infused Documented by: Azithromycin 250 mg/ Dextrose 252.5 mls @ 125 mls/hr IV Q24H [facility] Stop: 03/06/19 05:59 Last Infusion: 03/01/19 07:36 Dose: Infused Documented by: Insulin Aspart (Novolog Flexpen) 0 units SC ACHS [facility] Stop: 03/29/19 07:29 Last Admin: 03/01/19 22:27 Dose: Not Given Documented by: Lidocaine (Lidoderm 5%) 1 patch TD DAILY [facility] Stop: 03/29/19 08:59 Last Admin: 03/01/19 08:57 Dose: 1 patch Documented by: Lorazepam (Ativan) 0.5 mg PO Q8 PRN PRN Reason: Anxiety Stop: 03/29/19 02:04 Last Admin: 02/28/19 15:56 Dose: 0.5 mg Documented by: Losartan Potassium (Cozaar) 50 mg PO DAILY [facility] Stop: 03/29/19 08:59 Last Admin: 03/01/19 08:58 Dose: 50 mg Documented by: Miconazole Nitrate (Desenex) 1 appln EXT PRN PRN PRN Reason: skin irritation Stop: 03/29/19 15:09 Mirabegron (Myrbetriq Er) 25 mg PO HS [facility] Stop: 03/29/19 20:59 Last Admin: 03/01/19 21:22 Dose: 25 mg Documented by: Miscellaneous (Fentanyl Patch Check Placement) 1 ea N/A QS [facility] Stop: 03/29/19 07:59 Last Admin: 03/01/19 15:57 Dose: 1 ea Documented by: Miscellaneous (Carbohydrates For Hypoglycemia) 15 - 30 gm PO UD PRN PRN Reason: Hypoglycemia Treatment Stop: 03/29/19 02:04 Miscellaneous (Fentanyl Patch Remove & Waste) 1 ea N/A Q3D@0559 [facility] Stop: 04/01/19 05:58 Miscellaneous (Remove Lidoderm Patch) 1 ea N/A DAILY@2100 [facility] Stop: 03/29/19 20:59 Last Admin: 03/01/19 21:20 Dose: 1 ea Documented by: Pantoprazole Sodium (Protonix) 40 mg PO BID [facility] Stop: 03/29/19 08:59 Last Admin: 03/01/19 21:28 Dose: 40 mg Documented by: Paroxetine HCl (Paxil) 40 mg PO DAILY [facility] Stop: 03/29/19 08:59 Last Admin: 03/01/19 08:57 Dose: 40 mg Documented by: Pramipexole Dihydrochloride (Mirapex) 0.75 mg PO HS [facility] Stop: 03/29/19 20:59 Last Admin: 03/01/19 21:27 Dose: 0.75 mg Documented by: Prednisone (Prednisone) 1 mg PO BID [facility] Stop: 03/29/19 08:59 Last Admin: 03/01/19 21:28 Dose: 1 mg Documented by: Psyllium Hydrophilic Mucilloid (Metamucil) 1 pkt PO BID [facility] Stop: 03/29/19 08:59 Last Admin: 03/01/19 21:24 Dose: Not Given Documented by: Sodium Biphosphate/Sodium Phosphate (Fleet Enema) 132 ml UT DAILY PRN PRN Reason: Constipation Stop: 03/29/19 02:04 Sodium Chloride (Sodium Chloride) 1 gm PO TID [facility] Stop: 03/29/19 08:59 Last Admin: 03/01/19 21:28 Dose: 1 gm Documented by: Verapamil HCl (Calan Sr) 240 mg PO DAILY [facility] Stop: 03/29/19 08:59 Last Admin: 03/01/19 08:58 Dose: 240 mg Documented by: Vitamin D (Vitamin D3) 5,000 units PO QAM [facility] Stop: 03/29/19 08:59 Last Admin: 03/01/19 09:03 Dose: 5,000 units Documented by: PG Care Time/CCT Total # of Minutes Spent Total Time Spent with Patient: Total time spent is greater than 50% in coordination of care (as documented) at patient's floor/unit and/or counseling patient: (1) Pneumonia Laterality: unspecified laterality Lung location: unspecified part of lung Pneumonia type: due to unspecified organism Qualified Code(s): J18.9 - Pneumonia, unspecified organism (2) Diabetes mellitus, controlled Diabetes mellitus type: type 2 Diabetes mellitus group home insulin use: without salvage determiner use Diabetes mellitus complication status: without complication Qualified Code(s): E11.9 - Type 2 diabetes mellitus without complications (3) Hypertension Hypertension type: essential hypertension Qualified Code(s): I10 - Essential (primary) hypertension (4) Hyperlipidemia Hyperlipidemia type: unspecified Qualified Code(s): E78.5 - Hyperlipidemia, unspecified (5) Depression Depression Type: unspecified Qualified Code(s): F32.9 - Major depressive disorder, single episode, unspecified (6) Rheumatoid arthritis Rheumatoid arthritis location: multiple sites Rheumatoid factor presence: unspecified presence Qualified Code(s): M06.9 - Rheumatoid arthritis, unspecified (7) Chronic pain Chronic pain type: other chronic pain Qualified Code(s): G89.29 - Other chronic pain
[2019-03-01] MEDS: cefTRIAXone SODIUM 1,000 MG in DEXTROSE 5% 50 ML IV SCH (23:16)
[2019-03-02] MEDS: CHECK FENTANYL PATCH PLACEMENT SCH ×4 (00:03→23:43)
[2019-03-02] MEDS: fentaNYL 12 MCG/HR TDSY TD SCH (05:38)
[2019-03-02] MEDS: AZITHROMYCIN 250 MG in DEXTROSE 5% 250 ML IV SCH (05:38)
[2019-03-02] MEDS: ENOXAPARIN INJ 30 MG/0.3 ML SYR SQ SCH (05:39)
[2019-03-02] MEDS: INSULIN ASPART 100 UNITS/ML 3 ML PEN SC SCH ×4 (09:05→20:44)
[2019-03-02] MEDS: CARBIDOPA/LEVODOPA 25/100MG TAB PO SCH ×2 (10:32→20:38)
[2019-03-02] MEDS: SODIUM CHLORIDE 1 GM TABLET PO SCH ×3 (10:34→20:40)
[2019-03-02] MEDS: PANTOprazole 40 MG TAB PO SCH ×2 (10:34→20:37)
[2019-03-02] MEDS: CHOLECALCIFEROL 1,000 UNITS TAB PO SCH (10:34)
[2019-03-02] MEDS: LIDOCAINE 5% 1 PATCH TD SCH (10:35)
[2019-03-02] MEDS: ATORVASTATIN 40 MG TAB PO SCH (10:35)
[2019-03-02] MEDS: FOLIC ACID 1 MG TAB PO SCH (10:35)
[2019-03-02] MEDS: PARoxetine HCl 20 MG TAB PO SCH (10:35)
[2019-03-02] MEDS: predniSONE 1 MG TAB PO SCH ×2 (10:35→20:37)
[2019-03-02] MEDS: DIPYRIDAMOLE/ASPIRIN CAP PO SCH ×2 (10:36→20:34)
[2019-03-02] MEDS: CeleBREX 200 MG CAP PO SCH ×2 (10:36→20:34)
[2019-03-02] MEDS: VERAPAMIL HCL 240 MG TABCR PO SCH (10:36)
[2019-03-02] MEDS: FERROUS SULFATE 325 MG TAB PO SCH ×2 (10:36→17:50)
[2019-03-02] MEDS: LOSARTAN POTASSIUM 25 MG TAB PO SCH (10:36)
[2019-03-02] MEDS: PSYLLIUM 58.6% POWDER PACKET PO SCH ×2 (10:37→20:34)
--- NOTE | 2019-03-02 16:20 | Hospitalist Progress Note ---
Date of Service March 02, 2019 Assessment & Plan (1) Lactic acidemia: - Likely due to dehydration and PNA - lactic of 3.3 on admission and trended down quickly - IVF discontinued at this time and will promote oral intake this is resolved (2) Pneumonia: - CXR with a L basilar density - atelectasis vs pneumonia; remains afebrile, no leukocytosis, and has been weaned to RA - Continue Zithromax 250 mg IV daily and Rocephin 1 g IV daily - can convert to oral Zithromax to finish course and likely Omnicef to complete 5 day course; encourage incentive spirometry tomorrow will be day 5 so she will finish treatment in the hospital (3) Confusional state: - Likely multifactorial between metabolic encephalopathy from underlying infection/dehydration; possibly toxic from increased dose of Fentanyl as this was just done about a week ago - this is all superimposed on underlying vascular dementia with has been noted to be progressive; as well H/O CVA (Jun 2018) - reports today she appears much better and back to baseline however still having ongoing weakness which has been developing prior to illness - Fentanyl was decreased back to 12.5 mcg Q72H and may need to consider keeping this dose with an alternative for breakthrough pain vs trial of increased dose when recovered from illness; treatment for infection as above no obvious confusion today (4) Weakness: - Likely multifactorial between general decline and worsened with dehydration/infection - PT/OT evaluations patient's 6 click scores quite low representing a huge percentage of deficit will need to improve to return to personal care get re-evaluated tomorrow (5) Diabetes mellitus, controlled: - STABLE; A1c (Jun 2018) - 7.6 - Holding Metformin due to poor appetite; cover with ISS (6) Hyponatremia: - Has remained stable since implementation of salt tabs - Continue salt tabs 1 g TID and routine monitor Na levels (7) Hypertension: - STABLE - Continue Losartan 50 mg daily and Verapamil 240 mg daily (8) Hyperlipidemia: - STABLE - Continue Atorvastatin 40 mg daily (9) Depression: - STABLE - Paxil 40 mg daily (10) Rheumatoid arthritis: - Chronic - Continue Prednisone 1 mg daily - no indication for stress-dosed steroids at this time; Continue pain control measures (11) Cerebrovascular disease: - Chronic - H/O CVA in Jun 2018; Progressive decline from dementia - Continue Aggrenox BID and statin therapy (12) Chronic pain: - Chronic - Recent increase of Fentanyl patch from 12 to 25 mcg - it is possibly this coincides with change in mental status, weakness, and fatigue -- Decreased back to 12.5 mcg; Continue Celebrex 200 mg BID; Gabapentin 100 mg HS; Percocet PRN (13) Restless legs syndrome: - Continue Pramipexole 0.75 mg HS (14) Hyperactivity of bladder: - STABLE - Continue Myrbetriq 25 mg HS (15) DVT prophylaxis: - Do Not Resuscitate Disposition: Resident of [facility]; possible need for SNF on D/C case management to discuss further with family Subjective patient still weak today she did not do very well with therapy, too weak for personal care CM reached out to her personal usp as well as her , no response no acute issues, breathing well, eating okay no labs today Review of Systems Review of Systems: All systems reviewed & are unremarkable except as noted in HPI & below Constitutional: + fatigue and + weakness Musculoskeletal: + muscle weakness (generalized) Physical Exam Constitutional: WD/WN, vitals as above + thin Eyes: PERRL, conjunctivae normal, anicteric sclerae ENMT: external ear and nose normal, oropharynx normal Neck: trachea midline, no thyromegaly Respiratory: normal respiratory effort, lungs clear to auscultation Cardiovascular: RRR, no murmur, no edema Gastrointestinal (Abdomen): normal bowel sounds, soft, nontender, no hepatosplenomegaly Musculoskeletal: no cyanosis or clubbing, extremities motor strength 5/5 Skin: no rashes, warm and dry Neurologic: patellar DTR's 2+ bilat, sensation intact and PERRL, EOMI, accommodation nl, no face palsy, no dysarthria Psychiatric: Orientation: alert, oriented to person, oriented to place and cooperative; + not oriented to time Lymphatic: no cervical or axillary lymphadenopathy Results & Data Vital Signs (Past 12 Hours) Vital Signs Temp Pulse Resp BP Pulse Ox 03/02/19 14:53 37.3 C 102 H 18 133/85 97 03/02/19 07:27 36.3 C L 76 18 158/74 H 96 Laboratory Results Laboratory Results - last 24 hr 03/01/19 03/01/19 03/02/19 16:40 21:18 07:56 POC Glucose 80 100 H 137 H 03/02/19 11:50 POC Glucose 167 H Medications Administered Current Inpatient Medications Acetaminophen (Tylenol) 650 mg PO Q4H PRN PRN Reason: pain/fever Stop: 03/29/19 02:04 Hydrocodone Bitart/Acetaminophen (Tucker 10/325) 1 tab PO TID PRN PRN Reason: Pain Stop: 03/13/19 08:59 Atorvastatin Calcium (Lipitor) 40 mg PO DAILY [facility] Stop: 03/29/19 08:59 Last Admin: 03/02/19 10:35 Dose: 40 mg Documented by: Azithromycin (Zithromax) 250 mg PO DAILY [facility] Stop: 03/05/19 09:01 Carbidopa/Levodopa (Sinemet 25/100 Mg) 0.5 tab PO BID [facility] Stop: 03/29/19 08:59 Last Admin: 03/02/19 10:32 Dose: 0.5 tab Documented by: Celecoxib (Celebrex) 200 mg PO BID [facility] Stop: 03/29/19 08:59 Last Admin: 03/02/19 10:36 Dose: 200 mg Documented by: Dextrose (Dextrose 50%) 25 - 50 ml IV UD PRN; Protocol PRN Reason: Hypoglycemia Protocol Stop: 03/29/19 02:04 Dipyridamole/Aspirin (Aggrenox 200mg/25mg) 1 cap PO Q12 [facility] Stop: 03/29/19 08:59 Last Admin: 03/02/19 10:36 Dose: 1 cap Documented by: Docusate Sodium (Colace) 100 mg PO BID PRN PRN Reason: Constipation Stop: 03/29/19 02:04 Enoxaparin Sodium (Lovenox) 30 mg SQ Q24H [facility] Stop: 03/29/19 05:59 Last Admin: 03/02/19 05:39 Dose: 30 mg Documented by: Fentanyl (Duragesic) 12 mcg TD Q3D@0600 [facility] Stop: 03/13/19 02:30 Last Admin: 03/02/19 05:38 Dose: 12 mcg Documented by: Ferrous Sulfate (Feosol) 325 mg PO BIDM [facility] Stop: 03/29/19 07:59 Last Admin: 03/02/19 10:36 Dose: 325 mg Documented by: Folic Acid (Folvite) 1 mg PO DAILY [facility] Stop: 03/29/19 08:59 Last Admin: 03/02/19 10:35 Dose: 1 mg Documented by: Gabapentin (Neurontin) 100 mg PO HS [facility] Stop: 03/29/19 20:59 Last Admin: 03/01/19 21:28 Dose: 100 mg Documented by: Glucagon (Glucagen) 1 mg SQ UD PRN; Protocol PRN Reason: Hypoglycemia Protocol Stop: 03/29/19 02:04 Glucose (Glucose 40%) 15 - 30 gm PO UD PRN; Protocol PRN Reason: Hypoglycemia Protocol Stop: 03/29/19 02:04 Glucose (Dex4 Glucose) 4 - 8 tabs PO UD PRN; Protocol PRN Reason: Hypoglycemia Protocol Stop: 03/29/19 02:04 Ceftriaxone Sodium 1,000 mg/ (Dextrose) 50 mls @ 100 mls/hr IV Q24H [facility]; Protocol Stop: 03/03/19 22:59 Last Infusion: 03/01/19 23:46 Dose: Infused Documented by: Insulin Aspart (Novolog Flexpen) 0 units SC ACHS [facility] Stop: 03/29/19 07:29 Last Admin: 03/02/19 12:33 Dose: 4 units Documented by: Lidocaine (Lidoderm 5%) 1 patch TD DAILY [facility] Stop: 03/29/19 08:59 Last Admin: 03/02/19 10:35 Dose: 1 patch Documented by: Lorazepam (Ativan) 0.5 mg PO Q8 PRN PRN Reason: Anxiety Stop: 03/29/19 02:04 Last Admin: 02/28/19 15:56 Dose: 0.5 mg Documented by: Losartan Potassium (Cozaar) 50 mg PO DAILY [facility] Stop: 03/29/19 08:59 Last Admin: 03/02/19 10:36 Dose: 50 mg Documented by: Miconazole Nitrate (Desenex) 1 appln EXT PRN PRN PRN Reason: skin irritation Stop: 03/29/19 15:09 Mirabegron (Myrbetriq Er) 25 mg PO HS [facility] Stop: 03/29/19 20:59 Last Admin: 03/01/19 21:22 Dose: 25 mg Documented by: Miscellaneous (Fentanyl Patch Check Placement) 1 ea N/A QS [facility] Stop: 03/29/19 07:59 Last Admin: 03/02/19 09:01 Dose: 1 ea Documented by: Miscellaneous (Carbohydrates For Hypoglycemia) 15 - 30 gm PO UD PRN PRN Reason: Hypoglycemia Treatment Stop: 03/29/19 02:04 Miscellaneous (Fentanyl Patch Remove & Waste) 1 ea N/A Q3D@0559 [facility] Stop: 04/01/19 05:58 Last Admin: 03/02/19 05:38 Dose: 1 ea Documented by: Miscellaneous (Remove Lidoderm Patch) 1 ea N/A DAILY@2100 [facility] Stop: 03/29/19 20:59 Last Admin: 03/01/19 21:20 Dose: 1 ea Documented by: Pantoprazole Sodium (Protonix) 40 mg PO BID [facility] Stop: 03/29/19 08:59 Last Admin: 03/02/19 10:34 Dose: 40 mg Documented by: Paroxetine HCl (Paxil) 40 mg PO DAILY [facility] Stop: 03/29/19 08:59 Last Admin: 03/02/19 10:35 Dose: 40 mg Documented by: Pramipexole Dihydrochloride (Mirapex) 0.75 mg PO HS [facility] Stop: 03/29/19 20:59 Last Admin: 03/01/19 21:27 Dose: 0.75 mg Documented by: Prednisone (Prednisone) 1 mg PO BID [facility] Stop: 03/29/19 08:59 Last Admin: 03/02/19 10:35 Dose: 1 mg Documented by: Psyllium Hydrophilic Mucilloid (Metamucil) 1 pkt PO BID [facility] Stop: 03/29/19 08:59 Last Admin: 03/02/19 10:37 Dose: 1 pkt Documented by: Sodium Biphosphate/Sodium Phosphate (Fleet Enema) 132 ml OR DAILY PRN PRN Reason: Constipation Stop: 03/29/19 02:04 Sodium Chloride (Sodium Chloride) 1 gm PO TID [facility] Stop: 03/29/19 08:59 Last Admin: 03/02/19 14:02 Dose: 1 gm Documented by: Verapamil HCl (Calan Sr) 240 mg PO DAILY [facility] Stop: 03/29/19 08:59 Last Admin: 03/02/19 10:36 Dose: 240 mg Documented by: Vitamin D (Vitamin D3) 5,000 units PO QAM [facility] Stop: 03/29/19 08:59 Last Admin: 03/02/19 10:34 Dose: 5,000 units Documented by: PG Care Time/CCT Total # of Minutes Spent Total Time Spent with Patient: Total time spent is greater than 50% in coordination of care (as documented) at patient's floor/unit and/or counseling patient: (1) Rheumatoid arthritis Rheumatoid arthritis location: multiple sites Rheumatoid factor presence: unspecified presence Qualified Code(s): M06.9 - Rheumatoid arthritis, unspecified (2) Diabetes mellitus, controlled Diabetes mellitus complication status: without complication Diabetes mellitus manager terminal insulin use: without manager terminal use Diabetes mellitus type: type 2 Qualified Code(s): E11.9 - Type 2 diabetes mellitus without complications (3) Chronic pain Chronic pain type: other chronic pain Qualified Code(s): G89.29 - Other chronic pain (4) Depression Depression Type: unspecified Qualified Code(s): F32.9 - Major depressive disorder, single episode, unspecified (5) Hyperlipidemia Hyperlipidemia type: unspecified Qualified Code(s): E78.5 - Hyperlipidemia, unspecified (6) Hypertension Hypertension type: essential hypertension Qualified Code(s): I10 - Essential (primary) hypertension (7) Pneumonia Laterality: unspecified laterality Lung location: unspecified part of lung Pneumonia type: due to unspecified organism Qualified Code(s): J18.9 - Pneumonia, unspecified organism
[2019-03-02] MEDS: PRAMIPEXOLE DIHYDROCHLO 0.25 MG TAB PO SCH (20:35)
[2019-03-02] MEDS: MIRABEGRON ER 25 MG TAB PO SCH (20:35)
[2019-03-02] MEDS: GABAPENTIN 100 MG CAP PO SCH (20:35)
[2019-03-02] MEDS: cefTRIAXone SODIUM 1,000 MG in DEXTROSE 5% 50 ML IV SCH (23:42)
[2019-03-03] MEDS: ENOXAPARIN INJ 30 MG/0.3 ML SYR SQ SCH (05:31)
[2019-03-03 06:16] LABS: Hematocrit (blood only) 34.1 % (37-47); Hemoglobin 11.6 g/dL (12.0-16.0); Mean Corpuscular Hemoglobin 33.1 pg (25-34); Mean Corpuscular Volume 97.4 fL (80-100); Platelet Count 240 K/uL (130-400); RDW Coefficient of Variation 12.9 % (11.5-14.5); RDW Standard Deviation 45.5 fL (36.4-46.3); White Blood Count 4.12 K/uL (4.8-10.8)
[2019-03-03 06:50] LABS: BUN Creatinine Ratio 9.2 (10-20); Calcium 8.5 mg/dl (8.5-10.1); Creatinine Clr Calc Pharmacy 43.3 ml/min; Est GFR (Non-African American) 60.4; Potassium 3.4 mmol/L (3.5-5.1)
[2019-03-03 07:03] VITALS: BP 134/66; PULSE 70; TEMP 98.2; O2SAT 90
[2019-03-03] MEDS: CHECK FENTANYL PATCH PLACEMENT SCH (08:47)
[2019-03-03] MEDS: FERROUS SULFATE 325 MG TAB PO SCH (08:48)
[2019-03-03] MEDS: DIPYRIDAMOLE/ASPIRIN CAP PO SCH (08:48)
[2019-03-03] MEDS: ATORVASTATIN 40 MG TAB PO SCH (08:48)
[2019-03-03] MEDS: LIDOCAINE 5% 1 PATCH TD SCH (08:48)
[2019-03-03] MEDS: SODIUM CHLORIDE 1 GM TABLET PO SCH ×2 (08:48→13:52)
[2019-03-03] MEDS: CHOLECALCIFEROL 1,000 UNITS TAB PO SCH (08:48)
[2019-03-03] MEDS: PANTOprazole 40 MG TAB PO SCH (08:48)
[2019-03-03] MEDS: predniSONE 1 MG TAB PO SCH (08:49)
[2019-03-03] MEDS: FOLIC ACID 1 MG TAB PO SCH (08:49)
[2019-03-03] MEDS: CARBIDOPA/LEVODOPA 25/100MG TAB PO SCH (08:49)
[2019-03-03] MEDS: PARoxetine HCl 20 MG TAB PO SCH (08:50)
[2019-03-03] MEDS: PSYLLIUM 58.6% POWDER PACKET PO SCH (08:50)
[2019-03-03] MEDS: VERAPAMIL HCL 240 MG TABCR PO SCH (08:50)
[2019-03-03] MEDS: CeleBREX 200 MG CAP PO SCH (08:50)
[2019-03-03] MEDS ORDERED: AZITHROMYCIN 250 MG TAB PO SCH (09:00)
[2019-03-03] MEDS: INSULIN ASPART 100 UNITS/ML 3 ML PEN SC SCH ×2 (09:01→12:45)
[2019-03-03] MEDS: LOSARTAN POTASSIUM 25 MG TAB PO SCH (13:12)
--- NOTE | 2019-03-06 08:17 | Discharge Summary ---
Date of Service March 03, 2019 Admission HPI Per Admitting Provider Center Jose Antonio is an 79-year-old female with multiple medical problems presenting from her alf with possible pneumonia. Caretakers at the alf commented the patient has had generalized weakness, fatigue, decreased p.o. intake, not acting herself and requiring more assistance in ADLs. The symptoms have been ongoing for approximately 1 week. The daughter visited today and she was told that over the past 4 days the patient has been needing 2 people to assist her in standing. This is different from her baseline where the patient can stand with minimal assistance. She has also had a dry cough for the last 2 days and was found to be hypoxic at 80% today around 2029. She also became briefly confused where she was having a difficult time following commands. She was placed on 2 L of oxygen with improvement in saturations and mental faculties. Patient offers no complaints. Denies pain. Denies shortness of breath/fever/chills/nausea/vomiting/diarrhea. She has been constipated lately ER course: Ceftriaxone, normal saline Principal Diagnosis Left lower lobe pneumonia Discharge Exam Constitutional WD/WN, vitals as above + thin Eyes PERRL, conjunctivae normal, anicteric sclerae ENMT external ear and nose normal, oropharynx normal Neck trachea midline, no thyromegaly Respiratory normal respiratory effort, lungs clear to auscultation Cardiovascular RRR, no murmur, no edema Gastrointestinal (Abdomen) normal bowel sounds, soft, nontender, no hepatosplenomegaly Musculoskeletal no cyanosis or clubbing, extremities motor strength 5/5 Skin no rashes, warm and dry Neurologic patellar DTR's 2+ bilat, sensation intact and PERRL, EOMI, accommodation nl, no face palsy, no dysarthria Psychiatric Orientation: alert, oriented to person, oriented to place and cooperative; + not oriented to time Lymphatic no cervical or axillary lymphadenopathy Discharge Data Allergies Allergy/AdvReac Type Severity Reaction Status Date / Time Penicillins Allergy Intermediate HIVES Verified 02/26/19 23:18 adhesive Allergy Unknown SKIN Verified 02/26/19 23:18 REDNESS AND IRRITATION latex Allergy Unknown PATIENT Verified 02/26/19 23:18 UNSURE tolterodine AdvReac Intermediate GI SYMPTOMS Verified 02/26/19 23:18 Consultations 02/26/19 23:48 ED Decision to Admit Stat Ordered Studies 02/26/19 22:17 CT head/brain wo con Stat Hospital Course (1) Pneumonia: - CXR with a L basilar density - atelectasis vs pneumonia; remains afebrile, no leukocytosis, and has been weaned to RA - Continue Zithromax 250 mg IV daily and Rocephin 1 g IV daily : completed 5 days inpatient treatment, stable, no need for any oral antibiotics on discharge (2) Lactic acidemia: - Likely due to dehydration and PNA - lactic of 3.3 on admission and trended down quickly - IVF discontinued at this time and will promote oral intake (3) Confusional state: - Likely multifactorial between metabolic encephalopathy from underlying infection/dehydration; possibly toxic from increased dose of Fentanyl as this was just done about a week ago - this is all superimposed on underlying vascular dementia with has been noted to be progressive; as well H/O CVA (Jun 2018) - reports mental status back to baseline however still having ongoing weakness which has been developing prior to illness - Fentanyl was decreased back to 12.5 mcg Q72H and may need to consider keeping this dose with an alternative for breakthrough pain vs trial of increased dose when recovered from illness; treatment for infection as above no obvious confusion today, ready to go back to personal residential (4) Weakness: - Likely multifactorial between general decline and worsened with dehydration/infection - PT/OT evaluations patient's 6 click scores quite low representing a huge percentage of deficit however, she is at her baseline and they have been able to manage her at [facility], will return there (5) Diabetes mellitus, controlled: - STABLE; A1c (Jun 2018) - 7.6 - Holding Metformin due to poor appetite; cover with ISS (6) Hyponatremia: - Has remained stable since implementation of salt tabs - Continue salt tabs 1 g TID and routine monitor Na levels (7) Hypertension: - STABLE - Continue Losartan 50 mg daily and Verapamil 240 mg daily (8) Hyperlipidemia: - STABLE - Continue Atorvastatin 40 mg daily (9) Depression: - STABLE - Paxil 40 mg daily (10) Rheumatoid arthritis: - Chronic - Continue Prednisone 1 mg daily - no indication for stress-dosed steroids at this time; Continue pain control measures (11) Cerebrovascular disease: - Chronic - H/O CVA in Jun 2018; Progressive decline from dementia - Continue Aggrenox BID and statin therapy (12) Chronic pain: - Chronic - Recent increase of Fentanyl patch from 12 to 25 mcg - it is possibly this coincides with change in mental status, weakness, and fatigue -- Decreased back to 12.5 mcg; Continue Celebrex 200 mg BID; Gabapentin 100 mg HS; Percocet PRN (13) Restless legs syndrome: - Continue Pramipexole 0.75 mg HS (14) Hyperactivity of bladder: - STABLE - Continue Myrbetriq 25 mg HS Total Time Total Time Spent Total Time Spent (In Minutes): 32 minutes Discharge Plan Discharge Items Patient Disposition: [facility] Reason For Visit: WEAKNESS, FATIGUE, ? PNEUMONIA Discharge Diagnosis: Pneumonia Encephalopathy, multifactorial Condition: Good Discharge Goals: Improve disease control and Improve function Activity: Resume your previous activity Non-emergency contact: Primary Care Provider Call non-emergency contact if: you have any medication questions, your symptoms worsen and you have a fever Follow-up/Referrals: Manuel Crum III, MD [Primary Care Provider] - Diet: Heart Healthy Addtl Provider Instructions: Medications: note the following new meds or changes - ZITHROMAX: take for one more day, 250mg tablet - FENTANYL: patch decreased from 25mcg to 12mcg Pneumonia: small left lower lobe infiltrate, treated with Rocephin IV and Zithromax, can finish one more dose of Zithromax for total of 5 days of therapy vitals stable, no fever, WBC normal Confusion and weakness: multifactorial likely combination of pneumonia, increased dose of Fentanyl patch, other m edications and baseline history of stroke treated with antibiotics and iv fluids physical and occupational therapy lowered dose of Fentanyl patch to 12mcg Follow up with Dr. Crum in one week, please call for hospital follow up visit Prescriptions: New fentanyl 12 mcg/hr Patch 72 Hour 12 mcg transdermal Q3D@0600 30 Days Qty: 10 RF: 0 Continued losartan 25 mg tablet 50 mg PO DAILY RF: 0 aspirin-dipyridamole [Aggrenox] 25-200 mg capsule, ER multiphase 12 hr 1 cap PO Q12 30 Days Qty: 30 RF: 5 ferrous sulfate 325 mg (65 mg iron) tablet 325 mg PO BID 30 Days Qty: 60 RF: 5 hydrocodone-acetaminophen 10-325 mg tablet 1 tab PO TID Qty: 90 RF: 0 gabapentin [Neurontin] 100 mg capsule 100 mg PO HS Qty: 90 RF: 2 pramipexole 0.75 mg tablet 0.75 mg PO HS Qty: 90 RF: 3 verapamil [Calan SR] 240 mg tablet extended release 240 mg PO DAILY Qty: 90 RF: 3 atorvastatin [Lipitor] 40 mg tablet 40 mg PO DAILY Qty: 90 RF: 3 lorazepam 0.5 mg tablet 0.5 mg PO Q8 PRN (Reason: Anxiety) Qty: 30 RF: 0 metformin [Glucophage] 500 mg tablet 500 mg PO BID Qty: 180 RF: 3 pantoprazole 20 mg Tablet,Delayed Release (Dr/Ec) 20 mg PO BID RF: 0 meclizine 12.5 mg tablet 12.5 mg PO BID PRN (Reason: dizzyness) RF: 0 acetaminophen 500 mg Tablet 500 mg PO Q4 MDD 3 GRAMS/24 HOURS PRN (Reason: Fever Or Pain) RF: 0 paroxetine HCl 40 mg Tablet 40 mg PO DAILY RF: 0 carbidopa-levodopa [Sinemet] 25-100 mg tablet 0.5 tab PO BID RF: 0 cholecalciferol (vitamin D3) [Vitamin D3] 5,000 unit Tablet 5,000 unit PO QAM RF: 0 celecoxib 400 mg Capsule 200 mg PO BID RF: 0 docusate sodium 100 mg Capsule 100 mg PO BID PRN (Reason: Constipation) RF: 0 furosemide [Lasix] 20 mg tablet 20 mg PO DIRECTED PRN (Reason: weight gain/leg swelling) RF: 0 Benefiber Clear SF (dextrin) 3 gram/3.5 gram Powder In Packet 1 packet PO BID RF: 0 Myrbetriq 50 mg tablet extended release 24 hr 25 mg PO HS RF: 0 prednisone 2.5 mg tablet 1 mg PO BID RF: 0 Fleet Enema 19-7 gram/118 mL Enema 118 ml [place] DAILY PRN (Reason: Constipation) RF: 0 lidocaine 5 % Adhesive Patch,Medicated 1 patch TOPICAL DAILY RF: 0 folic acid 1 mg Tablet 1 mg PO DAILY RF: 0 sodium chloride 1 gram Tablet 1,000 mg PO TID RF: 0 Discontinued sodium chloride 1 gram tablet 1 g PO TID 30 Days Qty: 90 RF: 5 fentanyl 25 mcg/hr patch 72 hour 1 patch TD Q72H Qty: 10 RF: 0 Stand-Alone Forms: [facility] Discharge Orders: Discharge Order (Routine); Ordered 03/03/19 Ordered By: Mitch Eller Admission Data Admit Date/Time: 03/02/19 08:39 Attending Provider: Mitch Eller Admit Provider: Jasmyne Negron Primary Care Provider: Manuel Crum III Other Providers: Jasmyne Negron Service: Medical Other Interventions: Discharge Summary Assessment (RN) Last Done: 03/03/19 13:03 DC Date/Time DO NOT enter until pt leaves facility: 03/03/19 15:50
== END 2019-03-03 15:50 | disposition home or self-care (01) | DRG 193 ==
LOC: ED 22:00 → 4W 22:00 → SUATTDRO 02-27 01:21 → 4W 02-27 01:49